=== PATIENT | female | born 1945 | race Caucasian/White ===

== ENCOUNTER 2016-10-12 16:01 | Inpatient (IN) | payer MEDICARE, MEDICAID ==
--- NOTE | 2016-10-12 16:14 | ED PDOC ---
Arrival/HPI - General Chief Complaint: Dizziness/Lightheaded Time Seen by Provider: 10/12/16 16:10 Historian: Family - History of Present Illness Narrative History of Present Illness (Text): 10/12/16 16:14 A 71 year old female, whose past medical history includes type 2 diabetes, hypertension, dyslipidemia, subaortic stenosis, pulmonary hypertension, and junctional bradycardia arrhythmias, was brought into the emergency department by family complaining of lethargy and generalized weakness today. History provided by family members who are present in the emergency room and through the phone. Family reports patient has been compliant with her medication and took it this morning. Family deny any fever, vomiting, diarrhea, chest pain, shortness of breath or any other complaints. HPI and ROS limited due to the acuity of patients condition. PMD: Dr. Almeida Time/Duration: Other (Today) Symptom Course: Unchanged Quality: Other Context: Home Past Medical History - Provider Review Nursing Documentation Reviewed: Yes - Infectious Disease Hx of Infectious Diseases: None - Tetanus Immunization Tetanus Immunization: Unknown - Cardiac Hx Cardiac Disorders: Yes Hx Hypertension: Yes - Pulmonary Hx Respiratory Disorders: Yes Hx Chronic Obstructive Pulmonary Disease (COPD): Yes - Neurological Hx Neurological Disorder: Yes (syncope) Hx Dizziness: Yes - HEENT Hx HEENT Disorder: Yes Hx Cataracts: (denies) Other/Comment: according to family pt had b/l eye sx but not for cataracts, unknown what the sx was for - Renal Hx Renal Disorder: Yes Hx Renal Failure: (renal insufficiency) - Endocrine/Metabolic Hx Endocrine Disorders: Yes Hx Diabetes Mellitus Type 2: Yes - Hematological/Oncological Hx Blood Disorders: Yes Hx Anemia: Yes - Integumentary Hx Dermatological Disorder: No - Musculoskeletal/Rheumatological Hx Musculoskeletal Disorders: Yes Hx Arthritis: Yes Hx Rheumatoid Arthritis: Yes - Gastrointestinal Hx Gastrointestinal Disorders: Yes Hx Gastroesophageal Reflux: Yes - Genitourinary/Gynecological Hx Genitourinary Disorders: No - Psychiatric Hx Psychophysiologic Disorder: No Hx Substance Use: No - Surgical History Hx Cardiac Catheterization: Yes Other/Comment: malignant neoplasm of 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 - Anesthesia Hx Anesthesia: Yes Hx Anesthesia Reactions: No Hx Malignant Hyperthermia: No - Suicidal Assessment Feels Threatened In Home Enviroment: No Family/Social History - Physician Review Nursing Documentation Reviewed: Yes Family/Social History: No Known Family HX Smoking Status: Never Smoked Hx Alcohol Use: No Hx Substance Use: No Hx Substance Use Treatment: No Allergies/Home Meds Allergies/Adverse Reactions: Allergies No Known Allergies Allergy (Verified 10/12/16 16:10) Home Medications: Home Meds Medication Instructions Recorded Confirmed Atorvastatin Calcium [Lipitor] 40 mg PO HS 05/19/14 10/12/16 Liraglutide [Victoza 2-Elvin] 1.8 mg SC DAILY 05/19/14 10/12/16 Sitagliptin Phos/Metformin HCl 1 each PO BID 05/29/16 10/12/16 [Janumet 50-1,000 mg Tablet] Furosemide [Lasix] 20 mg PO DAILY 06/02/16 10/12/16 amLODIPine [Norvasc] 10 mg PO DAILY 06/02/16 10/12/16 Acetaminophen/Butalbital/Caf 1 tab PO QID 10/12/16 10/12/16 [Fioricet] Cyanocobalamin [Vitamin B12 100 100 mcg PO DAILY 10/12/16 10/12/16 mcg Tab] FLUoxetine [Prozac] 10 mg PO DAILY 10/12/16 10/12/16 Famotidine [Pepcid] 20 mg PO BID 10/12/16 10/12/16 Furosemide [Lasix] 40 mg PO DAILY 10/12/16 10/12/16 Gabapentin [Neurontin] 300 mg PO DAILY 10/12/16 10/12/16 Lipase/Protease/Amylase [Creon Dr 1 each PO TID 10/12/16 10/12/16 24,000 Units Capsule] Losartan [Cozaar] 100 mg PO DAILY 10/12/16 10/12/16 Metoprolol Succinate [Toprol XL] 25 mg PO DAILY 10/12/16 10/12/16 Potassium Chloride [K-Dur 20] 20 meq PO DAILY 10/12/16 10/12/16 Solifenacin Succinate [Vesicare] 5 mg PO DAILY 10/12/16 10/12/16 Review of Systems - Review of Systems Systems not reviewed;Unavailable: Acuity of Condition Physical Exam - Physical Exam Narrative Physical Exam (Text): - Physical exam Patient appears age appropriate, breathing without difficulty and no airway comprise. - Systems Exam Head: Present: Atraumatic, Normocephalic Pupils: Present: PERRL Extraocular Muscles: Present: EOMI Conjunctiva: Present: Normal Mouth: Present: Moist Mucous Membranes Neck: Present: Normal Range of Motion. No: MIDLINE TENDERNESS, Paraspinal Tenderness Respiratory/Chest: Present: Clear to Auscultation, Good Air Exchange. No: Respiratory Distress, Accessory Muscle Use, Tachypneic Cardiovascular: Present: Regular Rate and Rhythm, Normal S1, S2, Peripheral Pulses Present. No: Murmurs Abdomen: Present: Normal Bowel Sounds, No: Tenderness, Peritoneal Signs, Rebound, Guarding, Distention Back: Present: Normal Inspection. No: Midline Tenderness, Paraspinal Tenderness Upper Extremity: Present: Normal Inspection. No: Cyanosis, Edema Lower Extremity: +1 pitting edema bilaterally, with no asymmetry or tenderness to palpation. Neurological: Present: GCS=15, cranial nerves II through XII fully intact with no cerebellar abnormality, neuro-sensory fully intact. No focal neurological deficits. Skin: Present: Warm, Dry, Normal Color. No: Rashes Lymphatic: Present: OX3, NI, NC Psychiatric: Present: Alert, Lethargic. No: Anxiety Vital Signs Reviewed: Yes Vital Signs Temp Pulse Resp BP Pulse Ox 10/12/16 18:58 46 L 16 79/36 L 98 10/12/16 18:36 75 16 96/46 L 99 10/12/16 18:25 55 L 20 107/43 L 100 10/12/16 18:00 46 L 114/80 99 10/12/16 17:30 42 L 18 100/42 L 98 10/12/16 17:15 42 L 18 80/43 L 98 10/12/16 17:00 44 L 18 73/45 L 99 10/12/16 16:45 44 L 18 96/44 L 98 10/12/16 16:30 44 L 16 93/44 L 99 10/12/16 16:14 97.5 F L 44 L 14 103/49 L 94 L Temperature: Afebrile Blood Pressure: Hypotensive Pulse: Bradycardic Respiratory Rate: Normal Appearance: Positive for: Well-Appearing, Non-Toxic, Comfortable Pain Distress: None Mental Status: Positive for: Lethargic, other (Alert) Medical Decision Making ED Course and Treatment: 10/12/16 16:14 Impression: A 71 year old female brought in by family for lethargy and generalized weakness. On evaluation, patient is alert and lethargic. No airway compromise or difficulty breathing. Differential Diagnosis included but are not limited to: Hyperkalemia vs. Electrolyte disturbance vs. Hypothyroidism Plan: -- Chest xray -- Labs -- Blood and Urine culture -- Urinalysis -- Atropine and IV fluids -- Reassess and disposition Prior Visits: Patient's previous records reviewed. Patient was discharged on 06/02/16 from the hospital after being admitted for weakness, dyspnea, and palpitations. Patient was found to be hyperkalemic at 5.7 and she also had acute kidney injury and was bradycardic. Patient was admitted into the intensive care unit. Patient had an echo performed which showed ejection fraction of 60-65% with dilated IVC which was consistent with her known history of pulmonary hypertension. Progress Notes: 10/12/16 17:00 Patient's chest x-ray shows cardiomegaly, no effusions, no pneumothorax. No changes versus 06/01/60. Interpreted by me. Patient's EKG shows junctional bradycardia, 43 bpm, no ST segment elevations. Interpreted by me. 10/12/16 17:[address] Harrington, from ICU, who states he will evaluate patient Case discussed in detail with Dr. Mar, kitman, who recommends to start patient on Dopamine at 2.5 10/12/16 17:25 pt's repeat BP in the 100's systolic repeat EKG still junctional 40's pt's family report no betal luis meds. calling pharmacy to confirm pt evaluated by Dr. Harrington, recommends intubation. pt's breathing worsened, needs intubation for airway protection PROCEDURE: INTUBATION Performed by the emergency provider Time: 18:00 Consent: Emergent Timeout: A timeout to verify the correct patient, procedure, and site was performed. Pre-oxygenation: [id number] and passive oxygenation ETT Size: 7 Confirmation: Cords directly visualized via glidascope. as tube passed, good bilateral breath sounds, positive CO2 detector color change, tube fogging, adequate chest rise, improving pulse oximetry reading, improved skin color, and absence of gastric sounds,. ETT Secured: The cuff was inflated and the tube was secured appropriately at a distance of 22 cm at the lip. Post-Procedure: There were no immediate complications. pt seen by Dr. Mar, placed orders 10/12/16 19:21 confirmed with pt's RN, states called pharmacy and pt is taking metoprolol. glucagon ordered - Critical Care Critical Care Minutes: 30 minutes - Lab Interpretations Lab Results: 10/12/16 16:16 10/12/16 16:16 Lab Results 10/12/16 16:16: TSH 3rd Generation 3.20 10/12/16 16:16: Sodium 134, Potassium 4.5, Chloride 100, Carbon Dioxide 23, Anion Gap 16, BUN 50 H, Creatinine 1.3, Est GFR ( Amer) 49, Est GFR (Non- Af Amer) 40, Random Glucose 255 H, Calcium 8.8, Phosphorus 4.7 H, Magnesium 2.0 , Total Bilirubin 0.4, AST 14 L, ALT 20, Alkaline Phosphatase 133, Lactate Dehydrogenase 511, Total Creatine Kinase 45, Troponin I < 0.01 D, NT-Pro-B Natriuret Pep 838 H, Total Protein 7.3, Albumin 3.7, Globulin 3.6, Albumin/ Globulin Ratio 1.0 L 10/12/16 16:16: PT 10.9, INR 1.01, APTT 30.5 10/12/16 16:16: WBC 5.7 D, RBC 3.44 L, Hgb 9.5 L, Hct 29.2 L, MCV 84.9, MCH 27.6, MCHC 32.5, RDW 14.7 H, Plt Count 276, MPV 10.8, Gran % 64.6, Lymph % (Auto ) 22.2, Sawyer % (Auto) 8.6 H, Eos % (Auto) 3.7, Baso % (Auto) 0.9, Gran # 3.67, Lymph # 1.3, Sawyer # 0.5, Eos # 0.2, Baso # 0.05 I have reviewed the lab results: Yes - RAD Interpretation Radiology Orders: 10/12/16 16:22 CHEST PORTABLE [RAD] Stat 10/12/16 18:29 CXR [CHEST PORTABLE] [RAD] Stat 10/12/16 19:02 CHEST,ABDOMEN, PELVIS W/O CONT [CT] Stat - Medication Orders Current Medication Orders: Dopamine HCl/Dextrose (Dopamine 400mg/250ml D5w) 400 mg in 250 mls @ 9.777 mls/ hr IV .Q24H PRN; Protocol; 2.5 MCG/KG/MIN PRN Reason: TITRATE PER MD ORDER Last Admin: 10/12/16 17:32 Dose: 9.777 mls/hr Ceftriaxone Sodium (Rocephin 1 Gram Ivpb) 1 gm in 100 mls @ 200 mls/hr IVPB STAT STA PRN Reason: Protocol Stop: 10/12/16 19:30 Last Admin: 10/12/16 19:16 Dose: 200 mls/hr Propofol (Diprivan) 1,000 mg in 100 mls @ 3.13 mls/hr IV .Q24H PRN; Protocol; 5 MCG/KG/MIN PRN Reason: TITRATE PER MD ORDER Discontinued Medications Atropine Sulfate (Atropine) Confirm Administered Dose 1 mg .ROUTE .STK-MED ONE Stop: 10/12/16 16:21 Last Admin: 10/12/16 16:22 Dose: 0.5 mg Atropine Sulfate (Atropine) 0.5 mg IVP STAT STA Stop: 10/12/16 16:24 Last Admin: 10/12/16 16:35 Dose: 0.5 mg Fentanyl (Fentanyl) Confirm Administered Dose 250 mcg IV .STK-MED ONE Stop: 10/12/16 17:53 Last Admin: 10/12/16 19:04 Dose: 250 mcg Sodium Chloride (Sodium Chloride 0.9%) 1,000 mls @ 1,000 mls/hr IV .Q1H STA Stop: 10/12/16 17:21 Last Admin: 10/12/16 16:35 Dose: 1,000 mls/hr Dopamine HCl/Dextrose (Dopamine 400mg/250ml D5w) Confirm Administered Dose 400 mg in 250 mls @ ud IV .STK-MED ONE Stop: 10/12/16 17:27 Last Admin: 10/12/16 19:07 Dose: Propofol (Diprivan) Confirm Administered Dose 1,000 mg in 100 mls @ ud .ROUTE .STK-MED ONE Stop: 10/12/16 18:26 Last Admin: 10/12/16 18:30 Dose: 5 mg Ketamine HCl (Ketalar) Confirm Administered Dose 200 mg .ROUTE .STK-MED ONE Stop: 10/12/16 17:48 Last Admin: 10/12/16 18:20 Dose: 140 mg - Scribe Statement The provider has reviewed the documentation as recorded by the Chikaibmary ann Ellington Provider Scribe Attestation: All medical record entries made by the Scribe were at my direction and personally dictated by me. I have reviewed the chart and agree that the record accurately reflects my personal performance of the history, physical exam, medical decision making, and the department course for this patient. I have also personally directed, reviewed, and agree with the discharge instructions and disposition. Disposition/Present on Arrival - Present on Arrival Any Indicators Present on Arrival: No History of DVT/PE: No History of Uncontrolled Diabetes: No Urinary Catheter: No History of Decub. Ulcer: No History Surgical Site Infection Following: None - Disposition Have Diagnosis and Disposition been Completed?: Yes Diagnosis: Bradycardia Disposition: HOSPITALIZED Disposition Time: 18:42 Patient Plan: Admission Condition: CRITICAL Referrals: David Almeida MD [Primary Care Provider] - Follow up with primary
[2016-10-12] MEDS ORDERED: Sodium Chloride 0.9% 1,000 ML IV STA (16:22)
[2016-10-12 16:41] LABS: ADD MANUAL DIFF? NO
[2016-10-12 16:44] LABS: BASO # 0.05 K/mm3 (0.0-2.0); BASO % 0.9 % (0.0-3.0); EOS # 0.2 (0.0-0.7); EOS % 3.7 % (1.5-5.0); GRAN # 3.67 (1.4-6.5); GRAN % 64.6 % (50.0-68.0); HEMATOCRIT 29.2 % (36.0-48.0); LYMPH # 1.3 (1.2-3.4); LYMPH % 22.2 % (22.0-35.0); MEAN CELL VOLUME 84.9 fL (80.0-105.0); MEAN CORPUSCULAR HEMOGLOBIN 27.6 pg (25.0-35.0); MEAN CORPUSCULAR HGB CONC 32.5 g/dl (31.0-37.0); MEAN PLATELET VOLUME 10.8 fl (7.0-11.0); MONO # 0.5 (0.1-0.6); MONO % 8.6 % (1.0-6.0); PLATELET COUNT 276 10^3/uL (120.0-450.0); RED CELL DISTRIBUTION WIDTH 14.7 % (11.5-14.5); WHITE BLOOD COUNT 5.7 10^3/ul (4.5-11.0)
[2016-10-12 16:55] LABS: INR 1.01 (0.93-1.08); PARTIAL THROMBOPLASTIN TIME 30.5 Seconds (23.7-30.8)
[2016-10-12 16:57] LABS: ALKALINE PHOSPHATASE 133 U/L (38-133); ALT/SGPT 20 U/L (7-56); AST/SGOT 14 U/L (15-39); BILIRUBIN,TOTAL 0.4 mg/dL (0.2-1.3); BLOOD UREA NITROGEN 50 mg/dL (7-21); CALCIUM 8.8 mg/dL (8.4-10.5); CARBON DIOXIDE 23 mmol/L (21-33); CHLORIDE 100 mmol/L (98-107); GFR AFRICAN-AMERICAN 49; GLUCOSE,RANDOM 255 mg/dL (70-110); PHOSPHOROUS 4.7 mg/dL (2.5-4.5); POTASSIUM 4.5 mmol/L (3.6-5.0); SODIUM 134 mmol/L (132-148); TOTAL PROTEIN 7.3 g/dL (5.8-8.3)
[2016-10-12 17:07] LABS: TROPONIN I < 0.01 ng/mL
[2016-10-12] MEDS ORDERED: DOPamine 400mg/250ml D5W 400 MG/250 ML BAG IV ONE (17:26)
[2016-10-12] MEDS: DOPamine 400mg/250ml D5W 400 MG/250 ML BAG IV PRN ×2 (17:32→20:15)
[2016-10-12] MEDS ORDERED: Ketamine 10 mg/ml Inj (20 ml) ONE (17:47)
[2016-10-12] MEDS ORDERED: Propofol 10 mg/ml 1,000 MG/100 ML VIAL ONE (18:25)
[2016-10-12] MEDS ORDERED: cefTRIAXone 1 gm 1 GM/100 ML BAG IVPB STA (19:01)
--- NOTE | 2016-10-12 19:15 | CP.PCM.CON ---
<Chavo Sandhu - Last Filed: 10/12/16 19:02> History of Present Illness - History of Present Illness History of Present Illness: ICU Consult Note for Dr. 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 HPI/ROS from patient limited due to AMS/minimal responsiveness; primarily obtained from at bedside and son on phone. Per Son, patient has been poorly compliant with her home medication regimen, as she bases what she takes on her AM heart rate and blood pressures. Son and report that her blood pressure is always elevated in the morning (up to SBP 160's), and is always low at night (down to SBP 80's); she takes her meds in the morning. Family also reports persistent abdominal pain and diarrhea x 1 week. She has previously been admitted to [facility] [place] for junctional bradycardia 2/2 medication overdose; the last episode resulted in a junctional milagro that persisted for 2 days before breaking. In the ED, patient was persistently somnolent, becoming less responsive to staff , verbal, and physical stimuli. Due to persistent bradycardia and hypoactive/ altered mental state, the decision was made to intubate the patient to protect the airway. Patient received several doses of ketamine and fentanyl to achieve sedation. She was also persistently bradycardic and borderline hypotensive despite being started on a 2.5mcg/kg/hr dopamine drip, which further persisted after drip increased to 5.0 mcg/kg/hr. After intubation, on increased dopamine drip for ~10 minutes, HR stabilized to 53-55. Patient vomitted during the intubation procedure 2 times, suctioned was performed and Rocephin was given to cover for possible aspiration pneumonia/pneumonitis. Review of Systems - Review of Systems Systems not reviewed;Unavailable: Altered Mental Status, Intubated - Constitutional Constitutional: Fatigue, Lethargy, Malaise - Cardiovascular Cardiovascular: Lightheadedness - Gastrointestinal Gastrointestinal: Abdominal Pain, Diarrhea Past Patient History - Infectious Disease Hx of Infectious Diseases: None - Tetanus Immunizations Tetanus Immunization: Unknown - Past Medical History & Family History Past Medical History?: Yes - Past Social History Smoking Status: Never Smoked - CARDIAC Hx Cardiac Disorders: Yes Hx Hypertension: Yes - PULMONARY Hx Respiratory Disorders: Yes Hx Chronic Obstructive Pulmonary Disease (COPD): Yes - NEUROLOGICAL Hx Neurological Disorder: Yes (syncope) Hx Dizziness: Yes - HEENT Hx HEENT Problems: Yes Hx Cataracts: (denies) Other/Comment: according to family pt had b/l eye sx but not for cataracts, unknown what the sx was for - RENAL Hx Chronic Kidney Disease: Yes Hx Renal Failure: (renal insufficiency) - ENDOCRINE/METABOLIC Hx Endocrine Disorders: Yes Hx Diabetes Mellitus Type 2: Yes - HEMATOLOGICAL/ONCOLOGICAL Hx Blood Disorders: Yes Hx Anemia: Yes - INTEGUMENTARY Hx Dermatological Problems: No - MUSCULOSKELETAL/RHEUMATOLOGICAL Hx Musculoskeletal Disorders: Yes Hx Arthritis: Yes Hx Rheumatoid Arthritis: Yes - GASTROINTESTINAL Hx Gastrointestinal Disorders: Yes Hx Gastroesophageal Reflux: Yes - GENITOURINARY/GYNECOLOGICAL Hx Genitourinary Disorders: No - PSYCHIATRIC Hx Psychophysiologic Disorder: No Hx Substance Use: No - SURGICAL HISTORY Hx Cardiac Catheterization: Yes Other/Comment: malignant neoplasm of 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 - ANESTHESIA Hx Anesthesia: Yes Hx Anesthesia Reactions: No Hx Malignant Hyperthermia: No Meds Allergies/Adverse Reactions: Allergies Allergy/AdvReac Type Severity Reaction Status Date / Time No Known Allergies Allergy Verified 10/12/16 16:10 - Medications Medications: Current Medications Dopamine HCl/Dextrose (Dopamine 400mg/250ml D5w) 400 mg in 250 mls @ 9.777 mls/ hr IV .Q24H PRN; Protocol; 2.5 MCG/KG/MIN PRN Reason: TITRATE PER MD ORDER Ceftriaxone Sodium (Rocephin 1 Gram Ivpb) 1 gm in 100 mls @ 200 mls/hr IVPB STAT STA PRN Reason: Protocol Stop: 10/12/16 19:30 Physical Exam - Constitutional Appears: In Acute Distress (lethargic, difficult to arouse, difficult to remain orriented), Other (Ill-appearing, obtunded) - Head Exam Head Exam: ATRAUMATIC, NORMOCEPHALIC - Eye Exam Eye Exam: absent: Conjunctival injection, Scleral icterus Pupil Exam: absent: Fixed, Irregular, Unequal Additional comments: intermittently opening eyes to track verbal and physical stimuli, able to track some staff and at bedside, not following commands sufficiently well to assess EOMI - ENT Exam ENT Exam: Mucous Membranes Moist. absent: Normal Oropharynx (small vocal cords , surrounding area significantly edematous, no exudate noted) - Neck Exam Neck exam: Negative for: Tenderness, Thyromegaly Additional comments: no JVD large, short neck - Respiratory Exam Respiratory Exam: Decreased Breath Sounds (initially decreased breath sounds pre -intubation 2/2 shallow respiratory ), Clear to Auscultation Bilateral (faint breath sounds prior to intubation due to shallow breathing, breath sounds heard in all quadrants after intubated and on ambu-bag), Respiratory Distress ( shallow and minimal breathing pre-intubation). absent: Prolonged Expiratory Phase, Rales, Rhonchi, Wheezes, Stridor, NORMAL BREATHING PATTERN - Cardiovascular Exam Cardiovascular Exam: Bradycardia (persisting bradycardia, 39-42 on bedside monitor, junctional rhythm on bedside monitor, no visible P-waves), REGULAR RHYTHM, +S1, +S2. absent: Tachycardia, Clicks, Diastolic murmur, JVD, RRR, +S4 , Systolic Murmur Additional comments: junctional rhythm persisting on dopamine drip, hypotensive to 90's systolic improved to 50's post-intubation and on increased dopamine drip - GI/Abdominal Exam GI & Abdominal Exam: Diminished Bowel Sounds, Firm (no discrete masses, but firm , possible palpable loops of bowel), Tenderness. absent: Hyperactive Bowel Sounds, Hypoactive Bowel Sounds, Mass, Normal Bowel Sounds, Pulsatile Mass, Rigid, Soft - Rectal Exam Rectal Exam: Deferred - Extremities Exam Additional comments: spontaneously moving upper and lower extremities +2 radial pulses bilaterally trace-+1 pitting edema bilateral lower extremities, no erythema, no gross asymmetry all extremities warm to palpation - Neurological Exam Additional comments: initially responsive to some questions and commands, became increasingly obtunded, oriented to self and location, but required repeated prompting for most questions some spontaneous movements of extremities pre-intubation/sedation - Psychiatric Exam Additional comments: lethargic, increasingly obtunded - Skin Skin Exam: Dry, Intact, Normal Color, Warm Results - Vital Signs Recent Vital Signs: Last Vital Signs Temp 97.5 F L 10/12/16 16:14 Pulse 46 L 10/12/16 18:00 Resp 18 10/12/16 17:30 BP 114/80 10/12/16 18:00 Pulse Ox 99 10/12/16 18:00 - Labs Result Diagrams: 10/12/16 16:16 10/12/16 16:16 Labs: Laboratory Results - last 24 hr 10/12/16 10/12/16 10/12/16 16:16 16:16 16:16 WBC 5.7 D RBC 3.44 L Hgb 9.5 L Hct 29.2 L MCV 84.9 MCH 27.6 MCHC 32.5 RDW 14.7 H Plt Count 276 MPV 10.8 Gran % 64.6 Lymph % (Auto) 22.2 Bro[place] % (Auto) 8.6 H Eos % (Auto) 3.7 Baso % (Auto) 0.9 Gran # 3.67 Lymph # 1.3 Broome # 0.5 Eos # 0.2 Baso # 0.05 PT 10.9 INR 1.01 APTT 30.5 Sodium 134 Potassium 4.5 Chloride 100 Carbon Dioxide 23 Anion Gap 16 BUN 50 H Creatinine 1.3 Est GFR ( Amer) 49 Est GFR (Non-Af Amer) 40 Random Glucose 255 H Calcium 8.8 Phosphorus 4.7 H Magnesium 2.0 Total Bilirubin 0.4 AST 14 L ALT 20 Alkaline Phosphatase 133 Lactate Dehydrogenase 511 Total Creatine Kinase 45 Troponin I < 0.01 D NT-Pro-B Natriuret Pep 838 H Total Protein 7.3 Albumin 3.7 Globulin 3.6 Albumin/Globulin Ratio 1.0 L TSH 3rd Generation 10/12/16 16:16 WBC RBC Hgb Hct MCV MCH MCHC RDW Plt Count MPV Gran % Lymph % (Auto) Broome % (Auto) Eos % (Auto) Baso % (Auto) Gran # Lymph # Broome # Eos # Baso # PT INR APTT Sodium Potassium Chloride Carbon Dioxide Anion Gap BUN Creatinine Est GFR ( Amer) Est GFR (Non-Af Amer) Random Glucose Calcium Phosphorus Magnesium Total Bilirubin AST ALT Alkaline Phosphatase Lactate Dehydrogenase Total Creatine Kinase Troponin I NT-Pro-B Natriuret Pep Total Protein Albumin Globulin Albumin/Globulin Ratio TSH 3rd Generation 3.20 Assessment & Plan - Assessment and Plan (Free Text) Assessment: his is a 71 yo F with PMH notable for DM-2, HTN, dyslipidemia, subaortic stenosis, Pulm HTN, and 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 She was intubated and sedated due to concern for inability to protect airway, and remains persistently bradycardic, with potential need for pacing. Plan: Neuro: -initially lethargic but arousable, increasingly obtunded, sedated and intubated to protect airway -initially spontaneously moving extremities, now restrained, sedated on propofol -maintain normothermia Pulm: -intubated and sedated -conservative O2 management, SaO2 > 90%, paO2 > 60 -Protective lung ventilation strategy, VAP bundle, head of bed to 30 degrees, aspiration precautions -ABG post-intubation, f/u and adjust settings based on results -Chest/Abd/Pelvis CT w/o contrast ordered, f/u -Difficult intubation, edematous area surrounding vocal cords, cause unclear, likely untreated/poorly managed ISABELLE -CXR confirms ETT placement; repeat CXR in AM -Rocephin x1 due to risk for aspiration pneumonia/pneumonitis (emesis x2 during intubation) Cardio -junctional bradycardia, 40's in ED, now up to 50-55 in ED after intubation and increased dopamine drip to 5mcg/kg/hr; SBP 90's-110's in ED, stabilized after intubation and dopamine drip -dopamine for pressor and HR support, continue to monitor; patient will need central line and central pressor support, will obtain consent from -Pacer pads placed, set to pace if HR drops below 40 -Cardio (Dr. Mar) on board, appreciate all recs; saw pt in ED, aware of situation, reports similar prior episodes due to likely overdose on home beta- blockers and possibly calcium channel blockers -Echo in 05/30/16 notable for LVEF 66%, asymmetrical LVH, proximal septal thickening with IHSS pathology, trace AR, mild , moderate MR, mild-mod TR, IVC dilation (please see full reports for further details) -repeat EKG in AM GI: -abd fullness, family reports 1 week of diarrhea, abd pain -CT chest/abd/pelvis, f/u -NPO -Protonix for GI ppx Renal: -de los santos -strict I's&O's, daily weights -monitor Cr -monitor and replete electrolytes; Mg/K/Ca wnl, elevated phos today, continue to monitor -avoid nephrotoxic drugs where feasible -maintain euvolemia and euglycemia Heme: -Hgb 9.5, per prior charting, at baseline -coags wnl -continue to monitor ID: -WBCs 5.7, afebrile -Rocephin x1 due to risk for aspiration pneumonia/pneumonitis (emesis x2 during intubation) -Continue to monitor Dispo: ICU, intubated and sedated, pending CT chest/abd/pelvis FEN: NPO Access: Peripheral IV, ETT Consults: Cardio Ppx: Protonix for GI, Heparin SC for DVT Patient seen, reviewed, and discussed with attending, Dr. Harrington. - Date & Time Date: 10/12/16 Time: 20:03 <Juany HU,Keyanna H - Last Filed: 10/13/16 13:51> Meds - Medications Medications: Current Medications Albuterol Sulfate (Albuterol 0.083% Inhal Radha (2.5 Mg/3 Ml) Ud) 1.25 mg IH [id number] [facility] Enoxaparin Sodium (Lovenox) 40 mg SC DAILY SONYA PRN Reason: Protocol Stop: 10/18/16 07:00 Last Admin: 10/13/16 10:15 Dose: 40 mg Dopamine HCl/Dextrose (Dopamine 400mg/250ml D5w) 400 mg in 250 mls @ 9.777 mls/ hr IV .Q24H PRN; Protocol; 2.5 MCG/KG/MIN PRN Reason: TITRATE PER MD ORDER Last Admin: 10/13/16 10:58 Dose: 12.78 mcg/kg/min, 49.995 mls/hr Propofol (Diprivan) 1,000 mg in 100 mls @ 3.13 mls/hr IV .Q24H PRN; Protocol; 5 MCG/KG/MIN PRN Reason: TITRATE PER MD ORDER Last Admin: 10/13/16 07:05 Dose: 19.17 mcg/kg/min, 12 mls/hr Doxycycline Hyclate 100 mg/ (Sodium Chloride) 100 mls @ 100 mls/hr IVPB Q12 SONYA PRN Reason: Protocol Last Admin: 10/13/16 10:28 Dose: 100 mls/hr Cefepime HCl (Maxipime 2gm) 2 gm in 100 mls @ 100 mls/hr IVPB Q12 [facility] PRN Reason: Protocol Stop: 10/18/16 10:16 Last Admin: 10/13/16 11:15 Dose: 100 mls/hr Insulin Detemir (Levemir) 10 unit SC BID [facility] Insulin Human Regular (Humulin R High) 0 units SC ACHS [facility] PRN Reason: Protocol Last Admin: 10/13/16 12:01 Dose: 12 units Methylprednisolone (Solu-Medrol) 40 mg IVP Q12 [facility] Last Admin: 10/13/16 10:15 Dose: 40 mg Pantoprazole Sodium (Protonix Inj) 40 mg IVP DAILY [facility] Last Admin: 10/13/16 10:16 Dose: 40 mg Results - Vital Signs Recent Vital Signs: Last Vital Signs Temp 97.8 F 10/13/16 04:00 Pulse 62 10/13/16 12:00 Resp 16 10/13/16 08:20 BP 142/45 L 10/13/16 12:00 Pulse Ox 97 10/13/16 12:00 - Labs Result Diagrams: 10/13/16 08:10 10/13/16 08:10 Labs: Laboratory Results - last 24 hr 10/13/16 10/13/16 10/13/16 06:00 06:15 08:10 WBC 9.7 D RBC 3.39 L Hgb 9.3 L Hct 28.8 L MCV 85.0 MCH 27.4 MCHC 32.3 RDW 14.2 Plt Count 273 MPV 10.7 Gran % 79.7 H Lymph % (Auto) 10.9 L [place] % (Auto) 8.9 H Eos % (Auto) 0.3 L Baso % (Auto) 0.2 Gran # 7.70 H Lymph # 1.1 L Bro[place] # 0.9 H Eos # 0.0 Baso # 0.02 pCO2 37 pO2 247.0 H HCO3 17.8 L ABG pH 7.29 L ABG Total CO2 18.9 L ABG O2 Saturation 98.5 H ABG Base Excess -8.1 L ABG Potassium 4.1 Sodium 132.0 Chloride 108.0 H Glucose 419 H* Lactate 1.1 FiO2 100.0 Potassium Carbon Dioxide Anion Gap BUN Creatinine Est GFR ( Amer) Est GFR (Non-Af Amer) Random Glucose Hemoglobin A1c 7.9 H Calcium Phosphorus Magnesium Total Bilirubin AST ALT Alkaline Phosphatase Lactate Dehydrogenase Total Creatine Kinase Troponin I Total Protein Albumin Globulin Albumin/Globulin Ratio Triglycerides Cholesterol LDL Cholesterol Direct HDL Cholesterol Arterial Blood Potassium 4.1 10/13/16 08:10 WBC RBC Hgb Hct MCV MCH MCHC RDW Plt Count MPV Gran % Lymph % (Auto) [place] % (Auto) Eos % (Auto) Baso % (Auto) Gran # Lymph # [place] # Eos # Baso # pCO2 pO2 HCO3 ABG pH ABG Total CO2 ABG O2 Saturation ABG Base Excess ABG Potassium Sodium 131 L Chloride 104 Glucose Lactate FiO2 Potassium 4.3 Carbon Dioxide 16 L Anion Gap 15 BUN 51 H Creatinine 1.6 H Est GFR ( Amer) 38 Est GFR (Non-Af Amer) 32 Random Glucose 373 H* D Hemoglobin A1c Calcium 7.7 L Phosphorus 4.6 H Magnesium 1.8 Total Bilirubin 0.5 AST 17 ALT 42 Alkaline Phosphatase 163 H Lactate Dehydrogenase 524 Total Creatine Kinase 31 L Troponin I 0.03 D Total Protein 6.4 Albumin 3.0 Globulin 3.4 Albumin/Globulin Ratio 0.9 L Triglycerides 109 Cholesterol 175 LDL Cholesterol Direct 95 HDL Cholesterol 51 Arterial Blood Potassium Attending/Attestation - Attestation I have personally seen and examined this patient.: Yes I have fully participated in the care of the patient.: Yes I have reviewed all pertinent clinical information: Yes Notes (Text): 10/13/16 13:51 Please see attending note
[2016-10-12] MEDS ORDERED: Glucagon Recombinant 1 mg Inj IV STA (19:20)
[2016-10-12 19:49] LABS: URINE BILIRUBIN NEGATIVE (NEGATIVE); URINE BLOOD NEGATIVE (NEGATIVE); URINE GLUCOSE (UA) NEGATIVE (NEGATIVE); URINE KETONE NEGATIVE (NEGATIVE); URINE LEUKOCYTE ESTERASE SMALL Leu/uL (NEGATIVE); URINE PROTEIN NEGATIVE mg/dL (<30 mg/dL); URINE UROBILINOGEN 0.2 E.U./dL (<1 E.U./dL)
[2016-10-12 19:50] LABS: URINE APPEARANCE CLEAR (CLEAR); URINE COLOR YELLOW (YELLOW)
[2016-10-12] MEDS: Propofol 10 mg/ml 1,000 MG/100 ML VIAL IV PRN (20:10)
[2016-10-12 20:19] LABS: URINE BACTERIA LARGE (NEG); URINE EPITHELIAL CELLS 0 - 2 /hpf (0-5); URINE RBC 0 - 2 /hpf (0-2)
[2016-10-12] MEDS ORDERED: PED IV STA (20:51)
[2016-10-12] MEDS ORDERED: ATROPINE IV STA (20:51)
--- NOTE | 2016-10-12 20:52 | CT ---
EXAM: CT Chest Without Intravenous Contrast CLINICAL HISTORY: 71 years old, female; Signs and symptoms; Fever; Shortness of breath; Additional info: SOB TECHNIQUE: Axial computed tomography images of the chest without intravenous contrast. This CT exam was performed using one or more of the following dose reduction techniques: automated exposure control, adjustment of the mA and/or kV according to patient size, and/or use of iterative reconstruction technique. Coronal and sagittal reformatted images were created and reviewed. COMPARISON: There are no prior studies for comparison. FINDINGS: Tubes, lines and devices: An endotracheal tube is in place. Tip of the tube is at the lyric. Lungs and pleural spaces: Major bronchi are patent. There is scarring at the lung apices. There is nodular pleural thickening at the right apex. There is asymmetric pleural thickening in the posterior hemithoraces bilaterally. There are asymmetric groundglass opacities right greater than left. There is atelectasis and scarring in the right middle lobe. There is minimal atelectasis and scarring in the lingula. There is airspace disease at both lung bases with partial opacification of both lower lobes. There are air bronchograms. There are no definite effusions. Heart and vasculature: The heart is enlarged. There are coronary calcifications. There is a small pericardial effusion.There is calcification of the mitral annulus. Aorta is normal in caliber.There are vascular calcifications. Main pulmonary artery is mildly dilated. There is iatrogenic venous air Mediastinum: Esophagus is not optimally demonstrated. There is shotty mediastinal adenopathy. Denise are not optimally evaluated without contrast material. Thyroid: Thyroid is enlarged and heterogeneous. Bones/joints: There are degenerative changes in the osseus structures. Soft tissues: unremarkable Upper abdomen: Referred to following report for abdominal findings IMPRESSION: Cardiomegaly and atherosclerotic disease; small pericardial effusion; slightly low position of endotracheal tube; bilateral airspace disease greatest at the lung bases with partial consolidation of both lower lobes suggesting pneumonia; iatrogenic venous air Additional findings as described above. EXAM: CT Abdomen and Pelvis Without Intravenous Contrast CLINICAL HISTORY: 71 years old, female; Signs and symptoms; Fever; Shortness of breath; Additional info: SOB TECHNIQUE: Axial computed tomography images of the abdomen and pelvis without intravenous contrast. This CT exam was performed using one or more of the following dose reduction techniques: automated exposure control, adjustment of the mA and/or kV according to patient size, and/or use of iterative reconstruction technique. Coronal and sagittal reformatted images were created and reviewed. EXAM DATE/TIME: 10/12/2016 7:02 PM COMPARISON: There are no prior studies for comparison. FINDINGS: Lower thorax: Refer to prior report for chest findings ABDOMEN: Liver: unremarkable Gallbladder and bile ducts: unremarkable Pancreas: Pancreas is atrophic and fatty replaced. Spleen: unremarkable Adrenals: There are bilateral adrenal nodules. Kidneys and ureters: Kidneys and ureters are unremarkable. Stomach and bowel: Stomach is partially aerated with an air-fluid level. Rotation is normal. Small bowel is mildly distended with air. There is no obstruction. Terminal ileum is unremarkable. Appendix is unremarkable.Colon is incompletely distended which limits evaluation.There is diverticulosis. Appendix: See stomach and bowel PELVIS: Bladder: Bladder is almost completely empty. There is a Munroe catheter. There is air in the bladder. Reproductive: Uterus is unremarkable. There is mild prominence of both adnexa. There are calcifications in both adnexa. ABDOMEN and PELVIS: Intraperitoneal space: There is no free air. There is no free fluid. Bones/joints: There are degenerative changes in the osseus structures. There is sclerosis at the sacroiliac joints Soft tissues: There is a fat-containing umbilical hernia. There is edema in the subcutaneous fat posterior to the sacrum. Vasculature: There are vascular calcifications. Lymph nodes: There is no pathologic adenopathy. IMPRESSION: No acute solid visceral or bowel abnormality; no CT findings of appendicitis or diverticulitis
--- NOTE | 2016-10-12 22:00 | CON ---
DATE: 10/12/2016 REASON FOR CONSULTATION: Bradycardia, hypotension, distention of abdomen, diarrhea, history of junct ional bradycardia in the past. BRIEF CLINICAL HISTORY: This is a 71-year-old female with past medical history of diabetes, hyperten marlys, hyperlipidemia, obesity, came in with complaint of diarrhea, got worse the patient's diarrhea, and very weak, lethargic. Blood pressure according to the son was going up and down, decided to come to the Emergency Room. In the Emergency Room, the patient was found to be in junctional milagro, hear t rate of 50, blood pressure 110. Soon patient requiring intubation. Currently, the patient is in t he process of being intubated, is at the bedside. I spoke to the family on the telephone, a male, the son. Son named Yeny. Denies any chest pain, shortness of breath, any palpitation. PAST MEDICAL HISTORY: Significant for ____, hyperlipidemia, SENSITIVE TO BETA LUIS, and history o f junctional bradycardia on previous. Last time the patient Cardizem and became very bradycardiac. This time talked to the son on the telephone, he took all the medications not sure which one she is s upposed to take and which ones she is not supposed to take. History of cardiac catheterization in past that revealed nonobstructive coronary artery disease. The patient is suspicious for IHSS with resting gradient 44 mmHg, diabetes, hypertension, hyperlipidemia. Previous cardiac workup as follows: The patient had a cardiac catheterization in 2013. At that time , the patient at one point, patient was on beta luis, digoxin and propranolol and went into a junc tional milagro requiring temporary venous pacemaker. Previous cardiac workup: As mentioned, patient h ad a cardiac catheterization and aortogram that revealed nonobstructive coronary artery disease only limited to OM 2 50% stenosis, otherwise no significant blockage. History of previous echo shows pres erved LV function. SOCIAL HISTORY: Denies any history of alcohol abuse. CURRENT MEDICATIONS: The patient at home was taking amlodipine, metformin, potassium, metoprolol 25 mg, losartan, Lasix, atorvastatin, acetaminophen. REVIEW OF SYSTEMS: As per HPI. PHYSICAL EXAMINATION: VITAL SIGNS: Temperature afebrile, heart rate 46, blood pressure 114/80. HEENT: PERRLA. Extraocular muscles intact. NECK: Supple. No carotid bruits. No thyromegaly. CHEST: Clear to auscultation. HEART: S1, S2 regular. ABDOMEN: Soft. EXTREMITIES: Clubbing and cyanosis negative. LABORATORY DATA: Blood workup as follows: WBC 5.____ , hemoglobin 9.5, hematocrit 29.2, platelet co unt 276. Chemistry shows sodium 134, potassium 4.5, chloride____, carbon dioxide 23, anion gap of 16 , BUN 50, creatinine 1.3. Troponin 0.01. EKG shows junctional milagro. IMPRESSION: Junctional milagro, hypotension and bradycardia. The patient is VERY SENSITIVE TO BETA BL OCKER in the past. The patient got bradycardiac in junctional milagro, history of digoxin, history of beta luis, history of Cardizem in the past that make the patient very sensitive; distention of abd omen, diarrhea. Diabetes, hypertension, hyperlipidemia, history of chronic diarrhea. RECOMMENDATION: If needed, we will intubate the patient. Start dopamine 10 mcg. Right now the maría ent is holding heart rate at 50. Discussed with motor coach chauffeur. Discussed with the ER physician. If n eeded, we will put external pacer. Also get a CAT scan to rule out any intraabdominal pathology as t he patient appears distended which further causes bradycardia because of vagal effect. We will follo w with you. Overall, the patient's condition is critical. Fdc prognosis is guarded. Emphasis made to the son that the PATIENT SHOULD NOT TAKE A BETA LUIS. We will follow with you. Overall, patient's condition is critical. Thank you, Dr. Ponce, for providing the opportunity in taking care of this patient. [place] MD cc: [id number] TT: 10/12/2016 21:59:06 Confirmation # [id number] Dictation # [id number] geovanny
--- NOTE | 2016-10-12 23:39 | CP.PCM.PN ---
Subjective - Date & Time of Evaluation Date of Evaluation: 10/12/16 Time of Evaluation: 23:35 - Subjective Subjective: It was requested to order RUBEN restraint/wrist restraint. Patient occasionally gets agitated. This 71 year old woman was admitted generalized weakness , lethargy. Has PMH of HTN,dyslipidemia,Type II DM, Pulmonary HTN, jucntional bradycardia, subaortic stenosis. Patient has been intubated. Objective - Vital Signs/Intake and Output Vital Signs (last 24 hours): Temp Pulse Resp BP Pulse Ox 97.5 F L 40 L 16 90/48 L 99 10/12/16 16:14 10/12/16 20:15 10/12/16 19:30 10/12/16 19:30 10/12/16 19:30 - Medications Medications: Current Medications Enoxaparin Sodium (Lovenox) 40 mg SC DAILY SONYA PRN Reason: Protocol Stop: 10/18/16 07:00 Dopamine HCl/Dextrose (Dopamine 400mg/250ml D5w) 400 mg in 250 mls @ 9.777 mls/ hr IV .Q24H PRN; Protocol; 2.5 MCG/KG/MIN PRN Reason: TITRATE PER MD ORDER Last Admin: 10/12/16 20:15 Dose: 23 mcg/kg/min, 90 mls/hr Propofol (Diprivan) 1,000 mg in 100 mls @ 3.13 mls/hr IV .Q24H PRN; Protocol; 5 MCG/KG/MIN PRN Reason: TITRATE PER MD ORDER Last Admin: 10/12/16 20:10 Dose: 25 mcg/kg/min, 15.649 mls/hr Doxycycline Hyclate 100 mg/ (Sodium Chloride) 100 mls @ 100 mls/hr IVPB Q12 SONYA PRN Reason: Protocol Ceftriaxone Sodium (Rocephin 1 Gram Ivpb) 1 gm in 100 mls @ 100 mls/hr IVPB DAILY SONYA PRN Reason: Protocol Insulin Human Regular (Humulin R Low) 0 units SC ACHS SONYA PRN Reason: Protocol Pantoprazole Sodium (Protonix Inj) 40 mg IVP DAILY SONYA - Labs Labs: PT 10.9 Seconds (9.9-11.8) 10/12/16 16:16 INR 1.01 (0.93-1.08) 10/12/16 16:16 APTT 30.5 Seconds (23.7-30.8) 10/12/16 16:16 - Constitutional Appears: Well, No Acute Distress - Head Exam Head Exam: ATRAUMATIC, NORMAL INSPECTION, NORMOCEPHALIC - Eye Exam Eye Exam: Normal appearance - ENT Exam Additional comments: Intubated. - Neck Exam Neck Exam: Normal Inspection - Respiratory Exam Respiratory Exam: Clear to Ausculation Bilateral, NORMAL BREATHING PATTERN. absent: Rales, Rhonchi, Wheezes, Respiratory Distress, Stridor - Cardiovascular Exam Cardiovascular Exam: Bradycardia. absent: JVD - GI/Abdominal Exam GI & Abdominal Exam: absent: Distended - Rectal Exam Rectal Exam: Deferred - Extremities Exam Extremities Exam: Normal Inspection - Back Exam Back Exam: NORMAL INSPECTION - Neurological Exam Neurological Exam: Altered Additional comments: Lethargic. - Psychiatric Exam Psychiatric exam: Agitated Additional comments: Intermittent. - Skin Skin Exam: Normal Color Assessment and Plan - Assessment and Plan (Free Text) Assessment: A/P:Intermittent agitation. Altered mental status. DM II. HTN. Dyslipidemia. Pulmonary HTN. Sinus milagro cardia-2* betablockers/cardizem. Continue present management. Wrist/RUBEN restraint.
[2016-10-13 00:31] VITALS: BMI 36.8
[2016-10-13 06:35] LABS: ARTERIAL BLOOD GAS HCO3 17.8 mmol/L (21-28); ARTERIAL BLOOD GAS PH 7.29 (7.35-7.45)
[2016-10-13] MEDS: Propofol 10 mg/ml 1,000 MG/100 ML VIAL IV PRN ×2 (07:05→17:05)
[2016-10-13] MEDS: DOPamine 400mg/250ml D5W 400 MG/250 ML BAG IV PRN ×3 (07:08→17:03)
[2016-10-13] MEDS ORDERED: Insulin Reg-LOW-Coverage SC SCH (07:30)
--- NOTE | 2016-10-13 08:06 | CON ---
DATE: 10/12/2016 HISTORY OF PRESENT ILLNESS: The patient is a 71-year-old female who has been to [facility] several times in the past who presented with junctional bradycardic rhythm in the past secondary to cardiac medications. The patient had been counseled in the past to avoid this in the future. Despite that, the patient presents to the Emergency Room with questionable nausea, vomiting, diarrhea and junctional bradycardic rhythm along with difficulty in arousing the patient . In the Emergency Room the patient at that time was seen, difficult to arouse and emergent intubation was planned. PAST MEDICAL HISTORY: Hypertension, CAD, questionable aortic stenosis. SOCIAL HISTORY: No smoking, no alcohol, no IV drug abuse. PAST SURGICAL HISTORY: None. ALLERGIES: None. REVIEW OF SYSTEMS: Unable to obtain as the patient is difficult to arouse . LABORATORY RESULTS: wbc 5.7, hemoglobin 9.5, platelet count 76. Sodium 134, potassium 4.5, chloride 100, bicarb 23, BUN 60, creatinine 1.3, glucose 255, AST 14, ALT 20. INR 1.01. PHYSICAL EXAMINATION: VITAL SIGNS: Temp 98.6, heart rate is 41, blood pressure 111/66, respiratory rate is 18. HEENT: Pupils equal, round, reactive to light. Extraocular eye movements are intact. Dry mucous membranes. Mallampati IV. NECK: No JVD neck. LUNGS: Difficult to auscultate. Decreased breath sounds bilaterally. CARDIOVASCULAR: S1, S2 is heard, bradycardic rhythm. ABDOMEN: Is tense with decreased bowel sounds. GENITOURINARY: [place]. EXTREMITIES: Show +1 pedal edema. SKIN: Excoriation noted. NEUROLOGIC: The patient is alert and oriented x 2. ASSESSMENT AND PLAN: The patient is a 71-year-old female with unclear etiology of junctional bradycardia presumed from possible incomplete medication such as beta blockers and calcium channel blockers. The patient, at this time, is placed on a dopamine drip as per cardiology's request with pacing pads that in place. The patient will be _placed on dopamine along with pacing pads in place. The patient also had a difficult intubation for which myself and the Emergency Room physician had to accomplish, very edematous boggy vocal cords Mallampati IV, difficulty in passing the ETT through the vocal cords . Likely the patient has severe ISABELLE and has EDAC. The patient was placed on a propofol drip at this time. The patient will also get a CT chest, abdomen and pelvis noncontrast to find other etiology of the patient's nausea, vomiting, diarrhea and difficulty in breathing presumed from untreated obstructive sleep apnea. The patient at this time also had some vomiting episodes during intubation and will be placed on Rocephin, the first gram right now. The patient also had labs, cultures, blood cultures, urine cultures sent. The patient will be seen by the cardiology team to determine if need ofr pacemaker or not after the initial 24 hrs of medication wear off TOTAL CRITICAL CARE TIME: 65 minutes. Keyanna Harrington M.D. cc: [id number] TT: 10/12/2016 21:50:32 Confirmation # [id number] Dictation # [id number] [place]
--- NOTE | 2016-10-13 08:27 | HP ---
The patient came in with respiratory failure and intubated in the ER. HISTORY OF PRESENT ILLNESS: According to the son, the patient was having a problem with her high blo od pressure. She was given her medicine over 3 hours and then she was found to have low blood pressu re. Son gives her energy drink to bring the blood pressure up. The patient could not breathe. She was short of breath. There was a questionable patient is noncompliant with Lasix. Because of freque nt urination, so she missed sometimes Lasix to slow down her going to the bathroom. Blood pressure m edicine sometimes may be not taken properly; however, the patient's son denied any fever, any chills or any history of being sick in the last couple of days. All this happened the same day she came in, came in, found to be bradycardic, hypotensive, was given fluid, intubated. The patient does have a history of bradycardia and hypertrophic subaortic stenosis. She is currently followed by outpatient, Dr. Saul De León, which she has been on this medication for the last 6 months with no problems. T he patient admitted to ICU. The patient has history of cardiac cath x 2 which was negative. She has no coronary artery disease. She also had in the past colonoscopy which was negative. PAST MEDICAL HISTORY: As I mentioned, hypertrophic subaortic stenosis, paroxysmal bradycardia, histo ry of supraventricular tachycardia being on beta luis for subaortic stenosis and prevention of tac hycardia. The patient is well known to Dr. Mar. The patient also had a history of hypertension, ob esity, chronic osteoarthritis, chronic back pain, possible obstructive sleep apnea. ALLERGIES: No known allergy. SOCIAL HISTORY: The patient never smoked. No drinking. She lives with her son who is assisting her with medications and according his son also, the patient's saturation go 85% while she is sitting wi th the pulse oximetry he has at home which raised the question etiology of this or possible fluid ove rload chronically. MEDICATIONS AT HOME: Amlodipine 10 mg p.o. daily, metoprolol 25 p.o. daily, Victoza, Lasix 20 p.o. d aily, Lipitor 40 mg p.o. at bedtime and she is getting Janumet one tablet b.i.d., VESIcare 5 mg p.o. daily, potassium 20 once a day, Cozaar 100 mg p.o. daily. Lipase, amylase, protease 1 tablet q.i.d. 24,000 units capsule. Neurontin 300 mg p.o. daily, then another dose of Lasix 40 mg p.o. rodrick ly, Pepcid 20 mg b.i.d., Prozac 10 mg p.o. daily, vitamin B12 once a day and Fioricet p.r.n. PHYSICAL EXAMINATION: GENERAL: The patient is intubated in ICU, heavily sedated, no response. VITAL SIGNS: Temperature is afebrile, her heart rate is in the 50s, 50-55 and goes up to the 60s, 65 , blood pressure 115/80, respirations 20, and saturation 100% on mechanical ventilation. The patient initially blood pressure was lower than that and she got fluid. HEAD AND NECK: No JVD. CHEST: Has very diminished breath sounds, but clear. CARDIAC: First sound, second sound normal. Systolic murmur, aortic area. ABDOMEN: Obese, nontender. EXTREMITIES: Mild edema both the ankles bilaterally. NEUROLOGIC: She is heavily sedated and does not move extremities. LABORATORY DATA: White count 5.7, hemoglobin is 9.5, hematocrit 29.2, platelets 276. Chemistry: So dium 134, potassium 4.5, chloride 100, bicarb 23, BUN 50, creatinine 1.3, blood sugar 255, calcium 8. 8, phosphorus 4.7. AST and ALT and roland phos are normal. Her ProBNP is elevated 838. Also, the pat ient has TSH 3.20 and potassium 4.1. The patient also had ABGs which shows pO2 247, ofdiyw08.8, pH i s 7.29. The patient also blood sugar was elevated. Her PT/INR is normal 10.9, PT/INR 1.01, PTT 30.5 . The patient also had a urinalysis which was normal. Small leukocyte esterase, otherwise white john ls 1-3, red cells 0-2 which is normal. Also, patient had some CAT scan and x-rays done and CT abdome n and chest and pelvis was done without intravenous contrast and shows lungs, there is scarring in th e lung apex. There is unilateral pleural thickening of the right apex. There is symmetrical pleural thickening in the posterior hemithoraces bilaterally with asymmetrical ground-glass opacity on the r ight greater than the left. There is atelectasis and scarring in the right middle lobe. There is mi nimal atelectasis and scarring in the lingula. There is airspace disease at both lung bases with par tial opacification of both lower lobes. These are air bronchograms which could be pneumonia related. Otherwise, no acute abdominal findings except for the lung findings, no free air in the abdomen. Chest x-ray was not read yet. IMPRESSION AND PLAN: Based on the information I have with the bradycardia, hypotension, bilateral pl eural air bronchograms in the lung bases, possibly pneumonia. 1. Acute respiratory failure, symptomatic bradycardia and hypotension. The patient intubated. We w ill keep the patient in ICU. We will cover her with IV antibiotic, Rocephin and doxycycline, for pos sible community-acquired pneumonia. We will get a pulmonary consult, Dr. Lopez, infectious disease consult, Dr. Leyva, industrial electrical technician to manage the patient in ICU and monitor her vitals and blood pr essure. Currently, patient getting dobutamine started in the Emergency Room. She got a shot of Roce phin initially. Culture has been obtained and Dr. Mar ordered some labs in the morning already. Th e patient seems stable on ventilator, heart rate in the 60s. We will monitor her conditions. 2. Acute congestive heart failure, high BNP, history of bradycardia and heart failure. Continue obs ervation for now. We are going to hold off on any Lasix because of low blood pressure and we will mo nitor the case with the merchandising specialist. 3. Diabetes type 2. Currently, we will put the patient only on insulin coverage. She is not eating . We hold off on any other medications. 3. Continue current medications. We will give gastrointestinal and deep venous thrombosis prophylax is. Follow up clinically. Case has been discussed with the 2 sons in detail and we will continue fo [id number]. Time spent almost 45 minutes to 1 hour in ICU. Osmar Ponce MD cc: [phone] TT: 10/13/2016 08:26:43 tn
--- NOTE | 2016-10-13 08:29 | RAD ---
HISTORY: post intubation COMPARISON: 10/12/2016 FINDINGS: LUNGS: No active pulmonary disease. PLEURA: No significant pleural effusion identified, no pneumothorax apparent. CARDIOVASCULAR: Mild cardiomegaly moderate vascular congestion. The endotracheal tube is in satisfactory position OSSEOUS STRUCTURES: No significant abnormalities. VISUALIZED UPPER ABDOMEN: Normal. OTHER FINDINGS: None. IMPRESSION: Endotracheal tube in satisfactory position
[2016-10-13 08:31] LABS: ADD MANUAL DIFF? NO
[2016-10-13 08:38] LABS: BASO # 0.02 K/mm3 (0.0-2.0); BASO % 0.2 % (0.0-3.0); EOS % 0.3 % (1.5-5.0); GRAN % 79.7 % (50.0-68.0); HEMATOCRIT 28.8 % (36.0-48.0); LYMPH # 1.1 (1.2-3.4); LYMPH % 10.9 % (22.0-35.0); MEAN CORPUSCULAR HEMOGLOBIN 27.4 pg (25.0-35.0); MEAN CORPUSCULAR HGB CONC 32.3 g/dl (31.0-37.0); MEAN PLATELET VOLUME 10.7 fl (7.0-11.0); MONO # 0.9 (0.1-0.6); MONO % 8.9 % (1.0-6.0); PLATELET COUNT 273 10^3/uL (120.0-450.0); RED CELL DISTRIBUTION WIDTH 14.2 % (11.5-14.5); WHITE BLOOD COUNT 9.7 10^3/ul (4.5-11.0)
--- NOTE | 2016-10-13 08:44 | RAD ---
HISTORY: cough COMPARISON: 06/01/2016 FINDINGS: LUNGS: Mild congestive changes are seen especially in the right hilar region. PLEURA: No significant pleural effusion identified, no pneumothorax apparent. CARDIOVASCULAR: Mild to moderate cardiomegaly. OSSEOUS STRUCTURES: No significant abnormalities. VISUALIZED UPPER ABDOMEN: Normal. OTHER FINDINGS: None. IMPRESSION: Mild congestive changes in the right hilum. CHF versus bronchitis
[2016-10-13 08:47] LABS: ALB/GLOB RATIO 0.9 (1.1-1.8); BILIRUBIN,TOTAL 0.5 mg/dL (0.2-1.3); CALCIUM 7.7 mg/dL (8.4-10.5); MAGNESIUM 1.8 mg/dL (1.7-2.2); PHOSPHOROUS 4.6 mg/dL (2.5-4.5); POTASSIUM 4.3 mmol/L (3.6-5.0); TOTAL PROTEIN 6.4 g/dL (5.8-8.3)
--- NOTE | 2016-10-13 08:50 | RAD ---
HISTORY: intubated, f/u COMPARISON: 10/12/2016 FINDINGS: LUNGS: Endotracheal tube in satisfactory position. Vascular congestion and bilateral perihilar infiltrates PLEURA: No significant pleural effusion identified, no pneumothorax apparent. CARDIOVASCULAR: Mild cardiomegaly OSSEOUS STRUCTURES: No significant abnormalities. VISUALIZED UPPER ABDOMEN: Normal. OTHER FINDINGS: None. IMPRESSION: Vascular congestion and bilateral perihilar infiltrates. Endotracheal tube in satisfactory position
[2016-10-13 08:57] LABS: TROPONIN I 0.03 ng/mL
[2016-10-13] MEDS ORDERED: Sodium Chloride 0.9% 2,000 ML IV STA (09:59)
[2016-10-13] MEDS ORDERED: cefTRIAXone 1 gm 1 GM/100 ML BAG IVPB SCH (10:00)
--- NOTE | 2016-10-13 10:10 | CP.PCM.CON ---
History of Present Illness - History of Present Illness History of Present Illness: 71 year old female with PMH of DM, HTN, obesity with BMI 37, dyslipidemia, pulmonary HTN, history of junctional bradycardic arrhythmia (previously medication-induced), vulvar cancer was brought in by family because of lethargy , and low heart rate, associated with abdominal discomfort. There was also noted of loose bowel movement for about a week. There was no note of vomiting, no loss of consciousness, no convulsions, no falls. As per family, she has not been on antibiotics in the past 3 months and her last hospitalization was in May 2016. In the ED, she was noted to be lethargic and decision was made to intubate her to protect her airway. CT scan was also done which showed bilateral lower lobe pneumonia. Infectious diseases consult is requested to further evaluate and manage. Review of Systems - Review of Systems Systems not reviewed;Unavailable: Intubated Past Patient History - Infectious Disease Hx of Infectious Diseases: None - Tetanus Immunizations Tetanus Immunization: Unknown - Past Medical History & Family History Past Medical History?: Yes - Past Social History Smoking Status: Never Smoked - CARDIAC Hx Cardiac Disorders: Yes Hx Hypercholesterolemia: Yes Hx Hypertension: Yes - PULMONARY Hx Respiratory Disorders: Yes Hx Chronic Obstructive Pulmonary Disease (COPD): Yes Other/Comment: pulmonary hypertension - NEUROLOGICAL Hx Neurological Disorder: Yes (syncope) Hx Dizziness: Yes - HEENT Hx HEENT Problems: Yes Hx Cataracts: (denies) Other/Comment: according to family pt had b/l eye sx but not for cataracts, unknown what the sx was for - RENAL Hx Chronic Kidney Disease: Yes Hx Renal Failure: (renal insufficiency) - ENDOCRINE/METABOLIC Hx Endocrine Disorders: Yes Hx Diabetes Mellitus Type 2: Yes - HEMATOLOGICAL/ONCOLOGICAL Hx Blood Disorders: Yes Hx Anemia: Yes - INTEGUMENTARY Hx Dermatological Problems: No - MUSCULOSKELETAL/RHEUMATOLOGICAL Hx Musculoskeletal Disorders: Yes Hx Arthritis: Yes Hx Falls: No - GASTROINTESTINAL Hx Gastrointestinal Disorders: Yes Hx Gastroesophageal Reflux: Yes - GENITOURINARY/GYNECOLOGICAL Hx Genitourinary Disorders: No - PSYCHIATRIC Hx Psychophysiologic Disorder: No Hx Substance Use: No - SURGICAL HISTORY Hx Cardiac Catheterization: Yes Other/Comment: malignant neoplasm of 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 - ANESTHESIA Hx Anesthesia: Yes Hx Anesthesia Reactions: No Hx Malignant Hyperthermia: No Meds Allergies/Adverse Reactions: Allergies Allergy/AdvReac Type Severity Reaction Status Date / Time No Known Allergies Allergy Verified 10/12/16 16:10 - Medications Medications: Current Medications Enoxaparin Sodium (Lovenox) 40 mg SC DAILY SONYA PRN Reason: Protocol Stop: 10/18/16 07:00 Dopamine HCl/Dextrose (Dopamine 400mg/250ml D5w) 400 mg in 250 mls @ 9.777 mls/ hr IV .Q24H PRN; Protocol; 2.5 MCG/KG/MIN PRN Reason: TITRATE PER MD ORDER Last Admin: 10/13/16 07:08 Dose: 12.78 mcg/kg/min, 50 mls/hr Propofol (Diprivan) 1,000 mg in 100 mls @ 3.13 mls/hr IV .Q24H PRN; Protocol; 5 MCG/KG/MIN PRN Reason: TITRATE PER MD ORDER Last Admin: 10/13/16 07:05 Dose: 19.17 mcg/kg/min, 12 mls/hr Doxycycline Hyclate 100 mg/ (Sodium Chloride) 100 mls @ 100 mls/hr IVPB Q12 SONYA PRN Reason: Protocol Last Admin: 10/12/16 23:30 Dose: 100 mls/hr Ceftriaxone Sodium (Rocephin 1 Gram Ivpb) 1 gm in 100 mls @ 100 mls/hr IVPB DAILY SONYA PRN Reason: Protocol Insulin Human Regular (Humulin R Low) 0 units SC ACHS SONYA PRN Reason: Protocol Pantoprazole Sodium (Protonix Inj) 40 mg IVP DAILY [facility] Physical Exam - Constitutional Appears: Other (Intubated and sedated) - Head Exam Head Exam: NORMAL INSPECTION - ENT Exam Additional comments: ET tube in place - Neck Exam Neck exam: Negative for: Lymphadenopathy, Meningismus - Respiratory Exam Respiratory Exam: Decreased Breath Sounds, Rales (at the bases bilaterally) - Cardiovascular Exam Cardiovascular Exam: +S1, +S2 - GI/Abdominal Exam GI & Abdominal Exam: Soft. absent: Tenderness Results - Vital Signs Recent Vital Signs: Last Vital Signs Temp 97.8 F 10/13/16 04:00 Pulse 54 L 10/13/16 06:00 Resp 16 10/13/16 06:00 BP 118/50 L 10/13/16 06:00 Pulse Ox 100 10/13/16 06:00 - Labs Result Diagrams: 10/13/16 08:10 10/13/16 08:10 Labs: Laboratory Results - last 24 hr 10/13/16 06:15 pCO2 37 pO2 247.0 H HCO3 17.8 L ABG pH 7.29 L ABG Total CO2 18.9 L ABG O2 Saturation 98.5 H ABG Base Excess -8.1 L ABG Potassium 4.1 Sodium 132.0 Chloride 108.0 H Glucose 419 H* Lactate 1.1 FiO2 100.0 Arterial Blood Potassium 4.1 Assessment & Plan - Assessment and Plan (Free Text) Plan: Assessment Consider severe sepsis with ventilator-dependent respiratory failure and acute renal failure probably secondary to bilateral lower lobe community-acquired pneumonia in a patient presenting with bradycardia DM HTN obesity with BMI 37 dyslipidemia pulmonary HTN history of junctional bradycardic arrhythmia (previously medication-induced) vulvar cancer Plan Patient has been started on Rocephin and Doxycycline - will change Rocephin to Cefepime since she has severe illness warranting closer ICU observation and will follow up sputum cx, blood cx Follow up plan of Cardiology for the bradycardia; follow up Lyme tests will follow clinically
[2016-10-13] MEDS: Enoxaparin 40 mg Syringe SC SCH (10:15)
[2016-10-13] MEDS: MethylPREDNISolone 40 mg Vial IVP SCH ×2 (10:15→22:10)
[2016-10-13] MEDS: Cefepime IV 2 gm in NS 2 GM/100 ML BAG IVPB SCH ×2 (11:15→21:30)
--- NOTE | 2016-10-13 11:21 | CP.CCUPN ---
<Chavo Sandhu - Last Filed: 10/13/16 13:05> CCU Subjective - Physician Review Subjective (Free Text): 10/13/16 11:17 Patient seen and examined at bedside in the ICU. Today is hospital day 2. Overnight, while in transit to ICU, patient's dopamine was briefly discontinued , and the HR decreased to 37, then to 33. It was improved with a dose of Atropine and resumption of the dopamine, was was increased overnight to 15mcg/kg /min. She was also found to have increased blood sugars, > 350 on AM labs and blood gas, and worsened metabolic acidosis, concerning for possible DKA. She became agitated overnight, requiring increasing the propofol drip to maintain sedation and protect against accidental self-extubation. Today, patient is minimally responsive to pain, but otherwise remains sedated and intubated, so ROS/PE limited. Patient has poor venous access, and has lost one of her two IVs (infiltrated), so she will likely need a central line or a PICC line for reliable access. CCU Objective - Vital Signs / Intake & Output Intake and Output (Last 8hrs): Intake & Output 10/12/16 10/13/16 10/13/16 22:59 06:59 14:59 Intake Total 1550 250 Output Total 200 Balance 1350 250 Weight 94.347 kg Intake: IV 1550 250 Left Antecubital 200 Right Hand 1000 Output: Urine 200 Urethral ([place]) 200 Other: Voiding Method Indwelling Catheter Indwelling Catheter - Physical Exam Head: Positive for: Atraumatic, Normocephalic. Negative for: Abrasion, Laceration Pupils: Positive for: PERRL. Negative for: Non-Reactive, Pinpoint Extroacular Muscles: Positive for: Other (not following commands to assess EOMI , some movement away from direct light challenge for PERRL assessment, some random eye movements when aroused by physical/painful stimuli (i.e. ABG draw)). Negative for: EOMI Conjunctiva: Positive for: Normal. Negative for: Injected, Icteric Mouth: Positive for: Moist Mucous Membranes, Other (ETT in place) Nose (External): Positive for: Atraumatic, Other (NGT in place). Negative for: Abrasion, Contusion, Laceration Neck: Positive for: Trachea Midline. Negative for: JVD Respiratory/Chest: Positive for: Good Air Exchange, Rhonchi (most prominent at bases, R>L, mild). Negative for: Clear to Auscultation, Respiratory Distress, Accessory Muscle Use Cardiovascular: Positive for: Normal S1, S2, Bradycardic (bradycardic on exam, 50-55 on bedside monitor throughout exam). Negative for: Regular Rate and Rhythm Abdomen: Negative for: Distention (firm, but not distended), Normal Bowel Sounds (reduced bowel sounds), Ostomy Tubes, Mass/Organomegaly Upper Extremity: Positive for: Swelling (swollen, but non-pitting edema in bilateral UE), Other (intermittent movement to painful stimuli (i.e. ABG draw), otherwise holding extremities flaccidly). Negative for: Normal Inspection, Cyanosis, Edema, NORMAL PULSES (difficult to palpate through swelling, +1 radials bilaterally), Deformity Lower Extremity: Positive for: Edema (+1-2 pitting edema B/L). Negative for: Normal Inspection, Cyanosis, Erythema, Deformity Neurological: Negative for: GCS=15 (E2V(T)M4), Speech Normal (intubated and sedated), Motor Func Grossly Intact Skin: Positive for: Warm, Dry, Normal Color. Negative for: Rashes Psychiatric: Negative for: Alert, Oriented x 3, Normal Insight, Normal Concentration Other physical findings (Free Text): intubated and sedation, intermittently responsive to noxious pain stimuli, otherwise unresponsive - Medications Active Medications: Active Medications Generic Name Dose Route Start Last Admin Trade Name Freq PRN Reason Stop Dose Admin Albuterol Sulfate 1.25 mg 10/13/16 11:30 Albuterol 0.042% Inhal Radha (1.25mg/3ml) Ud IH [id number] SONYA Enoxaparin Sodium 40 mg 10/13/16 10:00 10/13/16 10:15 Lovenox SC 10/18/16 07:00 40 mg DAILY SONYA Administration Protocol Dopamine HCl/Dextrose 400 mg in 250 mls @ 9.777 mls/hr 10/12/16 17:20 10:58 Dopamine 400mg/250ml D5w IV 12.78 mcg/kg/min .Q24H PRN 49.995 mls/hr TITRATE PER MD ORDER Administration Protocol 2.5 MCG/KG/MIN Propofol 1,000 mg in 100 mls @ 3.13 mls/hr 10/12/16 19:08 10/13/16 07:05 Diprivan IV 19.17 mcg/kg/min .Q24H PRN 12 mls/hr TITRATE PER MD ORDER Administration Protocol 5 MCG/KG/MIN Doxycycline Hyclate 100 mg/ 100 mls @ 100 mls/hr 10/12/16 23:00 10/13/16 10: 28 Sodium Chloride IVPB 100 mls/hr Q12 SONYA Administration Protocol Sodium Chloride 2,000 mls @ 999 mls/hr 10/13/16 09:59 10/13/16 10:17 Sodium Chloride 0.9% IV 10/13/16 11:59 999 mls/hr .Q2H1M STA Administration Cefepime HCl 2 gm in 100 mls @ 100 mls/hr 10/13/16 10:15 Maxipime 2gm IVPB 10/18/16 10:16 Q12 SONYA Protocol Insulin Human Regular 0 units 10/13/16 11:30 Humulin R High SC ACHS SONYA Protocol Methylprednisolone 40 mg 10/13/16 10:00 10/13/16 10:15 Solu-Medrol IVP 40 mg Q12 SONYA Administration Pantoprazole Sodium 40 mg 10/13/16 10:00 10/13/16 10:16 Protonix Inj IVP 40 mg DAILY SONYA Administration - Patient Studies Lab Studies: Lab Studies 10/13/16 10/13/16 10/13/16 Range/Units 08:10 08:10 06:15 WBC 9.7 D (4.5-11.0) 10^3/ul RBC 3.39 L (3.5-6.1) 10^6/uL Hgb 9.3 L (12.0-16.0) gm/dL Hct 28.8 L (36.0-48.0) % MCV 85.0 (80.0-105.0) fL MCH 27.4 (25.0-35.0) pg MCHC 32.3 (31.0-37.0) g/dl RDW 14.2 (11.5-14.5) % Plt Count 273 (120.0-450.0) 10^3/uL MPV 10.7 (7.0-11.0) fl Gran % 79.7 H (50.0-68.0) % Lymph % (Auto) 10.9 L (22.0-35.0) % [place] % (Auto) 8.9 H (1.0-6.0) % Eos % (Auto) 0.3 L (1.5-5.0) % Baso % (Auto) 0.2 (0.0-3.0) % Gran # 7.70 H (1.4-6.5) Lymph # 1.1 L (1.2-3.4) [place] # 0.9 H (0.1-0.6) Eos # 0.0 (0.0-0.7) Baso # 0.02 (0.0-2.0) K/mm3 pCO2 37 (35-45) mm/Hg pO2 247.0 H (80-100) mm/Hg HCO3 17.8 L (21-28) mmol/L ABG pH 7.29 L (7.35-7.45) ABG Total CO2 18.9 L (22-28) mmol.L ABG O2 Saturation 98.5 H (95-98) % ABG Base Excess -8.1 L (-2.0-3.0) mmol/L ABG Potassium 4.1 (3.6-5.2) mmol/L Sodium 131 L 132.0 (132-148) mmol/L Chloride 104 108.0 H (98-107) mmol/L Glucose 419 H* (65-105) mg/dl Lactate 1.1 (0.7-2.1) mmol/L FiO2 100.0 % Potassium 4.3 (3.6-5.0) mmol/L Carbon Dioxide 16 L (21-33) mmol/L Anion Gap 15 (10-20) BUN 51 H (7-21) mg/dL Creatinine 1.6 H (0.5-1.4) mg/dL Est GFR ( Amer) 38 Est GFR (Non-Af Amer) 32 Random Glucose 373 H* D (70-110) mg/dL Calcium 7.7 L (8.4-10.5) mg/dL Phosphorus 4.6 H (2.5-4.5) mg/dL Magnesium 1.8 (1.7-2.2) mg/dL Total Bilirubin 0.5 (0.2-1.3) mg/dL AST 17 (15-39) U/L ALT 42 (7-56) U/L Alkaline Phosphatase 163 H (38-133) U/L Lactate Dehydrogenase 524 (333-699) U/L Total Creatine Kinase 31 L (35-230) U/L Troponin I 0.03 D ng/mL Total Protein 6.4 (5.8-8.3) g/dL Albumin 3.0 (3.0-4.8) g/dL Globulin 3.4 gm/dL Albumin/Globulin Ratio 0.9 L (1.1-1.8) Triglycerides 109 (35-160) mg/dL Cholesterol 175 (130-200) mg/dL LDL Cholesterol Direct 95 (0-129) mg/dL HDL Cholesterol 51 (29-60) mg/dL Arterial Blood Potassium 4.1 (3.6-5.2) mmol/L Laboratory Results - last 24 hr 10/13/16 10/13/16 10/13/16 06:15 08:10 08:10 WBC 9.7 D RBC 3.39 L Hgb 9.3 L Hct 28.8 L MCV 85.0 MCH 27.4 MCHC 32.3 RDW 14.2 Plt Count 273 MPV 10.7 Gran % 79.7 H Lymph % (Auto) 10.9 L [place] % (Auto) 8.9 H Eos % (Auto) 0.3 L Baso % (Auto) 0.2 Gran # 7.70 H Lymph # 1.1 L [place] # 0.9 H Eos # 0.0 Baso # 0.02 pCO2 37 pO2 247.0 H HCO3 17.8 L ABG pH 7.29 L ABG Total CO2 18.9 L ABG O2 Saturation 98.5 H ABG Base Excess -8.1 L ABG Potassium 4.1 Sodium 132.0 131 L Chloride 108.0 H 104 Glucose 419 H* Lactate 1.1 FiO2 100.0 Potassium 4.3 Carbon Dioxide 16 L Anion Gap 15 BUN 51 H Creatinine 1.6 H Est GFR ( Amer) 38 Est GFR (Non-Af Amer) 32 Random Glucose 373 H* D Calcium 7.7 L Phosphorus 4.6 H Magnesium 1.8 Total Bilirubin 0.5 AST 17 ALT 42 Alkaline Phosphatase 163 H Lactate Dehydrogenase 524 Total Creatine Kinase 31 L Troponin I 0.03 D Total Protein 6.4 Albumin 3.0 Globulin 3.4 Albumin/Globulin Ratio 0.9 L Triglycerides 109 Cholesterol 175 LDL Cholesterol Direct 95 HDL Cholesterol 51 Arterial Blood Potassium 4.1 EKG/Cardiology Studies: Cardiology / EKG Studies 10/12/16 16:09 EKG [ELECTROCARDIOGRAM] Stat Comment: Reason For Exam: HYPOTENSION 10/13/16 07:00 ELECTROCARDIOGRAM Routine Comment: Reason For Exam: CAD PRE OP:: N Does Patient Have a Pacemaker?: No Fingerstick Blood Sugar Results: 496 Review of Systems - Review of Systems Systems not reviewed;Unavailable: Intubated Assessment/Plan - Assessment and Plan (Free Text) Assessment: This is a 71 yo F with PMH notable for DM-2, HTN, dyslipidemia, subaortic stenosis, Pulm HTN, and 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 This AM, she was found to have new metabolic acidosis and elevate blood sugars concerning for possible DKA. Plan: Neuro: -intubated and sedated on propofol; attempting to wean down propofol -withdraws from pain, otherwise minimal spontaneous movement -maintain normothermia Pulm: -intubated and sedated -conservative O2 management, SaO2 > 90%, paO2 > 60 -Protective lung ventilation strategy, VAP bundle, head of bed to 30 degrees, aspiration precautions -ABG post-intubation, f/u and adjust settings based on results -Chest/Abd/Pelvis CT w/o contrast ordered, notable for bilateral airspace disease greatest at bases, lower lobe consolidation suggestive of pneumonia -Covering with Doxy and Rocephin as per ID -Difficult intubation, edematous area surrounding vocal cords, cause unclear, likely untreated/poorly managed ISABELLE; strict sedation and restraint usage as high risk of being unable to re-intubate should patient self-extubate -Solumedrol 40mg q12 for airway edema/inflammation -AM CXR notable for ETT and NGT in appropriate positions -will perform pressure support trial for exercise of lung when weaning off some sedation, no extubation today given concern for narrow/edematous airway and expected high difficulty of re-intubating Cardio -junctional bradycardia, remains 50's on 15mcg/kg/min of dopamine; HR down to 33 off of dopamine for brief interval requiring 1x Atropine -dopamine for pressor and HR support, continue to monitor; patient may need central line and central pressor support, pending consent from family -poor venous access, IR consulted for PICC placement -Pacer pads placed, set to pace if HR drops below 40 -Cardio (Dr. Mar) on board, appreciate all recs; continue to monitor HR, continue dopamine, hold all beta-blockers -Echo in 05/30/16 notable for LVEF 66%, asymmetrical LVH, proximal septal thickening with IHSS pathology, trace AR, mild , moderate MR, mild-mod TR, IVC dilation (please see full reports for further details); repeat Echo ordered -AM EKG notable for junction bradycardia to 42 GI: -abd fullness, family reports 1 week of diarrhea, abd pain -CT chest/abd/pelvis, negative for acute abdominal or pelvic process, no diverticulitis or appendicitis -NPO -Protonix for GI ppx Renal: -de [place]ant[place] -strict I's&O's, daily weights -monitor Cr -monitor and replete electrolytes; Mg/K/Ca wnl, elevated phos today, continue to monitor -avoid nephrotoxic drugs where feasible -maintain euglycemia -poor urine output overnight, ~200 cc, ordering 2L NS bolus and continue to monitor Heme: -Hgb 9.3, per prior charting, at baseline -coags wnl on admission -continue to monitor -Lovenox for DVT ppx ID: -WBCs 9.7 (was 5.7), afebrile -Rocephin and Doxy for empiric coverage as per ID -Blood cultures negative at 24 hours, continue to monitor -Urine culture positive for G(-) rods, covered on currently abx regime -Continue to monitor Dispo: ICU, intubated and sedated, attempting to wean sedation FEN: NPO Access: Peripheral IV, ETT Consults: Cardio Ppx: Protonix for GI, Lovenox for DVT Patient seen, reviewed, and discussed with attending, Dr. Harrington. - Date & Time Date: 10/13/16 Time: 13:40 <Juany HU,Inamul H - Last Filed: 10/13/16 14:06> CCU Objective - Vital Signs / Intake & Output Vital Signs (Last 4 hours): Vital Signs Pulse BP Pulse Ox 10/13/16 12:00 62 142/45 L 97 10/13/16 11:50 57 L 97 10/13/16 11:40 57 L 97 10/13/16 11:30 57 L 96 10/13/16 11:20 57 L 97 10/13/16 11:10 59 L 99 10/13/16 11:00 55 L 119/44 L 98 10/13/16 10:50 47 L 99 10/13/16 10:40 56 L 99 10/13/16 10:30 55 L 98 10/13/16 10:20 55 L 98 10/13/16 10:10 67 98 Intake and Output (Last 8hrs): Intake & Output 10/12/16 10/13/16 10/13/16 22:59 06:59 14:59 Intake Total 1550 250 Output Total 200 Balance 1350 250 Weight 208 lb Intake: IV 1550 250 Left Antecubital 200 Right Hand 1000 Output: Urine 200 Urethral ([place]) 200 Other: Voiding Method Indwelling Catheter Indwelling Catheter - Medications Active Medications: Active Medications Generic Name Dose Route Start Last Admin Trade Name Freq PRN Reason Stop Dose Admin Albuterol Sulfate 1.25 mg 10/13/16 11:36 Albuterol 0.083% Inhal Radha (2.5 Mg/3 Ml) Ud IH [id number] SONYA Enoxaparin Sodium 40 mg 10/13/16 10:00 10/13/16 10:15 Lovenox SC 10/18/16 07:00 40 mg DAILY SONYA Administration Protocol Dopamine HCl/Dextrose 400 mg in 250 mls @ 9.777 mls/hr 10/12/16 17:20 10:58 Dopamine 400mg/250ml D5w IV 12.78 mcg/kg/min .Q24H PRN 49.995 mls/hr TITRATE PER MD ORDER Administration Protocol 2.5 MCG/KG/MIN Propofol 1,000 mg in 100 mls @ 3.13 mls/hr 10/12/16 19:08 10/13/16 07:05 Diprivan IV 19.17 mcg/kg/min .Q24H PRN 12 mls/hr TITRATE PER MD ORDER Administration Protocol 5 MCG/KG/MIN Doxycycline Hyclate 100 mg/ 100 mls @ 100 mls/hr 10/12/16 23:00 10/13/16 10: 28 Sodium Chloride IVPB 100 mls/hr Q12 SONYA Administration Protocol Cefepime HCl 2 gm in 100 mls @ 100 mls/hr 10/13/16 10:15 10/13/16 11:15 Maxipime 2gm IVPB 10/18/16 10:16 100 mls/hr Q12 SONYA Administration Protocol Insulin Detemir 10 unit 10/13/16 18:00 Levemir SC BID SONYA Insulin Human Regular 0 units 10/13/16 11:30 10/13/16 12:01 Humulin R High SC 12 units ACHS SONYA Administration Protocol Methylprednisolone 40 mg 10/13/16 10:00 10/13/16 10:15 Solu-Medrol IVP 40 mg Q12 SONYA Administration Pantoprazole Sodium 40 mg 10/13/16 10:00 10/13/16 10:16 Protonix Inj IVP 40 mg DAILY SONYA Administration - Patient Studies Lab Studies: Lab Studies 10/13/16 10/13/16 10/13/16 Range/Units 08:10 08:10 06:15 WBC 9.7 D (4.5-11.0) 10^3/ul RBC 3.39 L (3.5-6.1) 10^6/uL Hgb 9.3 L (12.0-16.0) gm/dL Hct 28.8 L (36.0-48.0) % MCV 85.0 (80.0-105.0) fL MCH 27.4 (25.0-35.0) pg MCHC 32.3 (31.0-37.0) g/dl RDW 14.2 (11.5-14.5) % Plt Count 273 (120.0-450.0) 10^3/uL MPV 10.7 (7.0-11.0) fl Gran % 79.7 H (50.0-68.0) % Lymph % (Auto) 10.9 L (22.0-35.0) % [place] % (Auto) 8.9 H (1.0-6.0) % Eos % (Auto) 0.3 L (1.5-5.0) % Baso % (Auto) 0.2 (0.0-3.0) % Gran # 7.70 H (1.4-6.5) Lymph # 1.1 L (1.2-3.4) [place] # 0.9 H (0.1-0.6) Eos # 0.0 (0.0-0.7) Baso # 0.02 (0.0-2.0) K/mm3 pCO2 37 (35-45) mm/Hg pO2 247.0 H (80-100) mm/Hg HCO3 17.8 L (21-28) mmol/L ABG pH 7.29 L (7.35-7.45) ABG Total CO2 18.9 L (22-28) mmol.L ABG O2 Saturation 98.5 H (95-98) % ABG Base Excess -8.1 L (-2.0-3.0) mmol/L ABG Potassium 4.1 (3.6-5.2) mmol/L Sodium 131 L 132.0 (132-148) mmol/L Chloride 104 108.0 H (98-107) mmol/L Glucose 419 H* (65-105) mg/dl Lactate 1.1 (0.7-2.1) mmol/L FiO2 100.0 % Potassium 4.3 (3.6-5.0) mmol/L Carbon Dioxide 16 L (21-33) mmol/L Anion Gap 15 (10-20) BUN 51 H (7-21) mg/dL Creatinine 1.6 H (0.5-1.4) mg/dL Est GFR ( Amer) 38 Est GFR (Non-Af Amer) 32 Random Glucose 373 H* D (70-110) mg/dL Hemoglobin A1c (4.2-6.5) % Calcium 7.7 L (8.4-10.5) mg/dL Phosphorus 4.6 H (2.5-4.5) mg/dL Magnesium 1.8 (1.7-2.2) mg/dL Total Bilirubin 0.5 (0.2-1.3) mg/dL AST 17 (15-39) U/L ALT 42 (7-56) U/L Alkaline Phosphatase 163 H (38-133) U/L Lactate Dehydrogenase 524 (333-699) U/L Total Creatine Kinase 31 L (35-230) U/L Troponin I 0.03 D ng/mL Total Protein 6.4 (5.8-8.3) g/dL Albumin 3.0 (3.0-4.8) g/dL Globulin 3.4 gm/dL Albumin/Globulin Ratio 0.9 L (1.1-1.8) Triglycerides 109 (35-160) mg/dL Cholesterol 175 (130-200) mg/dL LDL Cholesterol Direct 95 (0-129) mg/dL HDL Cholesterol 51 (29-60) mg/dL Arterial Blood Potassium 4.1 (3.6-5.2) mmol/L 10/13/16 Range/Units 06:00 WBC (4.5-11.0) 10^3/ul RBC (3.5-6.1) 10^6/uL Hgb (12.0-16.0) gm/dL Hct (36.0-48.0) % MCV (80.0-105.0) fL MCH (25.0-35.0) pg MCHC (31.0-37.0) g/dl RDW (11.5-14.5) % Plt Count (120.0-450.0) 10^3/uL MPV (7.0-11.0) fl Gran % (50.0-68.0) % Lymph % (Auto) (22.0-35.0) % [place] % (Auto) (1.0-6.0) % Eos % (Auto) (1.5-5.0) % Baso % (Auto) (0.0-3.0) % Gran # (1.4-6.5) Lymph # (1.2-3.4) [place] # (0.1-0.6) Eos # (0.0-0.7) Baso # (0.0-2.0) K/mm3 pCO2 (35-45) mm/Hg pO2 (80-100) mm/Hg HCO3 (21-28) mmol/L ABG pH (7.35-7.45) ABG Total CO2 (22-28) mmol.L ABG O2 Saturation (95-98) % ABG Base Excess (-2.0-3.0) mmol/L ABG Potassium (3.6-5.2) mmol/L Sodium (132-148) mmol/L Chloride (98-107) mmol/L Glucose (65-105) mg/dl Lactate (0.7-2.1) mmol/L FiO2 % Potassium (3.6-5.0) mmol/L Carbon Dioxide (21-33) mmol/L Anion Gap (10-20) BUN (7-21) mg/dL Creatinine (0.5-1.4) mg/dL Est GFR ( Amer) Est GFR (Non-Af Amer) Random Glucose (70-110) mg/dL Hemoglobin A1c 7.9 H (4.2-6.5) % Calcium (8.4-10.5) mg/dL Phosphorus (2.5-4.5) mg/dL Magnesium (1.7-2.2) mg/dL Total Bilirubin (0.2-1.3) mg/dL AST (15-39) U/L ALT (7-56) U/L Alkaline Phosphatase (38-133) U/L Lactate Dehydrogenase (333-699) U/L Total Creatine Kinase (35-230) U/L Troponin I ng/mL Total Protein (5.8-8.3) g/dL Albumin (3.0-4.8) g/dL Globulin gm/dL Albumin/Globulin Ratio (1.1-1.8) Triglycerides (35-160) mg/dL Cholesterol (130-200) mg/dL LDL Cholesterol Direct (0-129) mg/dL HDL Cholesterol (29-60) mg/dL Arterial Blood Potassium (3.6-5.2) mmol/L Laboratory Results - last 24 hr 10/13/16 10/13/16 10/13/16 06:00 06:15 08:10 WBC 9.7 D RBC 3.39 L Hgb 9.3 L Hct 28.8 L MCV 85.0 MCH 27.4 MCHC 32.3 RDW 14.2 Plt Count 273 MPV 10.7 Gran % 79.7 H Lymph % (Auto) 10.9 L [place] % (Auto) 8.9 H Eos % (Auto) 0.3 L Baso % (Auto) 0.2 Gran # 7.70 H Lymph # 1.1 L [place] # 0.9 H Eos # 0.0 Baso # 0.02 pCO2 37 pO2 247.0 H HCO3 17.8 L ABG pH 7.29 L ABG Total CO2 18.9 L ABG O2 Saturation 98.5 H ABG Base Excess -8.1 L ABG Potassium 4.1 Sodium 132.0 Chloride 108.0 H Glucose 419 H* Lactate 1.1 FiO2 100.0 Potassium Carbon Dioxide Anion Gap BUN Creatinine Est GFR ( Amer) Est GFR (Non-Af Amer) Random Glucose Hemoglobin A1c 7.9 H Calcium Phosphorus Magnesium Total Bilirubin AST ALT Alkaline Phosphatase Lactate Dehydrogenase Total Creatine Kinase Troponin I Total Protein Albumin Globulin Albumin/Globulin Ratio Triglycerides Cholesterol LDL Cholesterol Direct HDL Cholesterol Arterial Blood Potassium 4.1 10/13/16 08:10 WBC RBC Hgb Hct MCV MCH MCHC RDW Plt Count MPV Gran % Lymph % (Auto) [place] % (Auto) Eos % (Auto) Baso % (Auto) Gran # Lymph # [place] # Eos # Baso # pCO2 pO2 HCO3 ABG pH ABG Total CO2 ABG O2 Saturation ABG Base Excess ABG Potassium Sodium 131 L Chloride 104 Glucose Lactate FiO2 Potassium 4.3 Carbon Dioxide 16 L Anion Gap 15 BUN 51 H Creatinine 1.6 H Est GFR ( Amer) 38 Est GFR (Non-Af Amer) 32 Random Glucose 373 H* D Hemoglobin A1c Calcium 7.7 L Phosphorus 4.6 H Magnesium 1.8 Total Bilirubin 0.5 AST 17 ALT 42 Alkaline Phosphatase 163 H Lactate Dehydrogenase 524 Total Creatine Kinase 31 L Troponin I 0.03 D Total Protein 6.4 Albumin 3.0 Globulin 3.4 Albumin/Globulin Ratio 0.9 L Triglycerides 109 Cholesterol 175 LDL Cholesterol Direct 95 HDL Cholesterol 51 Arterial Blood Potassium EKG/Cardiology Studies: Cardiology / EKG Studies 10/12/16 16:09 EKG [ELECTROCARDIOGRAM] Stat Comment: Reason For Exam: HYPOTENSION 10/13/16 07:00 ELECTROCARDIOGRAM Routine Comment: Reason For Exam: CAD PRE OP:: N Does Patient Have a Pacemaker?: No Attending/Attestation - Attestation I have personally seen and examined this patient.: Yes I have fully participated in the care of the patient.: Yes I have reviewed all pertinent clinical information: Yes Notes (Text): 10/13/16 14:03 71 y/o F w/ Junctional Bradycardia w/ AMS requiring Intubation Bradycardia On DOPAMINE per Cardiology Awaiting metabolism of cardiac meds taken at home by the patient Plans to evaluate for PM after 24 hrs. Currernt HR 55 Resp failure Seen on Gross view and per CT chest to have aspiration Pneumonitis , on Rocephin Shallow lung volumes Mediastinal lymph nodes and Hilar fullness. Large P.A( Pulm HTN) On 50% fio2 keep pao2> 60. P.S daily VERY difficult airway . Precautions to self extubate should be taken . ECHo pending. heparin sq tid. ppi cc time 65 min
[2016-10-13] MEDS ORDERED: Albuterol 0.042% Inhal Sol (1.25 mg/3 mL) UD IH SCH (11:30)
[2016-10-13] MEDS: Insulin Reg-HIGH-Coverage SC SCH ×3 (12:01→22:09)
--- NOTE | 2016-10-13 12:19 | PN ---
DATE: 10/13/2016 REASON FOR CONSULTATION AND FOLLOWUP: Bradycardia, hypotension, respiratory failure. BRIEF CLINICAL HISTORY: This is a 71-year-old female with a past medical history significant for sam betes, hypertension, hyperlipidemia, very sensitive to beta luis and goes into junctional milagro pr evious to admission. Apparently, it looks like patient was having diarrhea for the chronic and also is taking beta luis. Came in here with, according to the son and , with up and down the bl ood pressure. Found to be junctional milagro 50, distention of abdomen, requiring intubation. The pat ient started dopamine. Heart rate is 50. At this point, does not look like hemodynamic compromise s o external pacer was placed, but did not require the external pacer. The patient has a last cardiac catheterization, revealed nonobstructive coronary artery disease, only limited to obtuse marginal 1. The previous medical record showed the patient had a cardiac catheterization in 2013 when the patien t presented with the same symptoms, heart block after the beta-luis and it was mentioned so may ti mes that patient is very sensitive to beta luis and goes into junctional milagro, but apparently the patient was taking again beta luis. Discussed with son. PHYSICAL EXAMINATION: As follows: VITAL SIGNS: Temperature afebrile, heart rate 54, blood pressure 118/50. HEENT: PERRLA, intact. NECK: Supple. No carotid bruits. No thyromegaly. CHEST: Clear to auscultation. HEART: S1, S2 regular. ABDOMEN: Soft. EXTREMITIES: Clubbing and cyanosis negative. BLOOD WORKUP: As follows: WBC ____, hemoglobin 9.3, hematocrit 28.8, platelet count 273. Chemistry shows sodium 131, potassium ____, chloride 104, carbon dioxide 16, anion gap of 15, BUN 15, creatini ne 1.6, blood sugar 373. Troponin 0.0. IMPRESSION: No evidence of acute coronary syndrome. No evidence of acute myocardial infarction. Re spiratory failure, intubated; uncontrolled diabetes, chronic diarrhea, bradycardia, very sensitive to beta luis. Multiple admissions with bradycardia after having the beta luis, requiring tempora ry venous pacemaker at one point as well as transcutaneous. This time, patient is on dopamine and st ill maintaining. RECOMMENDATION: We will continue dopamine, wait for the effect of watching the beta luis for 24-4 8 hours and then we will try to wean off the dopamine. If the patient still remains bradycardic, we will consider pacemaker. We will discuss with the family. Thank you, Dr. Ponce for providing us the opportunity in taking care of the patient. [place] MD cc:Osmar Ponce MD [id number] TT: 10/13/2016 12:18:20 Confirmation # [id number] Dictation # [id number]
--- NOTE | 2016-10-13 12:38 | RAD ---
HISTORY: assess NGT placement COMPARISON: Earlier study same day FINDINGS: LUNGS: Slight decrease in vascular congestion PLEURA: No significant pleural effusion identified, no pneumothorax apparent. CARDIOVASCULAR: Mild cardiomegaly OSSEOUS STRUCTURES: No significant abnormalities. VISUALIZED UPPER ABDOMEN: Normal. OTHER FINDINGS: None. IMPRESSION: The nasogastric tube and endotracheal tube are in satisfactory position
[2016-10-13] MEDS: Albuterol 0.083% Inhal Sol (2.5 mg/3 mL) UD IH SCH ×3 (15:50→23:08)
[2016-10-13] MEDS: Insulin Detemir 100 units/ml Vial (Levemir) SC SCH (17:11)
--- NOTE | 2016-10-13 19:31 | CARD ---
APPROVED REPORT EXAM: Two-dimensional and M-mode echocardiogram with Doppler and color Doppler. INDICATION Pulmonary Hypertention 2D DIMENSIONS Left Atrium (2D)5.2 (1.6-4.0cm)IVSd1.4 (0.7-1.1cm) LVDd3.9 (3.9-5.9cm)PWd1.5 (0.7-1.1cm) LVDs2.3 (2.5-4.0cm)FS (%) 42.2 % LVEF (%)73.9 (>50%) M-Mode DIMENSIONS Aortic Root2.80 (2.2-3.7cm)Aortic Cusp Exc.1.60 (1.5-2.0cm) Aortic Valve AoV Peak Xnpviyev274.0cm/sAoV VTI51.8cmAO Peak GR.35mmHg LVOT Peak Mfoynhhq867.0cm/sLVOT VTI47.90cmAO Mean GR.17mmHg Mitral Valve MV E Zhnufyfs552.0cm/sMV A Zsigfewz03.6cm/sMV SGR39am E/A ratio4.3MVA (PHT)3.01cm2 TDI Lateral E' Peak V6.63cm/sE/Lateral E'20.5E/Medial E'0.0 Pulmonary Valve PV Peak Gyfgcbzy71.8cm/sPV Peak Grad.4mmHg Tricuspid Valve TR Peak Cpeoldhe363nl/sRAP [id number] Peak Gr.49mmHg [id number] LEFT VENTRICLE The left ventricle cavity is small. The echo findings are not consistent with hypertrophic cardiomyopathy. The left ventricular function is normal. The left ventricular ejection fraction is within the normal range. There is normal LV segmental wall motion. Tissue Doppler imaging reveals mild left ventricular diastolic dysfunction. RIGHT VENTRICLE The right ventricle is normal size. There is normal right ventricular wall thickness. The right ventricular systolic function is normal. ATRIA The left atrium is moderately dilated. The right atrium is moderately dilated. AORTIC VALVE The aortic valve is mildly sclerotic. There is mild subvalvular aortic stenosis. MITRAL VALVE Mitral regurgitation is mild to moderate. TRICUSPID VALVE There is moderate tricuspid regurgitation. There is moderate pulmonary hypertension. GREAT VESSELS The aortic root is normal in size. The IVC is normal in size and collapses >50% with inspiration. PERICARDIAL EFFUSION There is a trace loculated anterior pericardial effusion. <Conclusion> The left ventricle cavity is small. The echo findings are not consistent with hypertrophic cardiomyopathy. The left ventricular function is normal. The left ventricular ejection fraction is within the normal range. There is normal LV segmental wall motion. There is mild subvalvular aortic stenosis. Mitral regurgitation is mild to moderate. There is moderate tricuspid regurgitation. There is moderate pulmonary hypertension.
--- NOTE | 2016-10-13 19:48 | CON ---
DATE: 10/13/2016 REFERRING PHYSICIAN: Dr. Ponce. REASON FOR CONSULT: Respiratory failure, on ventilator, history of sleep apnea syndrome, cardiomyopa thy, coronary artery disease. HISTORY OF PRESENT ILLNESS: This is a 71-year-old female with multiple medical issues including hype rtrophic cardiomyopathy, subaortic stenosis, hypertension, obstructive sleep apnea syndrome, obesity, chronic back pain, noncompliant with the medication and followup. She is supposed to be on BiPAP, a pparently been not using at home. Brought into Emergency Room, ended up on ventilator. Presently on Diprivan . No hemoptysis, no hematemesis, no hematuria, no diarrhea reported. PAST MEDICAL HISTORY: Obstructive sleep apnea syndrome, chronic lung disease, cardiomyopathy with gr baortic stenosis, obesity, hypertension. ALLERGIES: None known. SOCIAL HISTORY: She does not smoke and there is no history of alcohol abuse. Lives with family. FAMILY HISTORY: No significant cardiopulmonary disease reported. MEDICATIONS: She is on albuterol-Atrovent nebulizer q. 4 hours, Diprivan IV, also getting dopamine, doxycycline 100 mg twice a day, Levemir 10 units subQ twice a day, Lovenox 40 mg daily, cefepime 2 gr ams IV q. 12 hours, Protonix 40 mg daily, Solu-Medrol 40 mg q. 12 hours. REVIEW OF SYSTEMS: Apparently has been coughing and short of breath, presently intubated and E T tube secretion. No fever, no hemoptysis, no hematemesis, no hematuria, no diarrhea. Does have tra ce leg swelling. PHYSICAL EXAMINATION: GENERAL: Sleepy and sedated, arousable. VITAL SIGNS: Afebrile. Heart rate is 60, respiratory rate is 20, blood pressure 94/34, pulse ox 96% on ventilator. HEENT: Moist mucous membranes. ET tube secretion. NECK: Short, thick neck. LUNGS: Has a few crackles at the bases, scattered rhonchi. HEART: S1, S2. ABDOMEN: Soft, nontender. No organomegaly. EXTREMITIES: Has trace edema. NEUROLOGIC: Sleepy, arousable. LABORATORY DATA: Shows hemoglobin 9.3, hematocrit 28.8, WBC 9.7, platelet is 273. INR 1.01, PTT 31. Blood gases show pH 7.29, pCO2 of 37, O2 47, that is 100% oxygen on ventilator. Sodium 131, potass ium 4.3, chloride 104, bicarbonate is 16, BUN 51, creatinine 1.6, glucose 373, calcium 7.7, phosphoru s 4.6, magnesium 1.8, AST 17, ALT 12, alk phos is 163. LDH is 524, total protein 6.4, albumin 3.0, g lobulin is 3.4. Cholesterol is 175. Procalcitonin is 5.52. MICROBIOLOGY: Urine culture: Gram-negative. Blood culture: There is no growth. Chest x-ray shows nasogastric tube in satisfactory position. There is a pulmonary infiltrate. IMPRESSION AND PLAN: Cardiomyopathy, mostly diastolic dysfunction, severe pulmonary hypertension, di abetes, hypertension, morbid obesity, sleep apnea syndrome, lumbar radiculopathy, noncompliant with C PAP and also noncompliant with the medication. I agree with Dr. Ponce with the present management. Keep on ventilator for now. Wean off dopamine, bronchodilators and diuretics. High procalcitonin. I agree with antibiotics. Gastric and DVT prophylaxis. Follow up ABG, chest x-ray, CBC, CMP in the morning. Thank you and will follow with you. Belle Lopez MD cc: [id number] TT: 10/13/2016 19:48:18 Confirmation # [id number] Dictation # [id number]
--- NOTE | 2016-10-13 21:19 | CARD ---
APPROVED REPORT EKG Measurement Heart [id number] <Conclusion> Junctional rhythm Low voltage QRS Abnormal ECG
--- NOTE | 2016-10-13 22:56 | CARD ---
APPROVED REPORT EKG Measurement Heart [id number] <Conclusion> Junctional bradycardia Abnormal ECG
[2016-10-14] MEDS: Albuterol 0.083% Inhal Sol (2.5 mg/3 mL) UD IH SCH ×6 (03:46→23:18)
[2016-10-14 05:47] LABS: ARTERIAL BLOOD GAS HCO3 30.3 mmol/L (21-28); ARTERIAL BLOOD GAS O2 CAPACITY 19.2 mL/dl (16-24); ARTERIAL BLOOD GAS O2 CONTENT 18.9 ML/dl (15-23); ARTERIAL BLOOD GAS PH 7.29 (7.35-7.45); ARTERIAL BLOOD HGB O2 SAT 94.1 % (95.0-98.0); CARBOXYHEMOGLOBIN 3.1 % (0.5-1.5); HHB 1.5 % (0-5); METHEMOGLOBIN 1.2 % (0.0-3.0)
[2016-10-14 06:08] LABS: ALB/GLOB RATIO 0.9 (1.1-1.8); BILIRUBIN,TOTAL 0.5 mg/dL (0.2-1.3); CALCIUM 8.6 mg/dL (8.4-10.5); MAGNESIUM 1.9 mg/dL (1.7-2.2); PHOSPHOROUS 4.9 mg/dL (2.5-4.5); POTASSIUM 4.7 mmol/L (3.6-5.0)
[2016-10-14] MEDS: Insulin Reg-HIGH-Coverage SC SCH ×4 (07:59→23:00)
[2016-10-14] MEDS: Sodium Chloride 0.9% 1,000 ML IV SCH ×2 (08:06→16:30)
[2016-10-14] MEDS: Propofol 10 mg/ml 1,000 MG/100 ML VIAL IV PRN (08:07)
[2016-10-14 08:29] LABS: LYME DISEASE SCREEN <0.90 index
[2016-10-14 08:46] LABS: ADD MANUAL DIFF? NO
[2016-10-14 08:47] LABS: GRAN # 8.62 (1.4-6.5); GRAN % 93.4 % (50.0-68.0); HEMATOCRIT 25.2 % (36.0-48.0); LYMPH # 0.3 (1.2-3.4); LYMPH % 3.5 % (22.0-35.0); MEAN CELL VOLUME 83.2 fL (80.0-105.0); MEAN CORPUSCULAR HEMOGLOBIN 27.1 pg (25.0-35.0); MEAN CORPUSCULAR HGB CONC 32.5 g/dl (31.0-37.0); MEAN PLATELET VOLUME 10.6 fl (7.0-11.0); MONO # 0.3 (0.1-0.6); MONO % 3.1 % (1.0-6.0); PLATELET COUNT 201 10^3/uL (120.0-450.0); RED CELL DISTRIBUTION WIDTH 14.6 % (11.5-14.5); WHITE BLOOD COUNT 9.2 10^3/ul (4.5-11.0)
[2016-10-14] MEDS: MethylPREDNISolone 40 mg Vial IVP SCH ×2 (09:38→22:48)
[2016-10-14] MEDS: Insulin Detemir 100 units/ml Vial (Levemir) SC SCH ×2 (09:38→18:26)
[2016-10-14] MEDS: Enoxaparin 40 mg Syringe SC SCH (09:39)
[2016-10-14] MEDS: Cefepime IV 2 gm in NS 2 GM/100 ML BAG IVPB SCH (09:39)
--- NOTE | 2016-10-14 10:28 | PN ---
DATE: 10/14/2016 REASON FOR CONSULTATION: Bradycardia, hypotension, respiratory failure. BRIEF CLINICAL HISTORY: A 71-year-old female with past medical history significant for brittle diabe jackie, hypertension, hyperlipidemia, very sensitive to beta luis, goes severe hypotension and juncti onal milagro, this is third episode, who was having according to patient's son and up and down the blood pressure. The patient took extra pills and came in here, very weak, lethargic, junctional milagro, requiring intubation. External pacing was placed, but never used; started on dopamine. After 24 hours, the patient recovered. Now, the patient is in normal sinus off dopamine, awake and alert. Yesterday discussed again with the son, Yeny, and the that beta luis should not be used in the future. PHYSICAL EXAMINATION: VITAL SIGNS: Temperature afebrile, heart rate 94, blood pressure 137/56. HEENT: PERRLA. Extraocular muscles intact. NECK: Supple. No carotid bruits. No thyromegaly. CHEST: Clear to auscultation. HEART: S1, S2 regular. ABDOMEN: Soft. EXTREMITIES: Clubbing and cyanosis negative. BLOOD WORKUP: As follows: WBC 9.8, hemoglobin 8.8, hematocrit 25.2, platelet count 201. Chemistry shows sodium 130, potassium 4.0, chloride 109, carbon dioxide 18, anion gap of 14, BUN 48, creatinine 1.4. IMPRESSION: Chronic obstructive pulmonary disease exacerbation, diabetes, hypertension, hyperlipidem ia, obesity, nonobstructive coronary artery disease, status post cardiac catheterization in 2013. Hi story of junctional bradycardia secondary to possible beta luis. The patient at home was taking a gain beta luis, though in spite of multiple times mentioned the patient should not take a beta blo cker. This is the third episode the patient admitted with junctional bradycardia and bradycardia aft er having a beta luis prior to that. The patient was on digoxin, Cardizem as well as beta luis . This is the third episode. Discussed in length yesterday with the son named Yeny on the phone and the that should not be used. Also discussed with primary care doctor, Dr. Ponce, who takes care here while the patient is in the hospital and the patient is followed outside by Dr. De León. We will also communicate with Dr. De León as well. History of chronic diarrhea, history of brittle d iabetes with no evidence of acute coronary syndrome nor evidence of acute myocardial infarction, hist ory of laryngeal edema and difficult intubation. The patient is off dopamine, in normal sinus, does not need pacemaker, but patient should not be given beta luis in the future. RECOMMENDATIONS: Continue vent management. Continue aggressive treatment for COPD. Try to wean off the vent as tolerated. Again, the patient should not be given beta luis, should not be given dig oxin, should not be given Cardizem. Off dopamine. We will follow with you. Thank you, Dr. Ponce, for providing us the opportunity in taking care of the patient. Belle Mar MD cc: [id number] TT: 10/14/2016 10:27:55 Confirmation # [id number] Dictation # [id number]
--- NOTE | 2016-10-14 10:37 | RAD ---
HISTORY: intubated, f/u COMPARISON: 10/13/2016 FINDINGS: LUNGS: Severe vascular congestion and left lower lobe infiltrate PLEURA: No significant pleural effusion identified, no pneumothorax apparent. CARDIOVASCULAR: Normal. OSSEOUS STRUCTURES: No significant abnormalities. VISUALIZED UPPER ABDOMEN: Normal. OTHER FINDINGS: Endotracheal and nasogastric tube in satisfactory position IMPRESSION: Severe vascular congestion and left lower lobe infiltrate
--- NOTE | 2016-10-14 11:58 | CP.CCUPN ---
<Chavo Sandhu - Last Filed: 10/14/16 12:03> CCU Subjective - Physician Review Subjective (Free Text): 10/13/16 11:17 Patient seen and examined at bedside in the ICU. Today is hospital day 3. Overnight, patient regained sinus rhythm with HR 90's-100's, and Dopamine drip was discontinued. Propafol was increased due to agitation and patients attempts to self-extubate. Today, remains in sinus rhythm and with appropriate blood pressure off of Dopamine. Patient was awake and tracking staff in room despite an increased amount of propofol, and the IV site was concerning for infiltration, so it was switched to her remaining IV access and titrated down. CCU Objective - Vital Signs / Intake & Output Vital Signs (Last 4 hours): Vital Signs Temp Pulse 10/14/16 08:20 100.1 F H 10/14/16 08:00 94 H Intake and Output (Last 8hrs): Intake & Output 10/13/16 10/14/16 10/14/16 22:59 06:59 14:59 Intake Total 400 950 130 Output Total 1750 Balance 400 -800 130 Intake: IV 400 950 130 Left Antecubital 400 Right Hand 450 Output: Gastric Amount 50 Nares 50 Urine 1700 Urethral ([place]) 1700 Other: Voiding Method Indwelling Catheter Indwelling Catheter Indwelling Catheter - Physical Exam Physical Exam Limitations: Positive for: Other (Not following commands) Head: Positive for: Atraumatic, Normocephalic. Negative for: Abrasion, Laceration Pupils: Negative for: Pinpoint Extroacular Muscles: Positive for: EOMI (not following commands for EOMI testing but tracking staff and family throughout room) Conjunctiva: Positive for: Normal. Negative for: Injected, Icteric Mouth: Positive for: Moist Mucous Membranes, Other (ETT in place) Nose (External): Positive for: Atraumatic, Other (NGT in place). Negative for: Abrasion, Contusion, Laceration Neck: Positive for: Trachea Midline. Negative for: JVD Respiratory/Chest: Positive for: Good Air Exchange, Rhonchi (mild ronchi all liu, improved compared to yesterday). Negative for: Clear to Auscultation, Respiratory Distress, Accessory Muscle Use, Decreased Breath Sounds Cardiovascular: Positive for: Regular Rate and Rhythm, Normal S1, S2. Negative for: Murmurs, Irregular Rhythm, Tachycardic, Bradycardic Abdomen: Positive for: Normal Bowel Sounds. Negative for: Distention (firm, but not distended), Peritoneal Signs, Ostomy Tubes, Mass/Organomegaly Upper Extremity: Positive for: Swelling (swollen, but non-pitting edema in bilateral UE), Other (intermittent movement to painful stimuli (i.e. ABG draw), otherwise holding extremities flaccidly). Negative for: Normal Inspection, Cyanosis, Edema, NORMAL PULSES (difficult to palpate through swelling, +1 radials bilaterally), Deformity Lower Extremity: Positive for: Edema (+1-2 pitting edema B/L). Negative for: Normal Inspection, Cyanosis, Erythema, Deformity Neurological: Negative for: GCS=15 (E2V(T)M4), Speech Normal (intubated and sedated), Motor Func Grossly Intact Skin: Positive for: Warm, Dry, Normal Color. Negative for: Rashes Psychiatric: Negative for: Alert, Oriented x 3, Normal Insight, Normal Concentration - Medications Active Medications: Active Medications Generic Name Dose Route Start Last Admin Trade Name Freq PRN Reason Stop Dose Admin Albuterol Sulfate 1.25 mg 10/13/16 11:36 10/14/16 11:32 Albuterol 0.083% Inhal Radha (2.5 Mg/3 Ml) Ud IH 1.25 mg [id number] SONYA Administration Enoxaparin Sodium 40 mg 10/13/16 10:00 10/14/16 09:39 Lovenox SC 10/18/16 07:00 40 mg DAILY SONYA Administration Protocol Propofol 1,000 mg in 100 mls @ 3.13 mls/hr 10/12/16 19:08 10/14/16 10:40 Diprivan IV 0 mcg/kg/min .Q24H PRN 0 mls/hr TITRATE PER MD ORDER Titration Protocol 5 MCG/KG/MIN Doxycycline Hyclate 100 mg/ 100 mls @ 100 mls/hr 10/12/16 23:00 10/14/16 09: 39 Sodium Chloride IVPB 100 mls/hr Q12 SONYA Administration Protocol Cefepime HCl 2 gm in 100 mls @ 100 mls/hr 10/13/16 10:15 10/14/16 09:39 Maxipime 2gm IVPB 10/18/16 10:16 100 mls/hr Q12 SONYA Administration Protocol Sodium Chloride 1,000 mls @ 150 mls/hr 10/14/16 07:45 10/14/16 08:06 Sodium Chloride 0.9% IV 150 mls/hr .Q6H40M SONYA Administration Insulin Detemir 10 unit 10/13/16 18:00 10/14/16 09:38 Levemir SC 10 unit BID SONYA Administration Insulin Human Regular 0 units 10/13/16 11:30 10/14/16 07:59 Humulin R High SC 2 units ACHS SONYA Administration Protocol Methylprednisolone 40 mg 10/13/16 10:00 10/14/16 09:38 Solu-Medrol IVP 40 mg Q12 SONYA Administration Pantoprazole Sodium 40 mg 10/13/16 10:00 10/14/16 09:38 Protonix Inj IVP 40 mg DAILY SONYA Administration - Patient Studies Lab Studies: Microbiology Studies 10/12/16 19:10 Blood Culture - Preliminary Blood-Venous NO GROWTH AFTER 24 HOURS Lab Studies 10/14/16 10/14/16 10/14/16 Range/Units 08:40 05:30 05:15 WBC 9.2 (4.5-11.0) 10^3/ul RBC 3.03 L (3.5-6.1) 10^6/uL Hgb 8.2 L (12.0-16.0) gm/dL Hct 25.2 L (36.0-48.0) % MCV 83.2 (80.0-105.0) fL MCH 27.1 (25.0-35.0) pg MCHC 32.5 (31.0-37.0) g/dl RDW 14.6 H (11.5-14.5) % Plt Count 201 (120.0-450.0) 10^3/uL MPV 10.6 (7.0-11.0) fl Gran % 93.4 H (50.0-68.0) % Lymph % (Auto) 3.5 L (22.0-35.0) % [place] % (Auto) 3.1 (1.0-6.0) % Eos % (Auto) 0.0 L (1.5-5.0) % Baso % (Auto) 0.0 (0.0-3.0) % Gran # 8.62 H (1.4-6.5) Lymph # 0.3 L (1.2-3.4) [place] # 0.3 (0.1-0.6) Eos # 0.0 (0.0-0.7) Baso # 0.00 (0.0-2.0) K/mm3 pCO2 63 H (35-45) mm/Hg pO2 104.0 H (80-100) mm/Hg HCO3 30.3 H (21-28) mmol/L ABG pH 7.29 L (7.35-7.45) ABG Total CO2 32.2 H (22-28) mmol.L ABG O2 Saturation 98.4 H (95-98) % ABG O2 Content 18.9 (15-23) ML/dl ABG Base Excess 1.9 (-2.0-3.0) mmol/L ABG Hemoglobin 14.2 (11.7-17.4) g/dL ABG Carboxyhemoglobin 3.1 H (0.5-1.5) % POC ABG HHb (Measured) 1.5 (0-5) % ABG Methemoglobin 1.2 (0.0-3.0) % ABG O2 Capacity 19.2 (16-24) mL/dl Hgb O2 Saturation 94.1 L (95.0-98.0) % FiO2 40.0 % Sodium 136 (132-148) mmol/L Potassium 4.7 (3.6-5.0) mmol/L Chloride 109 H (98-107) mmol/L Carbon Dioxide 18 L (21-33) mmol/L Anion Gap 14 (10-20) BUN 48 H (7-21) mg/dL Creatinine 1.4 (0.5-1.4) mg/dL Est GFR ( Amer) 45 Est GFR (Non-Af Amer) 37 POC Glucose (mg/dL) (65-110) mg/dL Random Glucose 164 H (70-110) mg/dL Calcium 8.6 (8.4-10.5) mg/dL Phosphorus 4.9 H (2.5-4.5) mg/dL Magnesium 1.9 (1.7-2.2) mg/dL Total Bilirubin 0.5 (0.2-1.3) mg/dL AST 11 L (15-39) U/L ALT 34 (7-56) U/L Alkaline Phosphatase 135 H (38-133) U/L Total Protein 6.0 (5.8-8.3) g/dL Albumin 2.8 L (3.0-4.8) g/dL Globulin 3.2 gm/dL Albumin/Globulin Ratio 0.9 L (1.1-1.8) Procalcitonin (0.19-0.49) NG/ML 10/13/16 10/13/16 10/13/16 Range/Units 21:41 16:57 11:04 WBC (4.5-11.0) 10^3/ul RBC (3.5-6.1) 10^6/uL Hgb (12.0-16.0) gm/dL Hct (36.0-48.0) % MCV (80.0-105.0) fL MCH (25.0-35.0) pg MCHC (31.0-37.0) g/dl RDW (11.5-14.5) % Plt Count (120.0-450.0) 10^3/uL MPV (7.0-11.0) fl Gran % (50.0-68.0) % Lymph % (Auto) (22.0-35.0) % [place] % (Auto) (1.0-6.0) % Eos % (Auto) (1.5-5.0) % Baso % (Auto) (0.0-3.0) % Gran # (1.4-6.5) Lymph # (1.2-3.4) [place] # (0.1-0.6) Eos # (0.0-0.7) Baso # (0.0-2.0) K/mm3 pCO2 (35-45) mm/Hg pO2 (80-100) mm/Hg HCO3 (21-28) mmol/L ABG pH (7.35-7.45) ABG Total CO2 (22-28) mmol.L ABG O2 Saturation (95-98) % ABG O2 Content (15-23) ML/dl ABG Base Excess (-2.0-3.0) mmol/L ABG Hemoglobin (11.7-17.4) g/dL ABG Carboxyhemoglobin (0.5-1.5) % POC ABG HHb (Measured) (0-5) % ABG Methemoglobin (0.0-3.0) % ABG O2 Capacity (16-24) mL/dl Hgb O2 Saturation (95.0-98.0) % FiO2 % Sodium (132-148) mmol/L Potassium (3.6-5.0) mmol/L Chloride (98-107) mmol/L Carbon Dioxide (21-33) mmol/L Anion Gap (10-20) BUN (7-21) mg/dL Creatinine (0.5-1.4) mg/dL Est GFR ( Amer) Est GFR (Non-Af Amer) POC Glucose (mg/dL) 274 H 357 H 388 H (65-110) mg/dL Random Glucose (70-110) mg/dL Calcium (8.4-10.5) mg/dL Phosphorus (2.5-4.5) mg/dL Magnesium (1.7-2.2) mg/dL Total Bilirubin (0.2-1.3) mg/dL AST (15-39) U/L ALT (7-56) U/L Alkaline Phosphatase (38-133) U/L Total Protein (5.8-8.3) g/dL Albumin (3.0-4.8) g/dL Globulin gm/dL Albumin/Globulin Ratio (1.1-1.8) Procalcitonin (0.19-0.49) NG/ML 10/13/16 10/13/16 Range/Units 08:48 08:30 WBC (4.5-11.0) 10^3/ul RBC (3.5-6.1) 10^6/uL Hgb (12.0-16.0) gm/dL Hct (36.0-48.0) % MCV (80.0-105.0) fL MCH (25.0-35.0) pg MCHC (31.0-37.0) g/dl RDW (11.5-14.5) % Plt Count (120.0-450.0) 10^3/uL MPV (7.0-11.0) fl Gran % (50.0-68.0) % Lymph % (Auto) (22.0-35.0) % [place] % (Auto) (1.0-6.0) % Eos % (Auto) (1.5-5.0) % Baso % (Auto) (0.0-3.0) % Gran # (1.4-6.5) Lymph # (1.2-3.4) [place] # (0.1-0.6) Eos # (0.0-0.7) Baso # (0.0-2.0) K/mm3 pCO2 (35-45) mm/Hg pO2 (80-100) mm/Hg HCO3 (21-28) mmol/L ABG pH (7.35-7.45) ABG Total CO2 (22-28) mmol.L ABG O2 Saturation (95-98) % ABG O2 Content (15-23) ML/dl ABG Base Excess (-2.0-3.0) mmol/L ABG Hemoglobin (11.7-17.4) g/dL ABG Carboxyhemoglobin (0.5-1.5) % POC ABG HHb (Measured) (0-5) % ABG Methemoglobin (0.0-3.0) % ABG O2 Capacity (16-24) mL/dl Hgb O2 Saturation (95.0-98.0) % FiO2 % Sodium (132-148) mmol/L Potassium (3.6-5.0) mmol/L Chloride (98-107) mmol/L Carbon Dioxide (21-33) mmol/L Anion Gap (10-20) BUN (7-21) mg/dL Creatinine (0.5-1.4) mg/dL Est GFR ( Amer) Est GFR (Non-Af Amer) POC Glucose (mg/dL) 496 H* (65-110) mg/dL Random Glucose (70-110) mg/dL Calcium (8.4-10.5) mg/dL Phosphorus (2.5-4.5) mg/dL Magnesium (1.7-2.2) mg/dL Total Bilirubin (0.2-1.3) mg/dL AST (15-39) U/L ALT (7-56) U/L Alkaline Phosphatase (38-133) U/L Total Protein (5.8-8.3) g/dL Albumin (3.0-4.8) g/dL Globulin gm/dL Albumin/Globulin Ratio (1.1-1.8) Procalcitonin 5.52 H (0.19-0.49) NG/ML Laboratory Results - last 24 hr 10/13/16 10/13/16 10/13/16 08:30 08:48 11:04 WBC RBC Hgb Hct MCV MCH MCHC RDW Plt Count MPV Gran % Lymph % (Auto) [place] % (Auto) Eos % (Auto) Baso % (Auto) Gran # Lymph # [place] # Eos # Baso # pCO2 pO2 HCO3 ABG pH ABG Total CO2 ABG O2 Saturation ABG O2 Content ABG Base Excess ABG Hemoglobin ABG Carboxyhemoglobin POC ABG HHb (Measured) ABG Methemoglobin ABG O2 Capacity Hgb O2 Saturation FiO2 Sodium Potassium Chloride Carbon Dioxide Anion Gap BUN Creatinine Est GFR ( Amer) Est GFR (Non-Af Amer) POC Glucose (mg/dL) 496 H* 388 H Random Glucose Calcium Phosphorus Magnesium Total Bilirubin AST ALT Alkaline Phosphatase Total Protein Albumin Globulin Albumin/Globulin Ratio Procalcitonin 5.52 H 10/13/16 10/13/16 10/14/16 16:57 21:41 05:15 WBC RBC Hgb Hct MCV MCH MCHC RDW Plt Count MPV Gran % Lymph % (Auto) [place] % (Auto) Eos % (Auto) Baso % (Auto) Gran # Lymph # [place] # Eos # Baso # pCO2 pO2 HCO3 ABG pH ABG Total CO2 ABG O2 Saturation ABG O2 Content ABG Base Excess ABG Hemoglobin ABG Carboxyhemoglobin POC ABG HHb (Measured) ABG Methemoglobin ABG O2 Capacity Hgb O2 Saturation FiO2 Sodium 136 Potassium 4.7 Chloride 109 H Carbon Dioxide 18 L Anion Gap 14 BUN 48 H Creatinine 1.4 Est GFR ( Amer) 45 Est GFR (Non-Af Amer) 37 POC Glucose (mg/dL) 357 H 274 H Random Glucose 164 H Calcium 8.6 Phosphorus 4.9 H Magnesium 1.9 Total Bilirubin 0.5 AST 11 L ALT 34 Alkaline Phosphatase 135 H Total Protein 6.0 Albumin 2.8 L Globulin 3.2 Albumin/Globulin Ratio 0.9 L Procalcitonin 10/14/16 10/14/16 05:30 08:40 WBC 9.2 RBC 3.03 L Hgb 8.2 L Hct 25.2 L MCV 83.2 MCH 27.1 MCHC 32.5 RDW 14.6 H Plt Count 201 MPV 10.6 Gran % 93.4 H Lymph % (Auto) 3.5 L [place] % (Auto) 3.1 Eos % (Auto) 0.0 L Baso % (Auto) 0.0 Gran # 8.62 H Lymph # 0.3 L [place] # 0.3 Eos # 0.0 Baso # 0.00 pCO2 63 H pO2 104.0 H HCO3 30.3 H ABG pH 7.29 L ABG Total CO2 32.2 H ABG O2 Saturation 98.4 H ABG O2 Content 18.9 ABG Base Excess 1.9 ABG Hemoglobin 14.2 ABG Carboxyhemoglobin 3.1 H POC ABG HHb (Measured) 1.5 ABG Methemoglobin 1.2 ABG O2 Capacity 19.2 Hgb O2 Saturation 94.1 L FiO2 40.0 Sodium Potassium Chloride Carbon Dioxide Anion Gap BUN Creatinine Est GFR ( Amer) Est GFR (Non-Af Amer) POC Glucose (mg/dL) Random Glucose Calcium Phosphorus Magnesium Total Bilirubin AST ALT Alkaline Phosphatase Total Protein Albumin Globulin Albumin/Globulin Ratio Procalcitonin EKG/Cardiology Studies: Cardiology / EKG Studies 10/14/16 07:15 EKG [ELECTROCARDIOGRAM] DAILY Comment: Reason For Exam: junctional bradycardia, f/u Fingerstick Blood Sugar Results: 167 Review of Systems - Review of Systems Systems not reviewed;Unavailable: Intubated Assessment/Plan - Assessment and Plan (Free Text) Assessment: This is a 71 yo F with PMH notable for DM-2, HTN, dyslipidemia, subaortic stenosis, Pulm HTN, and 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 She has regained sinus rhythm and normotension off of dopamine drip, and is pending possible extubation. Plan: Neuro: -intubated, awake and alert while weaning sedation, pending extubation after propofol weaned and pressure support trial passed -withdraws from pain, tracking staff and family in room, still not following most commands -maintain normothermia Pulm: -intubated, weaning propofol sedation, tolerating Pressure support trial well, pending Balloon leak test; if passing air past deflated balloon, will extubate -conservative O2 management, SaO2 > 90%, paO2 > 60 -Protective lung ventilation strategy, VAP bundle, head of bed to 30 degrees, aspiration precautions -AM ABG reviewed -Chest/Abd/Pelvis CT notable for bilateral airspace disease greatest at bases, lower lobe consolidation suggestive of pneumonia -Covering with Doxy and Rocephin as per ID -Difficult intubation, edematous area surrounding vocal cords, possible EDAC; giving steroids for airway inflammation/edema, will perform balloon-leak test prior to any extubation -Pulm (Dr. Lopez) consulted, appreciate any recs Cardio -junctional bradycardia resolved, regained NSR (90's-100) overnight -HR and BP wnl off of Dopamine drip, continue to monitor -poor venous access, IR consulted for PICC placement -Cardio (Dr. Mar) on board, appreciate all recs; beta-blockers contraindicated for this patient moving forward -Echo in 05/30/16 notable for LVEF 66%, asymmetrical LVH, proximal septal thickening with IHSS pathology, trace AR, mild , moderate MR, mild-mod TR, IVC dilation (please see full reports for further details); repeat Echo ordered -AM EKG NSR at 95, IA/QRS/QTc intervals wnl GI: -CT chest/abd/pelvis, negative for acute abdominal or pelvic process, no diverticulitis or appendicitis -NPO -Protonix for GI ppx -NGT placed to drain stomach after repeat episode of emesis yesterday, ~300cc light green drainage obtained Renal: -strict I's&O's, daily weights -monitor and replete electrolytes; Mg/K/Ca wnl, elevated phos today, continue to monitor -avoid nephrotoxic drugs where feasible -maintain euglycemia Heme: -Hgb 8.2 (was 9.3), per prior charting, at baseline, continue to monitor -coags wnl on admission -Lovenox for DVT ppx ID: -WBCs 9.2 (was 9.7), afebrile -Rocephin and Doxycycline for coverage -ID (Dr. Leyva) consulted, appreciate all recs -Blood cultures negative at 24 hours, continue to monitor -Urine culture positive for ESBL Klebsiella, ID made aware -Continue to monitor Endo: -Blood glucose on fingersticks and AM labs downtrending from yesterday, AM BG on CMP was 164, no anion gap -continue fingersticks ACHS, levemir 15 units BID per Primary (Dr. Ponce), High -dose sliding scale for additional coverage Dispo: ICU, pending extubation if passes balloon-leak trial, now in NSR FEN: NPO Access: Peripheral IV, ETT, NGT Consults: Cardio, Pulm, ID, IR Ppx: Protonix for GI, Lovenox for DVT Patient seen, reviewed, and discussed with attending, Dr. Harrington. - Date & Time Date: 10/14/16 Time: 12:30 <Juany HU,[facility] - Last Filed: 10/14/16 12:50> CCU Objective - Vital Signs / Intake & Output Vital Signs (Last 4 hours): Vital Signs Pulse Resp BP Pulse Ox 10/14/16 11:40 97 H 21 99 10/14/16 11:30 93 H 24 99 10/14/16 11:20 98 H 91 L 10/14/16 11:10 90 98 10/14/16 11:00 87 133/57 L 97 10/14/16 10:50 88 97 10/14/16 10:40 86 97 10/14/16 10:30 88 97 10/14/16 10:20 89 97 10/14/16 10:10 91 H 97 10/14/16 10:00 89 132/64 97 10/14/16 09:50 89 97 10/14/16 09:40 90 97 10/14/16 09:30 89 97 10/14/16 09:20 90 97 10/14/16 09:10 92 H 96 10/14/16 09:00 92 H 129/49 L 96 10/14/16 08:50 94 H 97 Intake and Output (Last 8hrs): Intake & Output 10/13/16 10/14/16 10/14/16 22:59 06:59 14:59 Intake Total 400 950 130 Output Total 1750 Balance 400 -800 130 Intake: IV 400 950 130 Left Antecubital 400 Right Hand 450 Output: Gastric Amount 50 Nares 50 Urine 1700 Urethral ([place]) 1700 Other: Voiding Method Indwelling Catheter Indwelling Catheter Indwelling Catheter - Medications Active Medications: Active Medications Generic Name Dose Route Start Last Admin Trade Name Freq PRN Reason Stop Dose Admin Albuterol Sulfate 1.25 mg 10/13/16 11:36 10/14/16 11:32 Albuterol 0.083% Inhal Radha (2.5 Mg/3 Ml) Ud IH 1.25 mg [id number] SONYA Administration Enoxaparin Sodium 40 mg 10/13/16 10:00 10/14/16 09:39 Lovenox SC 10/18/16 07:00 40 mg DAILY SONYA Administration Protocol Propofol 1,000 mg in 100 mls @ 3.13 mls/hr 10/12/16 19:08 10/14/16 10:40 Diprivan IV 0 mcg/kg/min .Q24H PRN 0 mls/hr TITRATE PER MD ORDER Titration Protocol 5 MCG/KG/MIN Doxycycline Hyclate 100 mg/ 100 mls @ 100 mls/hr 10/12/16 23:00 10/14/16 09: 39 Sodium Chloride IVPB 100 mls/hr Q12 SONYA Administration Protocol Cefepime HCl 2 gm in 100 mls @ 100 mls/hr 10/13/16 10:15 10/14/16 09:39 Maxipime 2gm IVPB 10/18/16 10:16 100 mls/hr Q12 SONYA Administration Protocol Sodium Chloride 1,000 mls @ 150 mls/hr 10/14/16 07:45 10/14/16 08:06 Sodium Chloride 0.9% IV 150 mls/hr .Q6H40M SONYA Administration Insulin Detemir 10 unit 10/13/16 18:00 10/14/16 09:38 Levemir SC 10 unit BID SONYA Administration Insulin Detemir 15 unit 10/14/16 18:00 Levemir SC BID SONYA Insulin Human Regular 0 units 10/13/16 11:30 10/14/16 12:03 Humulin R High SC 4 units ACHS SONYA Administration Protocol Methylprednisolone 40 mg 10/13/16 10:00 10/14/16 09:38 Solu-Medrol IVP 40 mg Q12 SONYA Administration Pantoprazole Sodium 40 mg 10/13/16 10:00 10/14/16 09:38 Protonix Inj IVP 40 mg DAILY SONYA Administration - Patient Studies Lab Studies: Microbiology Studies 10/12/16 19:10 Blood Culture - Preliminary Blood-Venous NO GROWTH AFTER 24 HOURS Lab Studies 10/14/16 10/14/16 10/14/16 Range/Units 08:40 05:30 05:15 WBC 9.2 (4.5-11.0) 10^3/ul RBC 3.03 L (3.5-6.1) 10^6/uL Hgb 8.2 L (12.0-16.0) gm/dL Hct 25.2 L (36.0-48.0) % MCV 83.2 (80.0-105.0) fL MCH 27.1 (25.0-35.0) pg MCHC 32.5 (31.0-37.0) g/dl RDW 14.6 H (11.5-14.5) % Plt Count 201 (120.0-450.0) 10^3/uL MPV 10.6 (7.0-11.0) fl Gran % 93.4 H (50.0-68.0) % Lymph % (Auto) 3.5 L (22.0-35.0) % [place] % (Auto) 3.1 (1.0-6.0) % Eos % (Auto) 0.0 L (1.5-5.0) % Baso % (Auto) 0.0 (0.0-3.0) % Gran # 8.62 H (1.4-6.5) Lymph # 0.3 L (1.2-3.4) [place] # 0.3 (0.1-0.6) Eos # 0.0 (0.0-0.7) Baso # 0.00 (0.0-2.0) K/mm3 pCO2 63 H (35-45) mm/Hg pO2 104.0 H (80-100) mm/Hg HCO3 30.3 H (21-28) mmol/L ABG pH 7.29 L (7.35-7.45) ABG Total CO2 32.2 H (22-28) mmol.L ABG O2 Saturation 98.4 H (95-98) % ABG O2 Content 18.9 (15-23) ML/dl ABG Base Excess 1.9 (-2.0-3.0) mmol/L ABG Hemoglobin 14.2 (11.7-17.4) g/dL ABG Carboxyhemoglobin 3.1 H (0.5-1.5) % POC ABG HHb (Measured) 1.5 (0-5) % ABG Methemoglobin 1.2 (0.0-3.0) % ABG O2 Capacity 19.2 (16-24) mL/dl Hgb O2 Saturation 94.1 L (95.0-98.0) % FiO2 40.0 % Sodium 136 (132-148) mmol/L Potassium 4.7 (3.6-5.0) mmol/L Chloride 109 H (98-107) mmol/L Carbon Dioxide 18 L (21-33) mmol/L Anion Gap 14 (10-20) BUN 48 H (7-21) mg/dL Creatinine 1.4 (0.5-1.4) mg/dL Est GFR ( Amer) 45 Est GFR (Non-Af Amer) 37 POC Glucose (mg/dL) (65-110) mg/dL Random Glucose 164 H (70-110) mg/dL Calcium 8.6 (8.4-10.5) mg/dL Phosphorus 4.9 H (2.5-4.5) mg/dL Magnesium 1.9 (1.7-2.2) mg/dL Total Bilirubin 0.5 (0.2-1.3) mg/dL AST 11 L (15-39) U/L ALT 34 (7-56) U/L Alkaline Phosphatase 135 H (38-133) U/L Total Protein 6.0 (5.8-8.3) g/dL Albumin 2.8 L (3.0-4.8) g/dL Globulin 3.2 gm/dL Albumin/Globulin Ratio 0.9 L (1.1-1.8) Procalcitonin (0.19-0.49) NG/ML 10/13/16 10/13/16 10/13/16 Range/Units 21:41 16:57 11:04 WBC (4.5-11.0) 10^3/ul RBC (3.5-6.1) 10^6/uL Hgb (12.0-16.0) gm/dL Hct (36.0-48.0) % MCV (80.0-105.0) fL MCH (25.0-35.0) pg MCHC (31.0-37.0) g/dl RDW (11.5-14.5) % Plt Count (120.0-450.0) 10^3/uL MPV (7.0-11.0) fl Gran % (50.0-68.0) % Lymph % (Auto) (22.0-35.0) % [place] % (Auto) (1.0-6.0) % Eos % (Auto) (1.5-5.0) % Baso % (Auto) (0.0-3.0) % Gran # (1.4-6.5) Lymph # (1.2-3.4) [place] # (0.1-0.6) Eos # (0.0-0.7) Baso # (0.0-2.0) K/mm3 pCO2 (35-45) mm/Hg pO2 (80-100) mm/Hg HCO3 (21-28) mmol/L ABG pH (7.35-7.45) ABG Total CO2 (22-28) mmol.L ABG O2 Saturation (95-98) % ABG O2 Content (15-23) ML/dl ABG Base Excess (-2.0-3.0) mmol/L ABG Hemoglobin (11.7-17.4) g/dL ABG Carboxyhemoglobin (0.5-1.5) % POC ABG HHb (Measured) (0-5) % ABG Methemoglobin (0.0-3.0) % ABG O2 Capacity (16-24) mL/dl Hgb O2 Saturation (95.0-98.0) % FiO2 % Sodium (132-148) mmol/L Potassium (3.6-5.0) mmol/L Chloride (98-107) mmol/L Carbon Dioxide (21-33) mmol/L Anion Gap (10-20) BUN (7-21) mg/dL Creatinine (0.5-1.4) mg/dL Est GFR ( Amer) Est GFR (Non-Af Amer) POC Glucose (mg/dL) 274 H 357 H 388 H (65-110) mg/dL Random Glucose (70-110) mg/dL Calcium (8.4-10.5) mg/dL Phosphorus (2.5-4.5) mg/dL Magnesium (1.7-2.2) mg/dL Total Bilirubin (0.2-1.3) mg/dL AST (15-39) U/L ALT (7-56) U/L Alkaline Phosphatase (38-133) U/L Total Protein (5.8-8.3) g/dL Albumin (3.0-4.8) g/dL Globulin gm/dL Albumin/Globulin Ratio (1.1-1.8) Procalcitonin (0.19-0.49) NG/ML 10/13/16 10/13/16 Range/Units 08:48 08:30 WBC (4.5-11.0) 10^3/ul RBC (3.5-6.1) 10^6/uL Hgb (12.0-16.0) gm/dL Hct (36.0-48.0) % MCV (80.0-105.0) fL MCH (25.0-35.0) pg MCHC (31.0-37.0) g/dl RDW (11.5-14.5) % Plt Count (120.0-450.0) 10^3/uL MPV (7.0-11.0) fl Gran % (50.0-68.0) % Lymph % (Auto) (22.0-35.0) % [place] % (Auto) (1.0-6.0) % Eos % (Auto) (1.5-5.0) % Baso % (Auto) (0.0-3.0) % Gran # (1.4-6.5) Lymph # (1.2-3.4) [place] # (0.1-0.6) Eos # (0.0-0.7) Baso # (0.0-2.0) K/mm3 pCO2 (35-45) mm/Hg pO2 (80-100) mm/Hg HCO3 (21-28) mmol/L ABG pH (7.35-7.45) ABG Total CO2 (22-28) mmol.L ABG O2 Saturation (95-98) % ABG O2 Content (15-23) ML/dl ABG Base Excess (-2.0-3.0) mmol/L ABG Hemoglobin (11.7-17.4) g/dL ABG Carboxyhemoglobin (0.5-1.5) % POC ABG HHb (Measured) (0-5) % ABG Methemoglobin (0.0-3.0) % ABG O2 Capacity (16-24) mL/dl Hgb O2 Saturation (95.0-98.0) % FiO2 % Sodium (132-148) mmol/L Potassium (3.6-5.0) mmol/L Chloride (98-107) mmol/L Carbon Dioxide (21-33) mmol/L Anion Gap (10-20) BUN (7-21) mg/dL Creatinine (0.5-1.4) mg/dL Est GFR ( Amer) Est GFR (Non-Af Amer) POC Glucose (mg/dL) 496 H* (65-110) mg/dL Random Glucose (70-110) mg/dL Calcium (8.4-10.5) mg/dL Phosphorus (2.5-4.5) mg/dL Magnesium (1.7-2.2) mg/dL Total Bilirubin (0.2-1.3) mg/dL AST (15-39) U/L ALT (7-56) U/L Alkaline Phosphatase (38-133) U/L Total Protein (5.8-8.3) g/dL Albumin (3.0-4.8) g/dL Globulin gm/dL Albumin/Globulin Ratio (1.1-1.8) Procalcitonin 5.52 H (0.19-0.49) NG/ML Laboratory Results - last 24 hr 10/13/16 10/13/16 10/13/16 08:30 08:48 11:04 WBC RBC Hgb Hct MCV MCH MCHC RDW Plt Count MPV Gran % Lymph % (Auto) [place] % (Auto) Eos % (Auto) Baso % (Auto) Gran # Lymph # [place] # Eos # Baso # pCO2 pO2 HCO3 ABG pH ABG Total CO2 ABG O2 Saturation ABG O2 Content ABG Base Excess ABG Hemoglobin ABG Carboxyhemoglobin POC ABG HHb (Measured) ABG Methemoglobin ABG O2 Capacity Hgb O2 Saturation FiO2 Sodium Potassium Chloride Carbon Dioxide Anion Gap BUN Creatinine Est GFR ( Amer) Est GFR (Non-Af Amer) POC Glucose (mg/dL) 496 H* 388 H Random Glucose Calcium Phosphorus Magnesium Total Bilirubin AST ALT Alkaline Phosphatase Total Protein Albumin Globulin Albumin/Globulin Ratio Procalcitonin 5.52 H 10/13/16 10/13/16 10/14/16 16:57 21:41 05:15 WBC RBC Hgb Hct MCV MCH MCHC RDW Plt Count MPV Gran % Lymph % (Auto) [place] % (Auto) Eos % (Auto) Baso % (Auto) Gran # Lymph # [place] # Eos # Baso # pCO2 pO2 HCO3 ABG pH ABG Total CO2 ABG O2 Saturation ABG O2 Content ABG Base Excess ABG Hemoglobin ABG Carboxyhemoglobin POC ABG HHb (Measured) ABG Methemoglobin ABG O2 Capacity Hgb O2 Saturation FiO2 Sodium 136 Potassium 4.7 Chloride 109 H Carbon Dioxide 18 L Anion Gap 14 BUN 48 H Creatinine 1.4 Est GFR ( Amer) 45 Est GFR (Non-Af Amer) 37 POC Glucose (mg/dL) 357 H 274 H Random Glucose 164 H Calcium 8.6 Phosphorus 4.9 H Magnesium 1.9 Total Bilirubin 0.5 AST 11 L ALT 34 Alkaline Phosphatase 135 H Total Protein 6.0 Albumin 2.8 L Globulin 3.2 Albumin/Globulin Ratio 0.9 L Procalcitonin 10/14/16 10/14/16 05:30 08:40 WBC 9.2 RBC 3.03 L Hgb 8.2 L Hct 25.2 L MCV 83.2 MCH 27.1 MCHC 32.5 RDW 14.6 H Plt Count 201 MPV 10.6 Gran % 93.4 H Lymph % (Auto) 3.5 L [place] % (Auto) 3.1 Eos % (Auto) 0.0 L Baso % (Auto) 0.0 Gran # 8.62 H Lymph # 0.3 L [place] # 0.3 Eos # 0.0 Baso # 0.00 pCO2 63 H pO2 104.0 H HCO3 30.3 H ABG pH 7.29 L ABG Total CO2 32.2 H ABG O2 Saturation 98.4 H ABG O2 Content 18.9 ABG Base Excess 1.9 ABG Hemoglobin 14.2 ABG Carboxyhemoglobin 3.1 H POC ABG HHb (Measured) 1.5 ABG Methemoglobin 1.2 ABG O2 Capacity 19.2 Hgb O2 Saturation 94.1 L FiO2 40.0 Sodium Potassium Chloride Carbon Dioxide Anion Gap BUN Creatinine Est GFR ( Amer) Est GFR (Non-Af Amer) POC Glucose (mg/dL) Random Glucose Calcium Phosphorus Magnesium Total Bilirubin AST ALT Alkaline Phosphatase Total Protein Albumin Globulin Albumin/Globulin Ratio Procalcitonin EKG/Cardiology Studies: Cardiology / EKG Studies 10/14/16 07:15 EKG [ELECTROCARDIOGRAM] DAILY Comment: Reason For Exam: junctional bradycardia, f/u Critical Care Progress Note - Nutrition Nutrition: Nutrition Category Date Time Status NPO Diet [DIET] Diets 10/14/16 Dinner Ordered Attending/Attestation - Attestation I have personally seen and examined this patient.: Yes I have fully participated in the care of the patient.: Yes I have reviewed all pertinent clinical information: Yes Notes (Text): 10/14/16 12:47 71 y/o F w/ Junctional bradycardia and Change in mental status requiring Intubation S/P SBT, P.S trial- Extubated after checking Cuff leak. mental status intact. Solumedrol given x 3 prior due to airway swelling. bradycardia resolved, off Dopamine. HR 80-95 bpm. Likely from medication induced causes. cardiology to determine home medications and dosing. Needs social media marketing specialist to help with medication management Severe ISABELLE, needs formal Sleep study and titration study. heparin sq tid cc time 65 min
--- NOTE | 2016-10-14 13:47 | CP.PCM.PN ---
Subjective - Date & Time of Evaluation Date of Evaluation: 10/14/16 Time of Evaluation: 09:40 - Subjective Subjective: Patient continues to be on the ventilator, afebrile overnight, not in distress but is sedated. Objective - Vital Signs/Intake and Output Vital Signs (last 24 hours): Temp Pulse Resp BP Pulse Ox 100.1 F H 97 H 21 133/57 L 99 10/14/16 08:20 10/14/16 11:40 10/14/16 11:40 10/14/16 11:00 10/14/16 11:40 Intake and Output: 10/14/16 10/14/16 06:59 18:59 Intake Total 1100 130 Output Total 1750 Balance -650 130 - Medications Medications: Current Medications Albuterol Sulfate (Albuterol 0.083% Inhal Radha (2.5 Mg/3 Ml) Ud) 1.25 mg IH [id number] [facility] Last Admin: 10/14/16 11:32 Dose: 1.25 mg Enoxaparin Sodium (Lovenox) 40 mg SC DAILY [facility] PRN Reason: Protocol Stop: 10/18/16 07:00 Last Admin: 10/14/16 09:39 Dose: 40 mg Propofol (Diprivan) 1,000 mg in 100 mls @ 3.13 mls/hr IV .Q24H PRN; Protocol; 5 MCG/KG/MIN PRN Reason: TITRATE PER MD ORDER Last Titration: 10/14/16 10:40 Dose: 0 mcg/kg/min, 0 mls/hr Doxycycline Hyclate 100 mg/ (Sodium Chloride) 100 mls @ 100 mls/hr IVPB Q12 [facility] PRN Reason: Protocol Last Admin: 10/14/16 09:39 Dose: 100 mls/hr Cefepime HCl (Maxipime 2gm) 2 gm in 100 mls @ 100 mls/hr IVPB Q12 [facility] PRN Reason: Protocol Stop: 10/18/16 10:16 Last Admin: 10/14/16 09:39 Dose: 100 mls/hr Sodium Chloride (Sodium Chloride 0.9%) 1,000 mls @ 150 mls/hr IV .Q6H40M [facility] Last Admin: 10/14/16 08:06 Dose: 150 mls/hr Insulin Detemir (Levemir) 10 unit SC BID [facility] Last Admin: 10/14/16 09:38 Dose: 10 unit Insulin Detemir (Levemir) 15 unit SC BID [facility] Insulin Human Regular (Humulin R High) 0 units SC ACHS [facility] PRN Reason: Protocol Last Admin: 10/14/16 12:03 Dose: 4 units Methylprednisolone (Solu-Medrol) 40 mg IVP Q12 [facility] Last Admin: 10/14/16 09:38 Dose: 40 mg Pantoprazole Sodium (Protonix Inj) 40 mg IVP DAILY [facility] Last Admin: 10/14/16 09:38 Dose: 40 mg - Labs Labs: 10/14/16 08:40 10/14/16 05:15 PT 10.9 Seconds (9.9-11.8) 10/12/16 16:16 INR 1.01 (0.93-1.08) 10/12/16 16:16 APTT 30.5 Seconds (23.7-30.8) 10/12/16 16:16 - Constitutional Appears: Other (Intubated and sedated) - ENT Exam Additional comments: ET tube in place - Neck Exam Neck Exam: absent: Lymphadenopathy, Meningismus - Respiratory Exam Respiratory Exam: Decreased Breath Sounds - Cardiovascular Exam Cardiovascular Exam: +S1, +S2 - GI/Abdominal Exam GI & Abdominal Exam: Soft. 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
[2016-10-14] MEDS: Meropenem 1g/NS 100mL IVPB 1 GM/100 ML PIGGYBACK IVPB SCH (14:10)
[2016-10-14] MEDS ORDERED: Benzocaine/Menthol (Cepacol) Lozenge MT PRN (14:29)
--- NOTE | 2016-10-14 14:57 | PN ---
DATE: 10/14/2016 REFERRING PHYSICIAN: Dr. Ponce. SUBJECTIVE: She is lying in the bed. Extubated. Still has some cough and shortness of breath. No nausea, no vomiting, no diarrhea. Has leg swelling. OBJECTIVE: GENERAL: In mild to moderate distress. VITAL SIGNS: Temp is 98, heart rate is 96, respiratory rate is 22, blood pressure 145/63, pulse ox 9 4% on nasal cannula. HEENT: Moist mucous membrane. Crowded airway. Mallampati score is 4. NECK: Supple. No JVD. LUNGS: Have a prolonged expiratory phase with some rhonchi and basilar crackles. HEART: S1, S2. ABDOMEN: Soft, nontender. No organomegaly. EXTREMITIES: Do have edema. NEUROLOGIC: Awake, alert, follows simple commands. MEDICATIONS: She is on DuoNeb q. 4 hours. Diprivan has been discontinued. Doxycycline 100 mg twice a day, insulin coverage, Levemir 10 units subQ twice a day, Lovenox 40 mg subQ daily, meropenem 1 g q. 12 hours, Protonix 40 mg IV daily, IV fluid normal saline 150 mL per hour, Solu-Medrol 40 mg q. 12 hours. LABORATORY DATA: Shows hemoglobin 8.2, hematocrit 25.2, WBC 9.2, platelet is 201. Blood gases this morning show pH 7.29, pC02 63, O2 was 104; that is at 40% supplemental oxygen. Sodium 136, potassium 4.7, chloride 109, bicarbonate 18, BUN 48, creatinine 1.4, glucose 164, calcium is 8.6, phosphorus 4 .9, magnesium is 1.9. AST 11, ALT 34, alkaline phosphatase is 135. Albumin is 2.8. MICROBIOLOGY: Blood culture has been negative. Urine culture has Klebsiella pneumoniae. Chest x-ray done today shows bilateral congestion and left lower lobe infiltrate. IMPRESSION AND PLAN: Cardiomyopathy, mostly diastolic dysfunction with severe pulmonary hypertension , diabetes, also has hypertension, morbid obesity, sleep apnea syndrome, lumbar radiculopathy, may grant ve pneumonia. Not very compliant with the medication, followup and CPAP/BiPAP. Spoke to nursing sta ff. Will place her on BiPAP 10/6 with 35% oxygen while sleeping and/or respiratory distress. Keep h ead elevated at 45 degrees. Diuretics, afterload reducers, antibiotics. I spoke to patient's son at bedside. All the questions answered. Also has a urinary tract infection. Follow up ABG, chest x-r ay, CBC, CMP in the morning. CRITICAL CARE TIME: More than 35 minutes. Thank you, and will follow with you. Belle Lopez MD cc: [phone] TT: 10/14/2016 14:56:20 Confirmation # [id number] Dictation # [id number] mn
--- NOTE | 2016-10-14 15:54 | PN ---
DATE: 10/13/2016 The patient is a 71-year-old female, intubated. She is on the vent. Comfortable. She does awake so metimes. She is still sedated but no distress. She is on 40% FIO2 and CPAP with pressure support of 7. Seems doing okay. Does not seem to be in any distress. PHYSICAL EXAMINATION: VITAL SIGNS: Temperature 97.8, heart rate in the 60s, blood pressure 129/51, respiration 18, saturat ion 98%. HEAD AND NECK: Normal. No JVD. CHEST: A few rhonchi. CARDIAC: First and second sounds are normal. ABDOMEN: Obese, soft, nontender. EXTREMITIES: Mild edema. NEUROLOGIC: She is sedated, poorly responsive. LABORATORY DATA: White count 9.7, hemoglobin 9.3, hematocrit 28.8, platelets are 273. Chemistry rm ws sodium 131, potassium 4.3, chloride 104, bicarbonate 16, BUN 51, creatinine 1.6, blood sugar is 37 3 and hemoglobin A1c is 7.9. Calcium 7.7, phosphorus 4.6. Her liver enzymes otherwise is normal exc ept alkaline phosphatase 163. LDL is 95, triglycerides are 109. IMPRESSION AND PLAN: 1. Acute respiratory failure associated with bradycardia, congestive heart failure as per x-ray and CT scan, bilateral infiltrates. The patient currently on ventilator. Seems doing better. She is ge tting IV fluid and seems stable on that. Saturation seems good on 40%. I will continue follow up wi th the patient navigator and monitor her condition. 2. Diabetes. Continue insulin coverage. 3. Chronic obstructive pulmonary disease. Continue bronchodilators. She is getting Solu-Medrol as per patient navigator. Continue current medications. ____ Continue Levemir, insulin coverage regular insulin. We will increase her insulin coverage to hi gher level. Will continue Levemir; we may increase it also to a higher level. Will make it 15 twice a day for now. ____ 4. Symptomatic bradycardia. According to the last note, patient was advised not to take any Cardize m or any beta blockers like metoprolol; however, blood pressure medication was including metoprolol. I will explained that to the son and both of them not to give any beta blockers because of the sympt omatic bradycardia. Whether this is the etiology of her respiratory failure or not is unclear, or as sociated congestive heart failure caused the whole scenario is still unclear. 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 Continue current treatment. Will follow up with the counter dish carrier, patient navigator, ID consult (Dr. Leyva). Continue gastroint estinal and deep venous thrombosis prophylaxis. Osmar Ponce MD cc: [phone] TT: 10/14/2016 12:44:51 Confirmation # [id number] Dictation # [id number] nh 10/14/2016 14:54:17
[2016-10-14] MEDS ORDERED: Insulin Detemir 100 units/ml Vial (Levemir) SC SCH (18:00)
--- NOTE | 2016-10-14 18:49 | CARD ---
APPROVED REPORT EKG Measurement Heart [id number] <Conclusion> Normal sinus rhythm Low voltage QRS Borderline ECG
--- NOTE | 2016-10-14 21:53 | CARD ---
APPROVED REPORT EKG Measurement Heart [id number] <Conclusion> Junctional bradycardia Cannot rule out Anterior infarct, age undetermined Abnormal ECG
[2016-10-15] MEDS: Albuterol 0.083% Inhal Sol (2.5 mg/3 mL) UD IH SCH ×4 (03:54→20:26)
[2016-10-15 05:50] LABS: ARTERIAL BLOOD GAS HCO3 18.9 mmol/L (21-28); ARTERIAL BLOOD GAS O2 CAPACITY 12.2 mL/dl (16-24); ARTERIAL BLOOD GAS O2 CONTENT 11.9 ML/dl (15-23); ARTERIAL BLOOD GAS PH 7.34 (7.35-7.45); ARTERIAL BLOOD HGB O2 SAT 95.1 % (95.0-98.0); CARBOXYHEMOGLOBIN 1.5 % (0.5-1.5); HHB 2.6 % (0-5); METHEMOGLOBIN 0.8 % (0.0-3.0)
[2016-10-15 06:40] LABS: BASO # 0.01 K/mm3 (0.0-2.0); BASO % 0.1 % (0.0-3.0); GRAN # 8.61 (1.4-6.5); GRAN % 94.6 % (50.0-68.0); HEMATOCRIT 27.6 % (36.0-48.0); LYMPH # 0.2 (1.2-3.4); LYMPH % 2.3 % (22.0-35.0); MEAN CELL VOLUME 84.9 fL (80.0-105.0); MEAN CORPUSCULAR HEMOGLOBIN 26.8 pg (25.0-35.0); MEAN CORPUSCULAR HGB CONC 31.5 g/dl (31.0-37.0); MEAN PLATELET VOLUME 10.9 fl (7.0-11.0); MONO # 0.3 (0.1-0.6); PLATELET COUNT 218 10^3/uL (120.0-450.0); RED CELL DISTRIBUTION WIDTH 15.2 % (11.5-14.5); WHITE BLOOD COUNT 9.1 10^3/ul (4.5-11.0)
[2016-10-15 07:01] LABS: BILIRUBIN,TOTAL 0.5 mg/dL (0.2-1.3); CALCIUM 9.3 mg/dL (8.4-10.5); MAGNESIUM 2.1 mg/dL (1.7-2.2); PHOSPHOROUS 4.1 mg/dL (2.5-4.5); POTASSIUM 4.6 mmol/L (3.6-5.0); TOTAL PROTEIN 6.9 g/dL (5.8-8.3)
[2016-10-15 07:49] LABS: ADD MANUAL DIFF? NO
[2016-10-15] MEDS: Insulin Reg-HIGH-Coverage SC SCH ×4 (07:56→22:34)
--- NOTE | 2016-10-15 08:38 | RAD ---
HISTORY: intubated, f/u COMPARISON: 10/14/2016 FINDINGS: LUNGS: There is worsening multifocal airspace disease in the right lung and patchy airspace disease in the left lung. There is diffuse haziness in the right lung. Stop PLEURA: No significant pleural effusion identified, no pneumothorax apparent. CARDIOVASCULAR: There is mild cardiomegaly. OSSEOUS STRUCTURES: No significant abnormalities. VISUALIZED UPPER ABDOMEN: Normal. OTHER FINDINGS: None. IMPRESSION: Findings may represent congestive heart failure with layering pleural effusions, worse on the right. Superimposed right lower lobe atelectasis/ pneumonia. Follow-up is advised.
--- NOTE | 2016-10-15 09:11 | PN ---
DATE: 10/14/2016 A 71-year-old female came in with respiratory failure. Today, she is off the vent. She still has so me distress. Her CPAP pressure seems to make her uncomfortable; however, after talking to her, she k ept it. She does not have any pain. She is awake and alert. PHYSICAL EXAMINATION: VITAL SIGNS: Temperature 98, heart rate 82, blood pressure 151/58, respiration 19, saturation 95%. HEAD AND NECK: Normal. No JVD, no thyromegaly. CHEST: Clear, good air entry. CARDIAC: First and second sounds are normal. ABDOMEN: Soft, obese, nontender. EXTREMITIES: Mild edema. NEUROLOGIC: She moves all extremities. LABORATORY DATA: On 10/14/2016: Her white 9.2, hemoglobin 8.2, hematocrit 25.2, platelets 201. Run harry high blood sugar in the ____. Her chemistry shows sodium 136, potassium 4.7, chloride 109, bica rbonate 18, BUN 48, creatinine 1.4, blood sugar 164, calcium 8.6, phosphorus 4.9. ____ is 139, album in 2.8 which is low. Laboratory study including also a chest x-ray which shows severe vascular congestion and left lower l obe infiltrates. IMPRESSION AND PLAN: 1. Status post respiratory failure, extubation. Will hold off on IV fluid because the patient's blo od pressure is stable. She does complain of some mild dyspnea. Congestive heart failure on chest x- ray plus and filtrates, possible pneumonia, bronchitis or aspiration pneumonia. Will continue curren t treatment. Continue BiPAP. Will hold off on IV fluid for now. Will discuss further with the card iologist. Maybe will consider Lasix. Will discuss that with employee welfare manager. Echocardiography with in ferior vena cava evaluation may help ____ the status of the patient, plus repeat BMP tomorrow, and co ntinue current treatment. 2. Cardiac arrhythmia, history of sinus bradycardia. Right now she is stable. No cardiac arrhythmi a. Will continue to follow. The patient's family - sons and the patient himself - before and now, a dvised not to use any beta blockers except if cardiology changed. I spoke with the employee welfare manager. No beta luis, no Cardizem to be used for her cardiac conditions because of her high sensitivity. Co ntinue monitoring. 3. Aspiration pneumonia. Continue IV antibiotic. 4. Diabetes. Resume insulin. Increase the Levemir. She is getting 10 units b.i.d. plus insulin co verage high. Will follow up on daily basis. The patient currently stable. Continue nebulizer treatment, gastrointestinal and deep venous thrombo sis prophylaxis, and Solu-Medrol - will go down on Solu-Medrol. Osmar Ponce MD cc: [phone] TT: 10/15/2016 09:07:25 Confirmation # [id number] Dictation # [id number] mn
[2016-10-15] MEDS: MethylPREDNISolone 40 mg Vial IVP SCH ×2 (09:41→22:37)
[2016-10-15] MEDS: Meropenem 1g/NS 100mL IVPB 1 GM/100 ML PIGGYBACK IVPB SCH ×2 (09:42→22:35)
[2016-10-15] MEDS: Insulin Detemir 100 units/ml Vial (Levemir) SC SCH ×2 (09:43→18:10)
[2016-10-15] MEDS: Enoxaparin 40 mg Syringe SC SCH (09:43)
[2016-10-15] MEDS ORDERED: Albuterol 0.083% Inhal Sol (2.5 mg/3 mL) UD IH PRN (10:10)
--- NOTE | 2016-10-15 11:59 | PN ---
DATE: 10/15/2016 REFERRING PHYSICIAN: Dr. Ponce. SUBJECTIVE: She is on the BiPAP. Night was unremarkable. Fully awake and alert. Son is at bedside . Tried to take off BiPAP this morning, she desaturated to 92. Has some cough and sputum production . No nausea, no vomiting, no diarrhea. Does have leg swelling. OBJECTIVE: GENERAL: On BiPAP. VITAL SIGNS: Temp is 98, heart is 106, respiratory rate is 29, blood pressure 176/65, pulse ox 94% o n BiPAP with 35% oxygen. HEENT: Moist mucous membranes. Crowded airway. Mallampati score is 4. NECK: Supple. No JVD. LUNGS: Have a few crackles and scattered rhonchi. HEART: S1 and S2. ABDOMEN: Soft, nontender. No organomegaly. EXTREMITIES: There is trace edema. NEUROLOGIC: Awake, alert, follows simple commands. MEDICATIONS: She is on albuterol-Atrovent nebulizer q. 6 hours, Ativan 0.5 mg q. 6 hours p.r.n., Cep acol lozenges q. 2 hours p.r.n., doxycycline 100 mg twice a day, insulin coverage, Levemir 10 units s ubQ twice a day, Lovenox 40 mg daily, meropenem 1 g q. 12 hours, Protonix 40 mg daily, Solu-Medrol 40 mg q. 12 hours, Tessalon Perles 100 mg 3 times a day. LABORATORY DATA: Shows hemoglobin 8.7, hematocrit 27.6, WBC 9.1, platelet count is 218. Blood gases show pH 7.34, pCO2 35, pO2 75. Sodium 143, potassium 4.6, chloride 114, bicarbonate 18, BUN 37, cre atinine 1.1, glucose is 155, calcium 9.3, phosphorus 4.1, magnesium 2.1, AST 18, ALT 32, alk phos s 1 39, albumin is 3.4. TSH is 0.57. Urine culture had Klebsiella pneumoniae. Chest x-ray done this mo rning shows congestive heart failure, pleural effusion, also has right lower lobe probably pneumonia. IMPRESSION AND PLAN: Cardiomyopathy with diastolic dysfunction and severe pulmonary hypertension, di abetes, hypertension, morbid obesity, sleep apnea syndrome, lumbar radiculopathy, may have pneumonia. I spoke to patient's son at bedside. All the questions answered. The patient is noncompliant with the CPAP/BiPAP as an outpatient, apparently does not have the device ____. Once discharged, ____ ou tpatient attended half apnea, half CPAP study to qualify for the CPAP/BiPAP. The patient and family agree with the plan. For now, spoke to wool shearer, Dr. Last. Also, spoke to the nursing staff to take off the BiPAP, place her on nasal cannula, get her out of bed to chair. Continue diuretics, afterload senior telecommunications specialist. Continue antibiotics for pneumonia and urinary tract infection. Gastric prophyla xis. Deep vein thrombosis prophylaxis. Follow up ABG, chest x-ray, CBC, CMP in the morning. Critical care time spent more than 35 minutes. We will follow with you. Belle Lopez MD cc: [phone] TT: 10/15/2016 11:58:15 Confirmation # [id number] Dictation # [id number] tn
--- NOTE | 2016-10-15 12:38 | PN ---
DATE: 10/15/2016 The patient seen and examined at bedside. She is comfortable. She spent most of the time today on BiPAP. However, is able to take a break from BiPAP and tolerate oral nutrition. She reports that her breathing is substantially better. PHYSICAL EXAMINATION: VITAL SIGNS: Heart rate 92, oxygen saturation 95% on nasal cannula (5 liters per minute), blood pressure 167/68, respiratory rate 19-22. HEAD AND NECK: Atraumatic. LUNGS: Few crackles bilaterally. HEART: Regular rate and rhythm. S1, S2 distant. ABDOMEN: Soft, nontender, nondistended. MUSCULOSKELETAL: Trace bilateral pedal and ankle edema. NEUROLOGIC: The patient moves all extremities spontaneously. SKIN: Moist. PSYCHIATRIC: The patient is alert and oriented x 3. LABORATORIES: Sodium 143, potassium 4.6, chloride 114, carbon dioxide 18, BUN 37, creatinine 1.1 down from 1.4, glucose 155. TSH 0.57. WBC 9.1, hemoglobin 8.7, platelet count 218. Blood gas today 7.34/35/75 on 35% FiO2. Lactate as of 3 days ago 1.1. MEDICATIONS: Albuterol every 6 hours, doxycycline, Tessalon Perles, Lovenox 40 mg subQ daily, Lasix 60 mg IV once, Levemir 10 units subQ b.i.d., regular insulin sliding scale high protocol, Ativan p.r.n., meropenem, Solu-Medrol 20 mg IV q. 12. ASSESSMENT AND PLAN: This is a 71-year-old lady who presented with hypoxemic respiratory failure secondary to congestive heart failure. Today's echocardiogram official report is pending. However, preliminarily, overall ejection fraction decreased. Bedside echocardiogram performed by fluid dynamicist revealed inferior vena cava more than 2 cm and not collapsible. Thoracal ultrasound also revealed multiple B lines and chest x-ray showed substantial vascular congestion. Procalcitonin is pending. The patient does not have leukocytosis and afebrile. However, possibility of infectious etiology cannot be ruled out with certainty and patient continued on antibiotics. Meanwhile, we will continue with aggressive diuresis and we will aim at fluid balance of - 1 liter today. Of note, patient's troponin x 2 negative. The patient initially was admitted for symptomatic bradycardia, which resolved. We will continue to target euvolemia, euglycemia, normothermia and oxygen saturation more than 90%. We will continue with deep venous thrombosis and gastrointestinal prophylaxis. I will touch base with cardiology service about the echo findings to see if this is new finding or not. If it is new finding, consideration might be given to cardiac catheterization and optimization of cardiac regimen. Meanwhile, patient was successfully extubated yesterday and doing pretty well. She tolerates oral nutrition. Her renal function substantially improved and she is making good urine. In fact, she was negative more than 400 mL over the last 12 hours. We will continue with aspiration precaution. ccm time 40 min Raleigh Last MD cc: [id number] TT: 10/15/2016 12:37:31 Confirmation # [id number] Dictation # [id number] MTDD
--- NOTE | 2016-10-15 13:49 | PN ---
DATE: 10/15/2016 The patient is in bed, seen in 129, bed 5. PHYSICAL EXAMINATION: VITAL SIGNS: The patient's temperature is 98, blood pressure is 160/60, respiratory rate of 23, a he art rate of 107. HEENT: Unremarkable. NECK: Supple. LUNGS: Have decreased breath sounds. HEART: Normal S1, S2. ABDOMEN: Soft, nontender. LABORATORY EXAMINATION: Reveals a white count of 9.1, hemoglobin of 8, platelets of 218. Chemistrie s reveals the BUN of 37, creatinine of 1.1. Procalcitonin is 5.52. Urinalysis is noted. Serology i s noted. Urine culture is Klebsiella pneumoniae and it is ESBL. Review of orders reveals the patient to be on doxycycline and meropenem and Solu-Medrol. Chest x-ray : Worsening multifocal airspace disease is noted. Dr. Raleigh Last's note is reviewed. Dr. Micheal lopez's note is reviewed. ASSESSMENT AND PLAN: A 71-year-old female with severe sepsis, ventilator dependent respiratory failu re, acute renal failure, bilateral lower lobe community-acquired pneumonia. Presenting with an exten ded-spectrum beta-lactamase Klebsiella in the urine. Currently on doxycycline and meropenem, day #2. Would complete 4-7 days. The patient was switched over to BiPAP. Will follow closely with you. L yme disease serology was negative. White count is normal. The patient has been afebrile. Cultures thus far, except for the Klebsiella in the urine, the blood cultures are no growth, sputum cultures a re pending. The patient with a procalcitonin that is 5.52. We will repeat the procalcitonin and fol low with you. Saturnino Leyva MD cc: [phone] TT: 10/15/2016 13:48:32 Confirmation # [id number] Dictation # [id number]
[2016-10-15] MEDS ORDERED: Albuterol 0.083% Inhal Sol (2.5 mg/3 mL) UD IH SCH (14:00)
--- NOTE | 2016-10-15 15:23 | PN ---
DATE: 10/15/2016 REASON FOR CONSULTATION AND FOLLOWUP: Bradycardia, hypotension, respiratory failure, status post ext ubated. BRIEF CLINICAL HISTORY: This is a 71-year-old female with a past medical history significant for britton ttle diabetes, hypertension, hyperlipidemia; very sensitive to beta luis and Cardizem and digoxin - gets junctional bradycardia and severe hypotension and bradycardia. This is the third admission wi th the patient admitted with bradycardia. Last 2 times, patient was on digoxin as well as Cardizem. Requiring temporary pacemaker. This time, patient came in. The and the son say that the pa monse is having up and down blood pressures so took extra pills. Brought here with junctional milagro requiring 24 hours of dopamine. Since then, the patient is off dopamine. Heart is well controlled. Status post intubated, now successfully extubated. Complained of hard of breathing but denies any c hest pain. PHYSICAL EXAMINATION: VITAL SIGNS: Temperature afebrile, heart rate 92, blood pressure 167/68. HEENT: PERRLA. Extraocular muscles intact. NECK: Supple. No carotid bruits. No thyromegaly. CHEST: Clear to auscultation. HEART: S1, S2 regular. ABDOMEN: Soft. EXTREMITIES: Clubbing and cyanosis negative. BLOOD WORKUP: WBC 9.1, hemoglobin 8.7, hematocrit 27.6, platelet count 218. Sodium 140, potassium 4 .____, chloride 114, carbon dioxide 18, anion gap of ____, BUN 37, creatinine 1.1. IMPRESSION: Diabetes, hypertension, hyperlipidemia, brittle diabetes, very sensitive to beta luis and Cardizem and digoxin. THE PATIENT SHOULD NOT BE PLACED AGAIN ON BETA LUIS, CARDIZEM OR DIGOX IN. Status post respiratory failure, diabetes, obesity, status post cardiac catheterization that rev ealed nonobstructive coronary artery disease limited to obtuse marginal 2. RECOMMENDATION. Follow up echo to assess LV function. Off dopamine. Heart rate is well controlled, normal sinus to sinus tachycardia. Avoid large dose of beta luis, avoid Cardizem, avoid digoxin. If the patient becomes tachycardic, will continue very low dose as possible beta luis can be con sidered, but avoid large doses. Also consideration, will discuss if patient is difficult to manage, heart rate faster, then consider implantation of permanent pacemaker and beta luis. Echocardiogra phy done yesterday that shows consistent with IHSS. EF is within the normal limit. Mild subaortic v alvular aortic stenosis, mild to moderate mitral regurgitation, mild tricuspid regurgitation, moderat e pulmonary hypertension, RV systolic pressure 59. Continue antibiotic, continue treatment. Continu e DVT prophylaxis. Will follow with you. Thank you, Dr. Ponce, for providing the opportunity in taking care of this patient. Belle Mar MD cc: [id number] TT: 10/15/2016 15:22:29 Confirmation # [id number] Dictation # [id number] mn
[2016-10-16] MEDS: Albuterol 0.083% Inhal Sol (2.5 mg/3 mL) UD IH SCH ×4 (02:51→19:34)
[2016-10-16 05:57] LABS: ADD MANUAL DIFF? NO
[2016-10-16 06:04] LABS: GRAN % 93.3 % (50.0-68.0); HEMATOCRIT 27.3 % (36.0-48.0); LYMPH # 0.2 (1.2-3.4); LYMPH % 2.4 % (22.0-35.0); MEAN CELL VOLUME 85.3 fL (80.0-105.0); MEAN CORPUSCULAR HEMOGLOBIN 27.5 pg (25.0-35.0); MEAN CORPUSCULAR HGB CONC 32.2 g/dl (31.0-37.0); MEAN PLATELET VOLUME 11.1 fl (7.0-11.0); MONO # 0.4 (0.1-0.6); MONO % 4.3 % (1.0-6.0); PLATELET COUNT 215 10^3/uL (120.0-450.0); RED CELL DISTRIBUTION WIDTH 15.3 % (11.5-14.5); WHITE BLOOD COUNT 8.4 10^3/ul (4.5-11.0)
[2016-10-16 06:30] LABS: ALB/GLOB RATIO 0.9 (1.1-1.8); BILIRUBIN,TOTAL 0.5 mg/dL (0.2-1.3); CALCIUM 9.3 mg/dL (8.4-10.5); MAGNESIUM 1.9 mg/dL (1.7-2.2); PHOSPHOROUS 3.3 mg/dL (2.5-4.5); POTASSIUM 4.1 mmol/L (3.6-5.0); TOTAL PROTEIN 6.8 g/dL (5.8-8.3)
[2016-10-16] MEDS: Pantoprazole 40 mg EC Tab PO SCH (08:17)
[2016-10-16] MEDS: Insulin Reg-HIGH-Coverage SC SCH ×4 (08:18→22:47)
--- NOTE | 2016-10-16 08:52 | PN ---
DATE: 10/16/2016 The patient is in bed, in no acute distress, nontoxic. PHYSICAL EXAMINATION: VITAL SIGNS: Temperature is 99, blood pressure is 150/60, respiratory rate of 21. The patient is on BiPAP. HEENT: Unremarkable. NECK: Supple. LUNGS: Have decreased breath sounds. HEART: Normal S1, S2. ABDOMEN: Soft, nontender. LABORATORY DATA: White count of 8.4, hemoglobin of 8, platelets of 215. BUN of 40, creatinine of 1. 1. The procalcitonin is 3.49; from yesterday, it was 5.52. Microbiology reveals Klebsiella in the ur ine, which is ESBL. ASSESSMENT AND PLAN: A 71-year-old female with severe sepsis. The patient was intubated, now on BiP AP, and with severe sepsis with bilateral lower lobe bacterial, probably mild gram-positive cocci yesenia sunni gram-negative farooq pneumonia with an elevated procalcitonin and also with an extended-spectrum bet a-lactamase klebsiella in the urine. Currently day #3 of doxycycline and meropenem. I would complet e 4-7 days of antibiotics. Will repeat the procalcitonin and follow that. Review of the orders conf irms the patient to be on doxycycline and meropenem. Maybe will be able to change the doxycycline to p.o. Saturnino Leyva MD cc: [id number] TT: 10/16/2016 08:51:44 Confirmation # [id number] Dictation # [id number] mn
--- NOTE | 2016-10-16 09:24 | RAD ---
HISTORY: intubated, f/u COMPARISON: 10/15/2016 FINDINGS: LUNGS: Vascular congestion and perihilar infiltrates unchanged PLEURA: No significant pleural effusion identified, no pneumothorax apparent. CARDIOVASCULAR: Mild cardiomegaly OSSEOUS STRUCTURES: No significant abnormalities. VISUALIZED UPPER ABDOMEN: Normal. OTHER FINDINGS: None. IMPRESSION: Vascular congestion and perihilar infiltrates unchanged
--- NOTE | 2016-10-16 09:34 | PN ---
DATE: 10/16/2016 REASON FOR CONSULTATION AND FOLLOWUP: Bradycardia, hypotension, respiratory failure, intubated, now successfully extubated. BRIEF CLINICAL HISTORY: A 71-year-old obese female with past medical history significant for brittle diabetes, nonobstructive coronary artery disease, hyperlipidemia, hypertension, very sensitive to be ta luis, Cardizem and digoxin, gets junctional bradycardia. This is the third episode. The patie nt admitted here with significant bradycardia, junctional bradycardia, hypotension, requiring dopamin e. Previous 2 times, the patient needed external pacer as well after beta luis. Now, the patient successfully extubated. Denies any chest pain, shortness of breath, any palpitation. is at the bedside. PHYSICAL EXAMINATION: VITAL SIGNS: Temperature afebrile, heart rate 93, blood pressure 156/62. HEENT: PERRLA. Extraocular muscles intact. NECK: Supple. No carotid bruits. No thyromegaly. CHEST: Clear to auscultation. HEART: S1, S2 regular. ABDOMEN: Soft. EXTREMITIES: Clubbing and cyanosis negative. LABORATORY DATA: Blood workup as follows: WBC 8.4, hemoglobin 8.8, hematocrit 27.3, platelet count 215. Chemistry shows sodium 143, potassium 4.0, chloride 109, carbon dioxide 22, anion gap of 15, BU N 40, creatinine 1.1. IMPRESSION: Status post intubated, status post successfully extubated, obesity, chronic obstructive pulmonary disease, decompensated congestive heart failure secondary to diastolic dysfunction, status post cardiac catheterization, nonobstructive coronary artery disease, diabetes, hypertension, hyperli pidemia. Last catheterization revealed mild coronary artery disease, limited to obtuse marginal 1, v chicho sensitive to beta luis, Cardizem and digoxin. The patient goes into junctional bradycardia. This is the third admission with the same episode which completely resolved after holding the beta bl ocker. Last echo day before yesterday shows ejection fraction 73%. History of idiopathic hypertroph ic subaortic stenosis, moderate tricuspid regurgitation, moderate pulmonary hypertension, chronic obs tructive pulmonary disease, brittle diabetes. RECOMMENDATION: Continue treatment of COPD. Continue diuretics, continue DVT prophylaxis. Out of b ed to chair. Explained to the son, patient and that avoid beta luis. In the future if th e patient needs beta luis for medical reasons, consider pacemaker placement or if the patient deve lops tachycardia and difficult to control the heart rate. In this scenario, pacemaker can be conside red and then add on the beta luis. Without pacemaker, high dose of beta luis will be detriment al. Belle Mar MD cc: [id number] TT: 10/16/2016 09:34:30 Confirmation # [id number] Dictation # [id number] tn
[2016-10-16] MEDS: MethylPREDNISolone 40 mg Vial IVP SCH ×2 (09:41→22:16)
[2016-10-16] MEDS: Enoxaparin 40 mg Syringe SC SCH (09:41)
[2016-10-16] MEDS: Meropenem 1g/NS 100mL IVPB 1 GM/100 ML PIGGYBACK IVPB SCH ×2 (09:42→22:14)
[2016-10-16] MEDS: Insulin Detemir 100 units/ml Vial (Levemir) SC SCH ×2 (09:42→18:20)
--- NOTE | 2016-10-16 10:03 | PN ---
DATE: 10/16/2016 REFERRING PHYSICIAN: Dr. Ponce. SUBJECTIVE: She is lying in the bed, head at 45 degrees. Son is at bedside. Tolerated BiPAP well. Much more awake and alert. Still has a cough and sputum production. No nausea, no vomiting, no sam rrhea. No leg pain. Does have leg swelling. OBJECTIVE: GENERAL: No acute distress. VITAL SIGNS: Temperature is 99, heart rate is 93, respiratory rate is 20, blood pressure 156/62, pul se ox 94% on BiPAP with supplemental oxygen. HEENT: Moist mucous membranes. Crowded airway. NECK: Supple. No JVD. LUNGS: Have crackles at the bases with scattered rhonchi. HEART: S1, S2. ABDOMEN: Soft, nontender. No organomegaly. EXTREMITIES: Does have edema. NEUROLOGIC: Awake, alert, follows simple command. MEDICATIONS: She is on albuterol-Atrovent nebulizer q. 6 hours, Ativan 0.5 mg q. 6 hours p.r.n., Cep acol lozenges q. 12 hours p.r.n., doxycycline 100 mg twice a day, insulin coverage, Levemir 10 units subQ twice a day, Lovenox 40 mg daily, meropenem 1 g q. 12 hours, Protonix 40 mg daily, Solu-Medrol 2 0 mg q. 12 hours, Tessalon Perles 100 mg 3 times a day. LABORATORY DATA: Shows hemoglobin 8.3, hematocrit 27.3, WBC 8.4, platelet is 215. Sodium 143, potas sium 4.1, chloride 109, bicarbonate 22, BUN 40, creatinine 1.1, glucose 192, calcium 9.3, phosphorus 3.3, magnesium 1.9. AST 22, ALT 25, alkaline phosphatase is 137. ProBNP is ____. Albumin 3.3. IMPRESSION AND PLAN: Cardiomyopathy with diastolic dysfunction, severe pulmonary hypertension, diabe jackie, hypertension, morbid obesity, sleep apnea syndrome, lumbar radiculopathy, resolving pneumonia. From pulmonary point of view, doing okay. Encourage BiPAP use. Keep head at 45 degrees. Antibiotic s as per infectious diseases. Gastric prophylaxis. Deep venous thrombosis prophylaxis. I spoke to patient's son at bedside. All the questions answered. Follow up labs in the morning. Thank you, and will follow with you. Belle Lopez MD cc: [phone] TT: 10/16/2016 09:29:30 Confirmation # [id number] Dictation # [id number] mn
--- NOTE | 2016-10-16 10:48 | PN ---
DATE: 10/15/2016 The patient is on BiPAP machine. She seems a little bit desaturating when they take the mask off. T he patient has no chest pain. No other new complaints. She is awake, alert. PHYSICAL EXAMINATION: VITAL SIGNS: Temperature is 98, heart rate , respiratory rate 20, saturation 96%, her blood pre ssure stable at 169/70. HEAD AND NECK: Normal. No JVD, no thyromegaly. CHEST: Clear, but diminished breath sounds. CARDIAC: First sound, second sound normal. ABDOMEN: Soft, obese, nontender. EXTREMITIES: Mild edema. NEUROLOGIC: She moves all extremities. She is alert, awake. Difficulty to talk because of the mask . LABORATORY DATA: 10/15, white count 9.1, hemoglobin 8.7, hematocrit 27.6, platelets 218. Chemistry: Sodium 143, potassium 4.6, chloride 114, carbon dioxide 18, BUN 37, creatinine 1.1, blood sugar is 1 55. Liver functions test is noted normal except alkaline phosphatase 139. Blood sugar runs 170s. IMPRESSION AND PLAN: 1. Respiratory failure, probably secondary to congestive heart failure. Chest x-ray shows congestiv e heart failure. Repeat BMP is not done. We will do it again. The patient also has an inferior andrew a cava visualization by ultrasound, which shows non-collapsible, consistent with fluid status, conges tive heart failure and high pressure. Will hold off on IV fluid. Will give Lasix. Will discuss fur ther with cardiology about plan of management of this patient. She is off any beta blockers. We dorian l continue follow up on that. 2. Uncontrolled diabetes. Continue insulin as it is. Seems better, in the 100s. 3. Chronic obstructive pulmonary disease, morbid obesity, possible obstructive sleep apnea. Continu e BiPAP. Continue inhaled bronchodilators. 4. History of hypertension. We will follow up on that. 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 We will go ahead and give Lasix 40 IV x 1 and will discuss further with cardiology. 5. Pneumonia. Continue IV antibiotics. The patient currently getting doxycycline and meropenem. F or agitation, we are giving Ativan p.r.n. Continue current treatment. The patient was seen in ICU. Osmar Ponce MD cc: [phone] TT: 10/16/2016 10:48:00 Confirmation # [id number] Dictation # [id number]
--- NOTE | 2016-10-16 13:31 | CP.CCUPN ---
<Chavo Sandhu - Last Filed: 10/16/16 13:27> CCU Subjective - Physician Review Subjective (Free Text): 10/16/16 13:28 Patient seen and examined at bedside in the ICU. Today is hospital day 5. No acute events overnight. Patient wore BiPAP for 4-5 hours, tolerated well. This AM, satting well on Nasal Canula, resting comfortably in bed, denies any acute complaints. CCU Objective - Vital Signs / Intake & Output Vital Signs (Last 4 hours): Vital Signs Pulse Resp BP Pulse Ox 10/16/16 13:00 84 19 181/82 H 94 L 10/16/16 12:59 90 24 95 10/16/16 12:50 82 28 H 97 10/16/16 12:40 84 22 98 10/16/16 12:30 79 24 98 10/16/16 12:20 78 24 98 10/16/16 12:10 80 31 H 98 10/16/16 12:00 81 24 169/58 H 97 10/16/16 11:50 81 24 98 10/16/16 11:40 79 27 H 98 10/16/16 11:30 80 24 98 10/16/16 11:20 81 24 97 10/16/16 11:10 86 24 97 10/16/16 11:00 79 24 169/68 H 97 10/16/16 10:50 82 26 H 97 10/16/16 10:40 89 29 H 170/70 H 97 10/16/16 10:30 84 27 H 97 10/16/16 10:20 89 33 H 96 10/16/16 10:10 87 31 H 97 10/16/16 10:00 91 H 29 H 170/70 H 97 10/16/16 09:50 84 26 H 97 10/16/16 09:40 82 23 98 10/16/16 09:30 83 32 H 97 Intake and Output (Last 8hrs): Intake & Output 10/15/16 10/16/16 10/16/16 22:59 06:59 14:59 Intake Total 1096 500 Output Total 4657 1700 Balance -3561 -1200 Intake: IV 216 200 Right Forearm 216 200 Oral 880 300 Output: Urine 4657 1700 Urethral ([place]) 4657 1700 Stool 0 Other: Voiding Method Indwelling Catheter Indwelling Catheter # Bowel Movements 1 - Physical Exam Head: Positive for: Atraumatic, Normocephalic. Negative for: Abrasion, Laceration Pupils: Negative for: Pinpoint Extroacular Muscles: Positive for: EOMI Conjunctiva: Positive for: Normal. Negative for: Injected, Icteric Mouth: Positive for: Moist Mucous Membranes Nose (External): Positive for: Atraumatic. Negative for: Abrasion, Contusion, Laceration Neck: Positive for: Trachea Midline. Negative for: JVD Respiratory/Chest: Positive for: Good Air Exchange, Rhonchi (faint ronchi in bilateral bases). Negative for: Clear to Auscultation, Respiratory Distress, Accessory Muscle Use, Decreased Breath Sounds, Tachypneic Cardiovascular: Positive for: Regular Rate and Rhythm, Normal S1, S2. Negative for: Murmurs, Irregular Rhythm, Tachycardic, Bradycardic Abdomen: Positive for: Normal Bowel Sounds. Negative for: Distention (firm and obese, but not distended), Peritoneal Signs, Ostomy Tubes, Mass/Organomegaly Upper Extremity: Positive for: Normal Inspection, Normal ROM, NORMAL PULSES. Negative for: Cyanosis, Edema, Deformity Lower Extremity: Positive for: Edema (+1 pitting edema B/L), Normal ROM. Negative for: Normal Inspection, CALF TENDERNESS, Cyanosis, Erythema, Deformity Neurological: Positive for: GCS=15, Speech Normal, Motor Func Grossly Intact Skin: Positive for: Warm, Dry, Normal Color. Negative for: Rashes Psychiatric: Positive for: Alert (alert and awake, following commands and answering questions appropriately), Normal Affect, Normal Mood - Medications Active Medications: Active Medications Generic Name Dose Route Start Last Admin Trade Name Freq PRN Reason Stop Dose Admin Albuterol Sulfate 2.5 mg 10/15/16 14:00 10/16/16 13:10 Albuterol 0.083% Inhal Radha (2.5 Mg/3 Ml) Ud IH Not Given [id number] SONYA Benzocaine/Menthol 1 tahir 10/14/16 14:29 Cepacol Sore Throat MT Q2H PRN Sore Throat Benzonatate 100 mg 10/14/16 18:00 10/16/16 09:41 Tessalon Perles PO 100 mg TID SONYA Administration Doxycycline Hyclate 100 mg 10/16/16 10:00 10/16/16 09:41 Doryx PO 10/30/16 10:01 100 mg Q12 SONYA Administration Protocol Enoxaparin Sodium 40 mg 10/13/16 10:00 10/16/16 09:41 Lovenox SC 10/18/16 07:00 40 mg DAILY SONYA Administration Protocol Furosemide 40 mg 10/17/16 10:00 Lasix IVP DAILY SONYA Propofol 1,000 mg in 100 mls @ 3.13 mls/hr 10/12/16 19:08 10/14/16 10:40 Diprivan IV 0 mcg/kg/min .Q24H PRN 0 mls/hr TITRATE PER MD ORDER Titration Protocol 5 MCG/KG/MIN Meropenem 1g/NS 100mL IVPB 1 gm in 100 mls @ 100 mls/hr 10/14/16 14:00 09:42 Meropenem 1g/Ns 100ml Ivpb IVPB 10/21/16 14:01 100 mls/hr Q12 SONYA Administration Protocol Insulin Detemir 10 unit 10/13/16 18:00 10/16/16 09:42 Levemir SC 10 unit BID SONYA Administration Insulin Human Regular 0 units 10/13/16 11:30 10/16/16 12:23 Humulin R High SC 4 units ACHS SONYA Administration Protocol Lorazepam 0.5 mg 10/14/16 19:04 10/15/16 07:48 Ativan IVP 0.5 mg Q6H PRN Administration Anxiety Protocol Methylprednisolone 20 mg 10/15/16 11:58 10/16/16 09:41 Solu-Medrol IVP 20 mg Q12 SONYA Administration Pantoprazole Sodium 40 mg 10/16/16 07:30 10/16/16 08:17 Protonix Ec Tab PO 40 mg ACB SONYA Administration - Patient Studies Lab Studies: Microbiology Studies 10/14/16 11:00 Gram Stain - Final Sputum Sputum Culture - Final Yeast Species 10/12/16 19:10 Blood Culture - Preliminary Blood-Venous NO GROWTH AFTER 3 DAYS Lab Studies 10/16/16 10/16/16 10/16/16 Range/Units 11:32 08:12 05:35 WBC 8.4 (4.5-11.0) 10^3/ul RBC 3.20 L (3.5-6.1) 10^6/uL Hgb 8.8 L (12.0-16.0) gm/dL Hct 27.3 L (36.0-48.0) % MCV 85.3 (80.0-105.0) fL MCH 27.5 (25.0-35.0) pg MCHC 32.2 (31.0-37.0) g/dl RDW 15.3 H (11.5-14.5) % Plt Count 215 (120.0-450.0) 10^3/uL MPV 11.1 H (7.0-11.0) fl Gran % 93.3 H (50.0-68.0) % Lymph % (Auto) 2.4 L (22.0-35.0) % [place] % (Auto) 4.3 (1.0-6.0) % Eos % (Auto) 0.0 L (1.5-5.0) % Baso % (Auto) 0.0 (0.0-3.0) % Gran # 7.80 H (1.4-6.5) Lymph # 0.2 L (1.2-3.4) [place] # 0.4 (0.1-0.6) Eos # 0.0 (0.0-0.7) Baso # 0.00 (0.0-2.0) K/mm3 Sodium (132-148) mmol/L Potassium (3.6-5.0) mmol/L Chloride (95-110) mmol/L Carbon Dioxide (21-33) mmol/L Anion Gap (10-20) BUN (7-21) mg/dL Creatinine (0.5-1.4) mg/dL Est GFR ( Amer) Est GFR (Non-Af Amer) POC Glucose (mg/dL) 208 H 218 H (65-110) mg/dL Random Glucose (70-110) mg/dL Calcium (8.4-10.5) mg/dL Phosphorus (2.5-4.5) mg/dL Magnesium (1.7-2.2) mg/dL Total Bilirubin (0.2-1.3) mg/dL AST (15-39) U/L ALT (7-56) U/L Alkaline Phosphatase (38-133) U/L NT-Pro-B Natriuret Pep (0-450) pg/mL Total Protein (5.8-8.3) g/dL Albumin (3.0-4.8) g/dL Globulin gm/dL Albumin/Globulin Ratio (1.1-1.8) Procalcitonin (0.19-0.49) NG/ML 10/16/16 10/15/16 10/15/16 Range/Units 05:35 22:19 17:53 WBC (4.5-11.0) 10^3/ul RBC (3.5-6.1) 10^6/uL Hgb (12.0-16.0) gm/dL Hct (36.0-48.0) % MCV (80.0-105.0) fL MCH (25.0-35.0) pg MCHC (31.0-37.0) g/dl RDW (11.5-14.5) % Plt Count (120.0-450.0) 10^3/uL MPV (7.0-11.0) fl Gran % (50.0-68.0) % Lymph % (Auto) (22.0-35.0) % [place] % (Auto) (1.0-6.0) % Eos % (Auto) (1.5-5.0) % Baso % (Auto) (0.0-3.0) % Gran # (1.4-6.5) Lymph # (1.2-3.4) [place] # (0.1-0.6) Eos # (0.0-0.7) Baso # (0.0-2.0) K/mm3 Sodium 143 (132-148) mmol/L Potassium 4.1 (3.6-5.0) mmol/L Chloride 109 (95-110) mmol/L Carbon Dioxide 22 (21-33) mmol/L Anion Gap 16 (10-20) BUN 40 H (7-21) mg/dL Creatinine 1.1 (0.5-1.4) mg/dL Est GFR ( Amer) 59 Est GFR (Non-Af Amer) 49 POC Glucose (mg/dL) 208 H 270 H (65-110) mg/dL Random Glucose 192 H (70-110) mg/dL Calcium 9.3 (8.4-10.5) mg/dL Phosphorus 3.3 (2.5-4.5) mg/dL Magnesium 1.9 (1.7-2.2) mg/dL Total Bilirubin 0.5 (0.2-1.3) mg/dL AST 22 (15-39) U/L ALT 25 (7-56) U/L Alkaline Phosphatase 137 H (38-133) U/L NT-Pro-B Natriuret Pep 95639 H (0-450) pg/mL Total Protein 6.8 (5.8-8.3) g/dL Albumin 3.3 (3.0-4.8) g/dL Globulin 3.5 gm/dL Albumin/Globulin Ratio 0.9 L (1.1-1.8) Procalcitonin (0.19-0.49) NG/ML 10/15/16 Range/Units 13:00 WBC (4.5-11.0) 10^3/ul RBC (3.5-6.1) 10^6/uL Hgb (12.0-16.0) gm/dL Hct (36.0-48.0) % MCV (80.0-105.0) fL MCH (25.0-35.0) pg MCHC (31.0-37.0) g/dl RDW (11.5-14.5) % Plt Count (120.0-450.0) 10^3/uL MPV (7.0-11.0) fl Gran % (50.0-68.0) % Lymph % (Auto) (22.0-35.0) % [place] % (Auto) (1.0-6.0) % Eos % (Auto) (1.5-5.0) % Baso % (Auto) (0.0-3.0) % Gran # (1.4-6.5) Lymph # (1.2-3.4) [place] # (0.1-0.6) Eos # (0.0-0.7) Baso # (0.0-2.0) K/mm3 Sodium (132-148) mmol/L Potassium (3.6-5.0) mmol/L Chloride (95-110) mmol/L Carbon Dioxide (21-33) mmol/L Anion Gap (10-20) BUN (7-21) mg/dL Creatinine (0.5-1.4) mg/dL Est GFR ( Amer) Est GFR (Non-Af Amer) POC Glucose (mg/dL) (65-110) mg/dL Random Glucose (70-110) mg/dL Calcium (8.4-10.5) mg/dL Phosphorus (2.5-4.5) mg/dL Magnesium (1.7-2.2) mg/dL Total Bilirubin (0.2-1.3) mg/dL AST (15-39) U/L ALT (7-56) U/L Alkaline Phosphatase (38-133) U/L NT-Pro-B Natriuret Pep (0-450) pg/mL Total Protein (5.8-8.3) g/dL Albumin (3.0-4.8) g/dL Globulin gm/dL Albumin/Globulin Ratio (1.1-1.8) Procalcitonin 3.49 H (0.19-0.49) NG/ML Laboratory Results - last 24 hr 10/15/16 10/15/16 10/15/16 13:00 17:53 22:19 WBC RBC Hgb Hct MCV MCH MCHC RDW Plt Count MPV Gran % Lymph % (Auto) [place] % (Auto) Eos % (Auto) Baso % (Auto) Gran # Lymph # [place] # Eos # Baso # Sodium Potassium Chloride Carbon Dioxide Anion Gap BUN Creatinine Est GFR ( Amer) Est GFR (Non-Af Amer) POC Glucose (mg/dL) 270 H 208 H Random Glucose Calcium Phosphorus Magnesium Total Bilirubin AST ALT Alkaline Phosphatase NT-Pro-B Natriuret Pep Total Protein Albumin Globulin Albumin/Globulin Ratio Procalcitonin 3.49 H 10/16/16 10/16/16 10/16/16 05:35 05:35 08:12 WBC 8.4 RBC 3.20 L Hgb 8.8 L Hct 27.3 L MCV 85.3 MCH 27.5 MCHC 32.2 RDW 15.3 H Plt Count 215 MPV 11.1 H Gran % 93.3 H Lymph % (Auto) 2.4 L [place] % (Auto) 4.3 Eos % (Auto) 0.0 L Baso % (Auto) 0.0 Gran # 7.80 H Lymph # 0.2 L [place] # 0.4 Eos # 0.0 Baso # 0.00 Sodium 143 Potassium 4.1 Chloride 109 Carbon Dioxide 22 Anion Gap 16 BUN 40 H Creatinine 1.1 Est GFR ( Amer) 59 Est GFR (Non-Af Amer) 49 POC Glucose (mg/dL) 218 H Random Glucose 192 H Calcium 9.3 Phosphorus 3.3 Magnesium 1.9 Total Bilirubin 0.5 AST 22 ALT 25 Alkaline Phosphatase 137 H NT-Pro-B Natriuret Pep 58990 H Total Protein 6.8 Albumin 3.3 Globulin 3.5 Albumin/Globulin Ratio 0.9 L Procalcitonin 10/16/16 11:32 WBC RBC Hgb Hct MCV MCH MCHC RDW Plt Count MPV Gran % Lymph % (Auto) [place] % (Auto) Eos % (Auto) Baso % (Auto) Gran # Lymph # [place] # Eos # Baso # Sodium Potassium Chloride Carbon Dioxide Anion Gap BUN Creatinine Est GFR ( Amer) Est GFR (Non-Af Amer) POC Glucose (mg/dL) 208 H Random Glucose Calcium Phosphorus Magnesium Total Bilirubin AST ALT Alkaline Phosphatase NT-Pro-B Natriuret Pep Total Protein Albumin Globulin Albumin/Globulin Ratio Procalcitonin Fingerstick Blood Sugar Results: 208 Review of Systems - Review of Systems Review of Systems: Denies chest pain, pain with inspiration, pain elsewhere, shortness of breath. 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 Patient is post-extubation day 2 , and is in normal sinus rhythm; stable for transfer to telemetry. Plan: Neuro: -awake and alert, following commands appropriately -maintain normothermia Pulm: -s/p extubation day 2, satting well on Nasal Canula during daytime and tolerating BiPAP well at night (for ISABELLE) -conservative O2 management, SaO2 > 90%, paO2 > 60 -Chest/Abd/Pelvis CT on admission notable for bilateral airspace disease greatest at bases, lower lobe consolidation suggestive of pneumonia -CXR today appears unchanged from yesterday, may be due to lag on Xrays as clinically lung sounds and O2 sats improved -Likely CHF component of shortness of breath, as appeared fluid overloaded on Xray yesterday, BNP [id number]; improved diuresis yesterday, put out > 4L after Lasix 60mg IV x1 -Pulm (Dr. Lopez) consulted, appreciate any recs Cardio -junctional bradycardia resolved, remains in NSR -HR and BP wnl, no need for pressors at this time -Cardio (Dr. Mar) on board, appreciate all recs; beta-blockers contraindicated for this patient moving forward -Echo in 05/30/16 notable for LVEF 66%, asymmetrical LVH, proximal septal thickening with IHSS pathology, trace AR, mild , moderate MR, mild-mod TR, IVC dilation (please see full reports for further details); repeat Echo 73.9 EF , small LV cavity, echo findings not consistent with hypertrophic cardiomyopathy , normal LV segmental wall motion, mild subvalvular aortic stenosis, mild to moderate MR, moderate TR, moderate pulm HTN GI: -CT chest/abd/pelvis, negative for acute abdominal or pelvic process, no diverticulitis or appendicitis -Liquid diet -Protonix for GI ppx Renal: -Cr 1.1, making clear yellow urine -put out >4L clear yellow urine after 60mg IV lasix x1, net negative fluid balance yesterday -monitor and replete electrolytes as needed -avoid nephrotoxic drugs where feasible -maintain euglycemia -ESBL Klebsiella in urine culture, On Merem and Doxy as per ID Heme: -Hgb stable, continue to monitor -Lovenox for DVT ppx ID: -WBCs 8.4, afebrile -ID (Dr. Leyva) consulted, appreciate all recs -Blood cultures negative at 24 hours, continue to monitor -ESBL Klebsiella in urine culture, On Merem and Doxy as per ID -Continue to monitor Endo: -continue fingersticks ACHS, levemir 10 units BID per Primary (Dr. Ponce), High -dose sliding scale for additional coverage -maintain euglycemia (BG 140-180) Dispo: ICU, pending transfer to Telemetry FEN: Liquids Access: Peripheral IV Consults: Cardio, Pulm, ID, IR Ppx: Protonix for GI, Lovenox for DVT Patient seen, reviewed, and discussed with attending, Dr. Last. - Date & Time Date: 10/16/16 Time: 13:49 <[place] Last - Last Filed: 10/16/16 16:19> CCU Objective - Vital Signs / Intake & Output Vital Signs (Last 4 hours): Vital Signs Pulse Resp BP Pulse Ox 10/16/16 13:00 84 19 181/82 H 94 L 10/16/16 12:59 90 24 95 10/16/16 12:50 82 28 H 97 10/16/16 12:40 84 22 98 10/16/16 12:30 79 24 98 10/16/16 12:20 78 24 98 10/16/16 12:10 80 31 H 98 Intake and Output (Last 8hrs): Intake & Output 10/16/16 10/16/16 10/16/16 06:59 14:59 22:59 Intake Total 500 200 Output Total 1700 2500 Balance -1200 -2300 Intake: IV 200 200 Right Forearm 200 200 Oral 300 Output: Urine 1700 2500 Urethral ([place]) 1700 2500 Other: Voiding Method Indwelling Catheter # Bowel Movements 1 - Medications Active Medications: Active Medications Generic Name Dose Route Start Last Admin Trade Name Freq PRN Reason Stop Dose Admin Albuterol Sulfate 2.5 mg 10/15/16 14:00 10/16/16 13:10 Albuterol 0.083% Inhal Radha (2.5 Mg/3 Ml) Ud IH Not Given [id number] SONYA Benzocaine/Menthol 1 tahir 10/14/16 14:29 Cepacol Sore Throat MT Q2H PRN Sore Throat Benzonatate 100 mg 10/14/16 18:00 10/16/16 14:26 Tessalon Perles PO 100 mg TID SONYA Administration Doxycycline Hyclate 100 mg 10/16/16 10:00 10/16/16 09:41 Doryx PO 10/30/16 10:01 100 mg Q12 SONYA Administration Protocol Enoxaparin Sodium 40 mg 10/13/16 10:00 10/16/16 09:41 Lovenox SC 10/18/16 07:00 40 mg DAILY SONYA Administration Protocol Furosemide 40 mg 10/17/16 10:00 Lasix IVP DAILY SONYA Propofol 1,000 mg in 100 mls @ 3.13 mls/hr 10/12/16 19:08 10/14/16 10:40 Diprivan IV 0 mcg/kg/min .Q24H PRN 0 mls/hr TITRATE PER MD ORDER Titration Protocol 5 MCG/KG/MIN Meropenem 1g/NS 100mL IVPB 1 gm in 100 mls @ 100 mls/hr 10/14/16 14:00 09:42 Meropenem 1g/Ns 100ml Ivpb IVPB 10/21/16 14:01 100 mls/hr Q12 SONYA Administration Protocol Insulin Detemir 10 unit 10/13/16 18:00 10/16/16 09:42 Levemir SC 10 unit BID SONYA Administration Insulin Human Regular 0 units 10/13/16 11:30 10/16/16 12:23 Humulin R High SC 4 units ACHS SONYA Administration Protocol Lorazepam 0.5 mg 10/14/16 19:04 10/15/16 07:48 Ativan IVP 0.5 mg Q6H PRN Administration Anxiety Protocol Methylprednisolone 20 mg 10/15/16 11:58 10/16/16 09:41 Solu-Medrol IVP 20 mg Q12 SONYA Administration Pantoprazole Sodium 40 mg 10/16/16 07:30 10/16/16 08:17 Protonix Ec Tab PO 40 mg ACB SONYA Administration - Patient Studies Lab Studies: Microbiology Studies 10/14/16 11:00 Gram Stain - Final Sputum Sputum Culture - Final Yeast Species 10/12/16 19:10 Blood Culture - Preliminary Blood-Venous NO GROWTH AFTER 3 DAYS Lab Studies 10/16/16 10/16/16 10/16/16 Range/Units 16:00 11:32 08:12 WBC (4.5-11.0) 10^3/ul RBC (3.5-6.1) 10^6/uL Hgb (12.0-16.0) gm/dL Hct (36.0-48.0) % MCV (80.0-105.0) fL MCH (25.0-35.0) pg MCHC (31.0-37.0) g/dl RDW (11.5-14.5) % Plt Count (120.0-450.0) 10^3/uL MPV (7.0-11.0) fl Gran % (50.0-68.0) % Lymph % (Auto) (22.0-35.0) % [place] % (Auto) (1.0-6.0) % Eos % (Auto) (1.5-5.0) % Baso % (Auto) (0.0-3.0) % Gran # (1.4-6.5) Lymph # (1.2-3.4) [place] # (0.1-0.6) Eos # (0.0-0.7) Baso # (0.0-2.0) K/mm3 Sodium (132-148) mmol/L Potassium (3.6-5.0) mmol/L Chloride (95-110) mmol/L Carbon Dioxide (21-33) mmol/L Anion Gap (10-20) BUN (7-21) mg/dL Creatinine (0.5-1.4) mg/dL Est GFR ( Amer) Est GFR (Non-Af Amer) POC Glucose (mg/dL) 191 H 208 H 218 H (65-110) mg/dL Random Glucose (70-110) mg/dL Calcium (8.4-10.5) mg/dL Phosphorus (2.5-4.5) mg/dL Magnesium (1.7-2.2) mg/dL Total Bilirubin (0.2-1.3) mg/dL AST (15-39) U/L ALT (7-56) U/L Alkaline Phosphatase (38-133) U/L NT-Pro-B Natriuret Pep (0-450) pg/mL Total Protein (5.8-8.3) g/dL Albumin (3.0-4.8) g/dL Globulin gm/dL Albumin/Globulin Ratio (1.1-1.8) Procalcitonin (0.19-0.49) NG/ML 10/16/16 10/16/16 10/15/16 Range/Units 05:35 05:35 22:19 WBC 8.4 (4.5-11.0) 10^3/ul RBC 3.20 L (3.5-6.1) 10^6/uL Hgb 8.8 L (12.0-16.0) gm/dL Hct 27.3 L (36.0-48.0) % MCV 85.3 (80.0-105.0) fL MCH 27.5 (25.0-35.0) pg MCHC 32.2 (31.0-37.0) g/dl RDW 15.3 H (11.5-14.5) % Plt Count 215 (120.0-450.0) 10^3/uL MPV 11.1 H (7.0-11.0) fl Gran % 93.3 H (50.0-68.0) % Lymph % (Auto) 2.4 L (22.0-35.0) % [place] % (Auto) 4.3 (1.0-6.0) % Eos % (Auto) 0.0 L (1.5-5.0) % Baso % (Auto) 0.0 (0.0-3.0) % Gran # 7.80 H (1.4-6.5) Lymph # 0.2 L (1.2-3.4) [place] # 0.4 (0.1-0.6) Eos # 0.0 (0.0-0.7) Baso # 0.00 (0.0-2.0) K/mm3 Sodium 143 (132-148) mmol/L Potassium 4.1 (3.6-5.0) mmol/L Chloride 109 (95-110) mmol/L Carbon Dioxide 22 (21-33) mmol/L Anion Gap 16 (10-20) BUN 40 H (7-21) mg/dL Creatinine 1.1 (0.5-1.4) mg/dL Est GFR ( Amer) 59 Est GFR (Non-Af Amer) 49 POC Glucose (mg/dL) 208 H (65-110) mg/dL Random Glucose 192 H (70-110) mg/dL Calcium 9.3 (8.4-10.5) mg/dL Phosphorus 3.3 (2.5-4.5) mg/dL Magnesium 1.9 (1.7-2.2) mg/dL Total Bilirubin 0.5 (0.2-1.3) mg/dL AST 22 (15-39) U/L ALT 25 (7-56) U/L Alkaline Phosphatase 137 H (38-133) U/L NT-Pro-B Natriuret Pep 16334 H (0-450) pg/mL Total Protein 6.8 (5.8-8.3) g/dL Albumin 3.3 (3.0-4.8) g/dL Globulin 3.5 gm/dL Albumin/Globulin Ratio 0.9 L (1.1-1.8) Procalcitonin (0.19-0.49) NG/ML 10/15/16 10/15/16 Range/Units 17:53 13:00 WBC (4.5-11.0) 10^3/ul RBC (3.5-6.1) 10^6/uL Hgb (12.0-16.0) gm/dL Hct (36.0-48.0) % MCV (80.0-105.0) fL MCH (25.0-35.0) pg MCHC (31.0-37.0) g/dl RDW (11.5-14.5) % Plt Count (120.0-450.0) 10^3/uL MPV (7.0-11.0) fl Gran % (50.0-68.0) % Lymph % (Auto) (22.0-35.0) % [place] % (Auto) (1.0-6.0) % Eos % (Auto) (1.5-5.0) % Baso % (Auto) (0.0-3.0) % Gran # (1.4-6.5) Lymph # (1.2-3.4) [place] # (0.1-0.6) Eos # (0.0-0.7) Baso # (0.0-2.0) K/mm3 Sodium (132-148) mmol/L Potassium (3.6-5.0) mmol/L Chloride (95-110) mmol/L Carbon Dioxide (21-33) mmol/L Anion Gap (10-20) BUN (7-21) mg/dL Creatinine (0.5-1.4) mg/dL Est GFR ( Amer) Est GFR (Non-Af Amer) POC Glucose (mg/dL) 270 H (65-110) mg/dL Random Glucose (70-110) mg/dL Calcium (8.4-10.5) mg/dL Phosphorus (2.5-4.5) mg/dL Magnesium (1.7-2.2) mg/dL Total Bilirubin (0.2-1.3) mg/dL AST (15-39) U/L ALT (7-56) U/L Alkaline Phosphatase (38-133) U/L NT-Pro-B Natriuret Pep (0-450) pg/mL Total Protein (5.8-8.3) g/dL Albumin (3.0-4.8) g/dL Globulin gm/dL Albumin/Globulin Ratio (1.1-1.8) Procalcitonin 3.49 H (0.19-0.49) NG/ML Laboratory Results - last 24 hr 10/15/16 10/15/16 10/15/16 13:00 17:53 22:19 WBC RBC Hgb Hct MCV MCH MCHC RDW Plt Count MPV Gran % Lymph % (Auto) [place] % (Auto) Eos % (Auto) Baso % (Auto) Gran # Lymph # [place] # Eos # Baso # Sodium Potassium Chloride Carbon Dioxide Anion Gap BUN Creatinine Est GFR ( Amer) Est GFR (Non-Af Amer) POC Glucose (mg/dL) 270 H 208 H Random Glucose Calcium Phosphorus Magnesium Total Bilirubin AST ALT Alkaline Phosphatase NT-Pro-B Natriuret Pep Total Protein Albumin Globulin Albumin/Globulin Ratio Procalcitonin 3.49 H 10/16/16 10/16/16 10/16/16 05:35 05:35 08:12 WBC 8.4 RBC 3.20 L Hgb 8.8 L Hct 27.3 L MCV 85.3 MCH 27.5 MCHC 32.2 RDW 15.3 H Plt Count 215 MPV 11.1 H Gran % 93.3 H Lymph % (Auto) 2.4 L [place] % (Auto) 4.3 Eos % (Auto) 0.0 L Baso % (Auto) 0.0 Gran # 7.80 H Lymph # 0.2 L [place] # 0.4 Eos # 0.0 Baso # 0.00 Sodium 143 Potassium 4.1 Chloride 109 Carbon Dioxide 22 Anion Gap 16 BUN 40 H Creatinine 1.1 Est GFR ( Amer) 59 Est GFR (Non-Af Amer) 49 POC Glucose (mg/dL) 218 H Random Glucose 192 H Calcium 9.3 Phosphorus 3.3 Magnesium 1.9 Total Bilirubin 0.5 AST 22 ALT 25 Alkaline Phosphatase 137 H NT-Pro-B Natriuret Pep 83524 H Total Protein 6.8 Albumin 3.3 Globulin 3.5 Albumin/Globulin Ratio 0.9 L Procalcitonin 10/16/16 10/16/16 11:32 16:00 WBC RBC Hgb Hct MCV MCH MCHC RDW Plt Count MPV Gran % Lymph % (Auto) [place] % (Auto) Eos % (Auto) Baso % (Auto) Gran # Lymph # [place] # Eos # Baso # Sodium Potassium Chloride Carbon Dioxide Anion Gap BUN Creatinine Est GFR ( Amer) Est GFR (Non-Af Amer) POC Glucose (mg/dL) 208 H 191 H Random Glucose Calcium Phosphorus Magnesium Total Bilirubin AST ALT Alkaline Phosphatase NT-Pro-B Natriuret Pep Total Protein Albumin Globulin Albumin/Globulin Ratio Procalcitonin Critical Care Progress Note - Nutrition Nutrition: Nutrition Category Date Time Status Liquid Diet [DIET] Diets 10/15/16 Lunch Ordered Addendum Addendum: 10/16/16 16:06 patient was seen and examined and discussed at bedside with Dr. Blandon. His note reflects my exam, assessment and plan, except as below. meds/Labs/ONE reviewed. 71 yo female with CHF and cardiogenic pulmonary edema now substantially improved , on 3L NC, no respiratory distress. ok to downgrade to tele ccm time 40 min
--- NOTE | 2016-10-16 22:38 | PN ---
DATE: 10/16/2016 The patient seems doing better, extubated. Diuresed very well with Lasix 40. She seems a lot better . The patient is being transferred to telemetry. PHYSICAL EXAMINATION: VITAL SIGNS: Temperature is 97.4, heart rate 72, blood pressure 169/58, respirations 24, saturation 98%. HEAD AND NECK: Normal. No JVD, no thyromegaly. CHEST: Clear, good entry. There are basal rales bilaterally. CARDIAC: First sound, second sound normal. ABDOMEN: Soft, obese, nontender. EXTREMITIES: No edema. NEUROLOGIC: Normal. LABORATORY STUDIES: White count 8.4, hemoglobin 8.8, hematocrit 27.3, platelets 215. Chemistry: So dium 143, potassium 4.1, chloride 109, bicarb 22, BUN 40, creatinine 1.1. Blood sugar is 192. Liver function test is normal. Alk phos 139 and proBNP is 12,400. IMPRESSION AND PLAN: Acute respiratory failure, status post extubation secondary to congestive heart failure, bradycardia, pneumonia. PLAN: 1. Continue IV meropenem, doxycycline. Continue Lasix. Seems doing well with Lasix and continue br onchodilators and steroids. The patient also getting BiPAP machine. We will continue that and follo w up clinically. 2. Diabetes. Continue insulin. We will increase the dose and will follow up clinically. 3. Hypertension. Resume Norvasc and Cozaar. 4. Congestive heart failure. Continue Lasix. Follow up clinically. 5. Morbid obesity, obstructive sleep apnea. Continue BiPAP. Discussed with the patient and the son in detail about medications, side effects and hypertension and sleep apnea. Osmar Ponce MD cc: [id number] TT: 10/16/2016 22:37:22 Confirmation # [id number] Dictation # [id number]
[2016-10-17] MEDS: Albuterol 0.083% Inhal Sol (2.5 mg/3 mL) UD IH SCH ×4 (01:29→20:45)
[2016-10-17 07:44] LABS: ADD MANUAL DIFF? NO
[2016-10-17 08:03] LABS: ALB/GLOB RATIO 0.9 (1.1-1.8); ALKALINE PHOSPHATASE 109 U/L (38-133); ALT/SGPT 32 U/L (7-56); AST/SGOT 16 U/L (15-39); BILIRUBIN,TOTAL 0.6 mg/dL (0.2-1.3); BLOOD UREA NITROGEN 42 mg/dL (7-21); CARBON DIOXIDE 28 mmol/L (21-33); CHLORIDE 104 mmol/L (98-107); GFR AFRICAN-AMERICAN > 60; GLUCOSE,RANDOM 229 mg/dL (70-110); GRAN # 5.25 (1.4-6.5); GRAN % 87.6 % (50.0-68.0); HEMATOCRIT 28.1 % (36.0-48.0); LYMPH # 0.3 (1.2-3.4); LYMPH % 5.2 % (22.0-35.0); MAGNESIUM 1.9 mg/dL (1.7-2.2); MEAN CELL VOLUME 85.2 fL (80.0-105.0); MEAN CORPUSCULAR HGB CONC 31.7 g/dl (31.0-37.0); MEAN PLATELET VOLUME 10.6 fl (7.0-11.0); MONO # 0.4 (0.1-0.6); MONO % 7.2 % (1.0-6.0); PHOSPHOROUS 3.7 mg/dL (2.5-4.5); PLATELET COUNT 219 10^3/uL (120.0-450.0); POTASSIUM 4.3 mmol/L (3.6-5.0); RED CELL DISTRIBUTION WIDTH 14.8 % (11.5-14.5); SODIUM 140 mmol/L (132-148); TOTAL PROTEIN 6.5 g/dL (5.8-8.3)
[2016-10-17] MEDS: Insulin Reg-HIGH-Coverage SC SCH ×4 (08:29→21:27)
[2016-10-17] MEDS: Pantoprazole 40 mg EC Tab PO SCH (08:30)
--- NOTE | 2016-10-17 09:42 | PN ---
DATE: 10/17/2016 The patient is in bed in no acute distress, nontoxic, no fevers and chills. PHYSICAL EXAMINATION: VITAL SIGNS: Temperature is 98, blood pressure is 150/50, respiratory rate of 16. HEENT: Unremarkable. NECK: Supple. LUNGS: Have decreased breath sounds. HEART: Normal S1, S2. ABDOMEN: Soft, nontender. LABORATORY EXAMINATION: Reveals a white count of 6, hemoglobin of 8, platelets of 219, BUN of 42, cr eatinine of 0.9 and procalcitonin is 3.49. Urinalysis is noted. Serology is negative. Microbiology reveals Klebsiella pneumoniae in the urine. The blood cultures are negative. The sputum culture grant s yeast. Review of the orders reveals the patient to be on p.o. doxycycline and IV meropenem. [facility] of the chest and CAT scan of the abdomen and pelvis which are reviewed. Kidney s are unremarkable on the CAT scan of the abdomen. Dr. Osmar Ponce's note is reviewed. Dr. Leland Last's note is reviewed. ASSESSMENT AND PLAN: A 71-year-old female with severe sepsis, was intubated, now comfortable with bi lateral lower lobe bacterial, probable gram-positive cocci, gram-negative farooq pneumonia and an elevat ed procalcitonin and extended spectrum beta-lactamase and Klebsiella in the urine, day #4 of doxycycl ine and meropenem with patient presenting also with bradycardia, arrhythmia and junctional bradycardi a secondary to beta luis and calcium channel blockers at home with a negative Lyme serology. I do ubt Lyme to be the cause of this with a negative serology and also extended spectrum beta-lactamase K lebsiella in the urine. The patient has a negative urinalysis and no urinary symptoms. We will disc ontinue it and today is day #4. We will discontinue the doxycycline and the meropenem and we will re peat a urine culture for purposes of being able to discontinue the isolation. The patient has had ad equate antibiotic therapy. We will follow with you. Saturnino Leyva MD cc: 350 TT: 10/17/2016 09:41:54 Confirmation # [id number] Dictation # [id number]
[2016-10-17] MEDS: Enoxaparin 40 mg Syringe SC SCH (10:06)
[2016-10-17] MEDS: MethylPREDNISolone 40 mg Vial IVP SCH ×2 (10:06→21:49)
[2016-10-17] MEDS: Insulin Detemir 100 units/ml Vial (Levemir) SC SCH ×2 (10:08→17:18)
[2016-10-17] MEDS: metOLazone 2.5 MG TAB PO SCH (10:26)
[2016-10-17] MEDS: Potassium Chloride 10 mEq ER Tab PO SCH (10:26)
--- NOTE | 2016-10-17 10:27 | PN ---
DATE: 10/17/2016 Room 270, bed 1. REASON FOR CONSULTATION AND FOLLOWUP: Bradycardia, hypotension, respiratory failure, intubated, now successfully extubated. HISTORY OF PRESENT ILLNESS: This is a 71-year-old female was admitted with significant bradycardia, junctional bradycardia, hypotension, requiring dopamine. The patient also developed respiratory dist ress and needed to be intubated. Now patient is extubated. The patient now in sinus rhythm around 8 0 minimum. The patient is very sensitive to beta blockers, Cardizem and digoxin. The family has bee n told to avoid all 3 types of groups of medication and this is the third episode with these medicati ons. The patient now lying flat in bed without any cardiac symptoms. PHYSICAL EXAMINATION: VITAL SIGNS: Blood pressure 152/52, respirations 20, pulse 81, temperature 97.4. HEAD: Normocephalic. EYES: Pupils normal. Conjunctivae slightly pale. NECK: JVP low. Carotid equal. THORAX: AP diameter normal. LUNGS: Basal rales. CARDIOVASCULAR: S1, S2. ABDOMEN: Soft, nontender, no organomegaly. Bowel sounds normal. EXTREMITIES: No clubbing, no cyanosis. LABORATORY DATA: WBC 6.0, hemoglobin 8.9, hematocrit 28.1, platelet 219. Sodium 140, potassium 4.3, BUN 42, creatinine 0.9. Calcium, phosphorus, magnesium, AST, ALT normal. Total protein and albumin normal. DIAGNOSES: Status post respiratory failure, successful extubation, chronic obstructive pulmonary dis ease exacerbation, decompensated congestive heart failure secondary to diastolic dysfunction, status post cardiac catheterization, nonobstructive coronary artery disease, diabetes, hypertension, hyperli pidemia. Very sensitive to beta luis, Cardizem and digoxin. The patient had 3 episodes of bradyc ardia with these medications and it completely resolved after the medication is stopped. Echo done o n this admission showed ejection fraction 73%. History of idiopathic hypertrophic subaortic stenosis , moderate tricuspid regurgitation, moderate pulmonary hypertension, chronic brittle diabetes. PLAN: To continue treatment for COPD, diuretics are continued, DVT prophylaxis continued. The patie nt's family has been explained about the 3 groups of medication. Chest x-ray on 10/16/2016 showed va scular congestion and perihilar infiltrate. PLAN: The patient is getting DuoNeb hand nebulizer therapy, Cozaar 100 mg p.o. daily. The patient w as getting furosemide 40 mg IV daily, we increased it to 40 mg IV b.i.d. because the chest x-ray show s congestion. Insulin ordered, Lovenox 40 subQ daily, amlodipine 10 mg p.o. daily, Solu-Medrol 20 mg IV q. 12 hours and we will follow. Belle Adame MD cc: 306 TT: 10/17/2016 10:27:00 Confirmation # [id number] Dictation # [id number] jn
--- NOTE | 2016-10-17 16:23 | PN ---
DATE: 10/17/2016 REFERRING PHYSICIAN: Dr. Ponce. SUBJECTIVE: She is lying in the bed, on nasal cannula oxygen, night was unremarkable, tolerated BiPA P well, feels better, decreased cough, decreased shortness of breath. No nausea, no vomiting, no sam rrhea, no abdominal pain. Has a trace leg swelling. OBJECTIVE: GENERAL: No acute distress. VITAL SIGNS: Temperature is 98, heart rate is 71, respiratory rate is 20, blood pressure 146/60, pu lse ox 95% on nasal cannula. HEENT: Moist mucous membranes. Small oral cavity. Crowded airway. NECK: Short, thick neck. LUNGS: Have a few crackles at the bases, scattered rhonchi. HEART: S1 and S2, sounds. ABDOMEN: Soft, nontender. No organomegaly. EXTREMITIES: Trace edema. NEUROLOGIC: Awake, alert, follows simple commands. MEDICATIONS: He is on albuterol-Atrovent nebulizer q. 6 hours, Ativan 0.5 mg q. 6 hours p.r.n. for anxiety, Cepacol lozenges q. 2 hours p.r.n., Cozaar 100 mg daily, Diprivan has been discontinued, pot assium 10 mEq daily, Lasix 40 mg twice a day, Levemir 10 units subQ twice a day, Lovenox 40 mg daily, Norvasc 10 mg daily, Protonix 40 mg daily, Solu-Medrol 20 mg q. 12 hours, Tessalon Perles 3 times a day, Zaroxolyn 2.5 mg daily. LABORATORY DATA: Shows hemoglobin 8.9, hematocrit 28.1, WBC 6.0, platelet count is 219. Sodium 140, potassium 4.3, chloride 104, bicarbonate 28, BUN 42, creatinine 0.9, glucose 229, calcium is 9.0, ph osphorous is 3.7, magnesium 1.9, AST 16, ALT 32, alkaline phosphatase is 109, albumin is 3.1. MICROBIOLOGY: Sputum had some yeast. Urine had klebsiella pneumoniae. IMPRESSION AND PLAN: Cardiomyopathy with diastolic dysfunction, severe pulmonary hypertension, diabe jackie, hypertension, morbid obesity, sleep apnea syndrome, lumbar radiculopathy, resolving pneumonia. Pulmonary point of view, doing okay. We will continue to encourage BiPAP use. Keep head elevated at 45 degree. Inhaled bronchodilator, antibiotics, diuretics. Gastric prophylaxis. Deep vein thrombo sis prophylaxis. Follow up labs in the morning. Out of bed to chair. Physical therapy. Will need again a repeat sleep study to qualify her for a CPAP. In the past she has been noncompliant ____ she understands the disease and willing to try again. Thank you and will follow with you. Belle Lopez MD cc: [phone] TT: 10/17/2016 16:23:09 Confirmation # [id number] Dictation # [id number] jn
[2016-10-18] MEDS: Albuterol 0.083% Inhal Sol (2.5 mg/3 mL) UD IH SCH ×4 (02:31→20:12)
[2016-10-18] MEDS: Insulin Reg-HIGH-Coverage SC SCH ×5 (07:51→23:55)
[2016-10-18] MEDS: Potassium Chloride 10 mEq ER Tab PO SCH (07:56)
[2016-10-18] MEDS: Pantoprazole 40 mg EC Tab PO SCH (07:56)
[2016-10-18 07:59] LABS: ADD MANUAL DIFF? NO
[2016-10-18 08:25] LABS: ALB/GLOB RATIO 0.9 (1.1-1.8); ALKALINE PHOSPHATASE 117 U/L (38-133); ALT/SGPT 26 U/L (7-56); AST/SGOT 19 U/L (15-39); BILIRUBIN,TOTAL 0.6 mg/dL (0.2-1.3); BLOOD UREA NITROGEN 40 mg/dL (7-21); CALCIUM 9.3 mg/dL (8.4-10.5); CARBON DIOXIDE 37 mmol/L (21-33); CHLORIDE 92 mmol/L (95-110); GFR AFRICAN-AMERICAN > 60; GLUCOSE,RANDOM 258 mg/dL (70-110); MAGNESIUM 1.7 mg/dL (1.7-2.2); POTASSIUM 4.6 mmol/L (3.6-5.0); SODIUM 135 mmol/L (132-148); TOTAL PROTEIN 6.9 g/dL (5.8-8.3)
[2016-10-18 09:11] LABS: BASO # 0.01 K/mm3 (0.0-2.0); BASO % 0.1 % (0.0-3.0); EOS % 0.1 % (1.5-5.0); GRAN # 6.16 (1.4-6.5); GRAN % 86.5 % (50.0-68.0); HEMATOCRIT 32.2 % (36.0-48.0); LYMPH # 0.5 (1.2-3.4); LYMPH % 7.4 % (22.0-35.0); MEAN CORPUSCULAR HEMOGLOBIN 27.4 pg (25.0-35.0); MEAN CORPUSCULAR HGB CONC 32.3 g/dl (31.0-37.0); MEAN PLATELET VOLUME 10.8 fl (7.0-11.0); MONO # 0.4 (0.1-0.6); MONO % 5.9 % (1.0-6.0); PLATELET COUNT 257 10^3/uL (120.0-450.0); RED CELL DISTRIBUTION WIDTH 14.3 % (11.5-14.5); WHITE BLOOD COUNT 7.1 10^3/ul (4.5-11.0)
[2016-10-18] MEDS: MethylPREDNISolone 40 mg Vial IVP SCH ×2 (11:30→21:56)
[2016-10-18] MEDS: metOLazone 2.5 MG TAB PO SCH (11:31)
[2016-10-18] MEDS: Insulin Detemir 100 units/ml Vial (Levemir) SC SCH ×2 (11:33→17:30)
--- NOTE | 2016-10-18 11:38 | PN ---
DATE: 10/18/2016 The patient is in bed in no acute distress, nontoxic. PHYSICAL EXAMINATION: VITAL SIGNS: Temperature is 98. Blood pressure is 130/40, respiratory rate of 18. HEENT: Unremarkable. NECK: Supple. LUNGS: Have decreased breath sounds. HEART: Normal S1, S2. ABDOMEN: Soft, nontender. No organomegaly, no rebound, no guarding, no masses. LABORATORY EXAMINATION: Reveals a white count of 7.1, hemoglobin of 10, platelets of 257. The chemi stries reveal the BUN of 40, creatinine of 0.9. Procalcitonin is noted and microbiology reveals Kleb siella in the urine. Review of the orders reveals the patient to be on Solu-Medrol, off of antibiotics. Dr. Lopez's note is reviewed, and Dr. Adame's note is reviewed. ASSESSMENT AND PLAN: This is a 71-year-old female with severe sepsis who is now comfortable, extubat ed, and the patient was intubated, bilateral lower lobe bacteria probable gram-positive cocci, probab le gram-negative farooq pneumonia with elevated procalcitonin with extended-spectrum beta-lactamase Kleb siella in the urine has completed antibiotic therapy of meropenem and doxycycline. Currently off of antibiotics, afebrile, and comfortable. Saturnino Leyva MD cc: 350 TT: 10/18/2016 11:38:02 Confirmation # [id number] Dictation # [id number] [email or web address]
--- NOTE | 2016-10-18 12:36 | PN ---
DATE: 10/18/2016 The patient is in room 270, bed 1. REASON FOR CONSULTATION AND FOLLOWUP: Bradycardia, hypotension, respiratory failure, was intubated, now successfully extubated. HISTORY OF PRESENT ILLNESS: A 71-year-old female who was admitted with significant bradycardia, which was junctional type, hypotension requiring dopamine. The patient also developed respiratory distress and needed to be intubated. Now, patient is extubated. The patient maintaining sinus rhythm. The patient is very sensitive to beta blockers, Cardizem and digoxin. Family has been told to avoid all these 3 types of groups of medicine. The patient had previously the same similar episodes, previously twice before it happened and the patient was on beta luis and she went into bradycardia, so patient should not be given these medications. The patient lying flat in bed without any chest pain, shortness of breath, palpitation. PHYSICAL EXAMINATION: VITAL SIGNS: Blood pressure 130/48, respirations 18, pulse 75, temperature 98.1. HEAD: Normocephalic. EYES: Pupils normal. Conjunctivae slightly pale. NECK: JVP low. Carotid equal. THORAX: AP diameter normal. LUNGS: Clear. CARDIOVASCULAR: S1, S2. ABDOMEN: Soft, no tenderness, no organomegaly. Bowel sounds normal. EXTREMITIES: No clubbing, no cyanosis. LABORATORIES: WBC 7.1, hemoglobin 10.4, hematocrit 32.2, platelets 257. Sodium 135, potassium 4.6, BUN 40, creatinine 0.9, random sugar 238. AST, ALT normal. Phosphorus, magnesium normal. Protein, albumin normal. DIAGNOSES: Status post respiratory failure, successful extubation, chronic obstructive pulmonary disease with exacerbation, decompensated congestive heart failure secondary to diastolic dysfunction, status post cardiac catheterization , nonobstructive coronary artery disease, diabetes, hypertension, hyperlipidemia , very sensitive to beta luis, Cardizem and digoxin. The patient had 3 previous episodes of bradycardia with these medications and patient and family were told that these medications cannot be prescribed to them. Echo done on this admission showed left ventricular ejection fraction 73%, history of idiopathic hypertrophic subaortic stenosis, moderate tricuspid regurgitation, moderate pulmonary hypertension, chronic brittle diabetes. PLAN: The patient on furosemide 40 IV b.i.d., potassium 10 mEq p.o. daily, amlodipine 10 mg daily, Protonix 40 mg daily, Solu-Medrol 20 mg IV q. 12 hours, Zaroxolyn 2.5 mg daily. Will follow with you. Belle Adame MD cc: 306 TT: 10/18/2016 12:35:00 Confirmation # [id number] Dictation # [id number] [id number]
--- NOTE | 2016-10-18 15:48 | PN ---
DATE: 10/18/2016 REFERRING PHYSICIAN: Dr. Ponce SUBJECTIVE: The patient is lying in the bed, head at 45 degrees, feels better, tolerated BiPAP well. Decreased cough, decreased shortness of breath. No nausea, no vomiting, no diarrhea. Still has le g swelling. Wants to use commode, get out of bed to a chair. OBJECTIVE: GENERAL: No acute distress. VITAL SIGNS: Temperature is 98, heart rate is 65, respiratory rate is 20, blood pressure 144/52, pul se ox 96% on nasal cannula. HEENT: Moist mucous membrane. Crowded airway. Mallampati score is 4. NECK: Supple, no JVD. Short, thick neck. LUNGS: Have a few crackles, scattered rhonchi. HEART: S1 and S2. ABDOMEN: Soft, nontender. No organomegaly. EXTREMITIES: Trace edema. NEUROLOGIC: Awake, alert, follows simple command. MEDICATIONS: She is on albuterol-Atrovent nebulizer q. 6 hours, Ativan 0.5 mg IV q. 6 hours, Cepacol lozenges q. 2 hours p.r.n., Cozaar 100 mg daily, Diprivan has been discontinued, insulin coverage, p otassium 10 mEq daily, Lasix 40 mg IV twice a day, Levemir 15 units subQ twice a day, Norvasc 10 mg d aily, Protonix 40 mg daily, Solu-Medrol 20 mg q. 12 hours, Tessalon Perles 100 mg 3 times a day, Zaro xolyn 2.5 mg daily. LABORATORY DATA: Shows hemoglobin 10.4, hematocrit 32.2, WBC 7.1, platelet count is 257. Sodium 135 , potassium 4.6, chloride 95, bicarbonate 37, BUN 40, creatinine 0.9, glucose is 258, calcium is 9.3, phosphorus 4.0, magnesium 1.7, AST 19, ALT 26, alkaline phosphatase is 117, albumin is 3.3. IMPRESSION AND PLAN: Cardiomyopathy with diastolic dysfunction, severe pulmonary hypertension, diabe jackie, hypertension, morbid obesity, sleep apnea syndrome, lumbar radiculopathy, resolving pneumonia, a ctivities of daily living dysfunction. Spoke to nursing staff. Physical therapy has been ordered. May get her out of bed to reclining chair. May use bedside commode under supervision. Fall precauti ons. Encourage BiPAP use. Gastric prophylaxis, deep venous thrombosis prophylaxis. Follow up labs in the morning. Thank you and we will follow with you. Belle Lopez MD cc: 336 TT: 10/18/2016 15:47:20 Confirmation # [id number] Dictation # [id number] en
--- NOTE | 2016-10-18 18:20 | PN ---
DATE: 10/17/2016 The patient feels better, less short of breath, no chest pain, no nausea, no vomiting. Tolerating a full liquid diet clearly. Afebrile. Her blood pressure is better. PHYSICAL EXAMINATION: VITAL SIGNS: Temperature 97.6, heart rate 71, blood pressure 146/63, respirations 18. HEAD AND NECK: Normal. No JVD, no thyromegaly. CHEST: Bilateral rales. CARDIAC: First sound and second sound normal. ABDOMEN: Soft, obese, nontender. EXTREMITIES: Mild edema. NEUROLOGIC: Normal. LABORATORY DATA: On 10/17: White count 6, hemoglobin 8.9, hematocrit 28.1, platelets 219. Sodium 140 , potassium 4.3, chloride 104, bicarb 28, BUN 42, creatinine is 0.9. Blood sugar 258 and repeat 229. Liver function test is normal. Also on 10/16 chest x-ray consistent with central congestive heart fa ilure. IMPRESSION AND PLAN: 1. Acute congestive heart failure. Continue IV Lasix, potassium, current medications, the patient r esponding well. 2. Community-acquired pneumonia plus possible aspiration pneumonia, also gram-negative urinary tract infection. Continue meropenem. Continue follow up with ID consult. The patient seems stable. 3. Chronic obstructive pulmonary disease. Continue steroids, inhalers, continue CPAP. The patient is stable. 4. Hypertension, uncontrolled, is better now. Continue Norvasc 10. Continue Cozaar 100. The patient seems to be doing well, is stable. Continue gastrointestinal and deep venous thrombosis prophylaxis. Osmar Ponce MD cc: 223 TT: 10/18/2016 18:20:00 Confirmation # [id number] Dictation # [id number] [place]
[2016-10-18] MEDS: Enoxaparin 40 mg Syringe SC SCH (18:24)
[2016-10-18] MEDS ORDERED: Insulin Regular 1 UNITS/0.01 ML ML SC STA (21:28)
--- NOTE | 2016-10-18 21:30 | CP.PCM.PN ---
Subjective - Date & Time of Evaluation Date of Evaluation: 10/18/16 Time of Evaluation: 21:29 - Subjective Subjective: S:Nurse calls to say that blood glucose is 472mg %.Patient is asymptomatic. 10 units of regular insulin SC was ordered. Patient was seen at bed side. Pertinent medical record was reviewed. O: Last Vital Signs 3 Temp 97.8 F 10/19/16 00:01 Pulse 82 10/19/16 00:01 Resp 20 10/19/16 00:01 BP 154/72 H 10/19/16 00:01 Pulse Ox 98 10/19/16 00:01 Stable. Not in distress. LUNGS:Normal breathing pattern. A:Hyperglycemia. P:Regular insulin 10 untis SC stat. Objective - Vital Signs/Intake and Output Vital Signs (last 24 hours): Temp Pulse Resp BP Pulse Ox 97.1 F L 74 19 162/57 H 98 10/18/16 19:43 10/18/16 19:43 10/18/16 19:43 10/18/16 19:43 10/18/16 06:00 - Medications Medications: Current Medications Albuterol Sulfate (Albuterol 0.083% Inhal Radha (2.5 Mg/3 Ml) Ud) 2.5 mg IH [id number] [facility] Last Admin: 10/18/16 20:12 Dose: 2.5 mg Amlodipine Besylate (Norvasc) 10 mg PO DAILY [facility] Last Admin: 10/18/16 11:32 Dose: 10 mg Benzocaine/Menthol (Cepacol Sore Throat) 1 tahir MT Q2H PRN PRN Reason: Sore Throat Benzonatate (Tessalon Perles) 100 mg PO TID [facility] Last Admin: 10/18/16 17:30 Dose: 100 mg Enoxaparin Sodium (Lovenox) 40 mg SC DAILY [facility] PRN Reason: Protocol Last Admin: 10/18/16 18:24 Dose: 40 mg Furosemide (Lasix) 40 mg IV BID [facility] Last Admin: 10/18/16 17:30 Dose: 40 mg Propofol (Diprivan) 1,000 mg in 100 mls @ 3.13 mls/hr IV .Q24H PRN; Protocol; 5 MCG/KG/MIN PRN Reason: TITRATE PER MD ORDER Last Titration: 10/14/16 10:40 Dose: 0 mcg/kg/min, 0 mls/hr Insulin Detemir (Levemir) 15 unit SC BID [facility] Last Admin: 10/18/16 17:30 Dose: 15 unit Insulin Human Regular (Humulin R High) 0 units SC ACHS SONYA PRN Reason: Protocol Last Admin: 10/18/16 17:26 Dose: 10 units Lorazepam (Ativan) 0.5 mg IVP Q6H PRN; Protocol PRN Reason: Anxiety Last Admin: 10/15/16 07:48 Dose: 0.5 mg Losartan Potassium (Cozaar) 100 mg PO DAILY [facility] Last Admin: 10/18/16 11:32 Dose: 100 mg Methylprednisolone (Solu-Medrol) 20 mg IVP Q12 [facility] Last Admin: 10/18/16 11:30 Dose: 20 mg Metolazone (Zaroxolyn) 2.5 mg PO DAILY [facility] Last Admin: 10/18/16 11:31 Dose: 2.5 mg Pantoprazole Sodium (Protonix Ec Tab) 40 mg PO ACB [facility] Last Admin: 10/18/16 07:56 Dose: 40 mg Potassium Chloride (Klor-Con 10) 10 meq PO BRK SONYA Last Admin: 10/18/16 07:56 Dose: 10 meq - Labs Labs: 10/18/16 07:57 10/18/16 07:57 PT 10.9 Seconds (9.9-11.8) 10/12/16 16:16 INR 1.01 (0.93-1.08) 10/12/16 16:16 APTT 30.5 Seconds (23.7-30.8) 10/12/16 16:16
[2016-10-19] MEDS: Albuterol 0.083% Inhal Sol (2.5 mg/3 mL) UD IH SCH ×3 (01:11→14:03)
[2016-10-19 06:26] LABS: ADD MANUAL DIFF? NO
[2016-10-19 06:48] VITALS: O2SAT 92
[2016-10-19 07:04] LABS: ALB/GLOB RATIO 0.9 (1.1-1.8); ALKALINE PHOSPHATASE 123 U/L (38-133); ALT/SGPT 30 U/L (7-56); AST/SGOT 14 U/L (15-39); BILIRUBIN,TOTAL 0.6 mg/dL (0.2-1.3); BLOOD UREA NITROGEN 52 mg/dL (7-21); CALCIUM 9.6 mg/dL (8.4-10.5); CARBON DIOXIDE 37 mmol/L (21-33); CHLORIDE 88 mmol/L (98-107); GFR AFRICAN-AMERICAN > 60; GLUCOSE,RANDOM 250 mg/dL (70-110); MAGNESIUM 1.8 mg/dL (1.7-2.2); PHOSPHOROUS 4.5 mg/dL (2.5-4.5); POTASSIUM 4.4 mmol/L (3.6-5.0); SODIUM 135 mmol/L (132-148); TOTAL PROTEIN 7.5 g/dL (5.8-8.3)
[2016-10-19 07:29] LABS: BASO # 0.01 K/mm3 (0.0-2.0); BASO % 0.1 % (0.0-3.0); GRAN # 8.68 (1.4-6.5); GRAN % 88.9 % (50.0-68.0); HEMATOCRIT 35.8 % (36.0-48.0); LYMPH # 0.5 (1.2-3.4); LYMPH % 4.9 % (22.0-35.0); MEAN CELL VOLUME 86.3 fL (80.0-105.0); MEAN CORPUSCULAR HEMOGLOBIN 27.2 pg (25.0-35.0); MEAN CORPUSCULAR HGB CONC 31.6 g/dl (31.0-37.0); MEAN PLATELET VOLUME 11.5 fl (7.0-11.0); MONO # 0.6 (0.1-0.6); MONO % 6.1 % (1.0-6.0); PLATELET COUNT 271 10^3/uL (120.0-450.0); RED CELL DISTRIBUTION WIDTH 14.4 % (11.5-14.5); WHITE BLOOD COUNT 9.8 10^3/ul (4.5-11.0)
[2016-10-19] MEDS: Pantoprazole 40 mg EC Tab PO SCH (08:12)
[2016-10-19] MEDS: Potassium Chloride 10 mEq ER Tab PO SCH (08:12)
[2016-10-19] MEDS: Insulin Reg-HIGH-Coverage SC SCH ×2 (08:13→12:48)
--- NOTE | 2016-10-19 08:53 | PN ---
DATE: 10/18/2016 The patient comfortable, no distress. She is just concerned about she is sitting in the bed to pass urine, uncomfortable. The patient is off Munroe catheter, discontinued today and a commode was ordere d and . Otherwise, the patient has no complaint, no chest pain. Her diet changed from liquid t o soft small bites because of her respiratory distress. Also, blood sugar 250, we will increas e her medicine to a higher dose. Otherwise, no new complaints. She started ambulating. PHYSICAL EXAMINATION: Today is as follows: VITAL SIGNS: Temperature 97.8, heart rate 65, blood pressure 144/52, respirations 19. HEAD AND NECK: Normal. No JVD. No thyromegaly. CHEST: Clear, good entry. CARDIAC: First and second sounds are normal. LUNGS: A few basilar rales. ABDOMEN: Obese, soft. EXTREMITIES: Mild edema. Then I repeated her physical exam again: HEAD AND NECK: Normal. No JVD. CHEST: A few basilar rales bilaterally. CARDIAC: First sound, second sound normal. ABDOMEN: Obese, nontender. EXTREMITIES: Mild edema. NEUROLOGIC: Normal. LABORATORY DATA: Show sodium 135, potassium 4.6, chloride 37, BUN 40, creatinine 0.9. Blood sugar 2 58. Liver function test is normal. CBC: White count 7.1, hemoglobin 10.4, hematocrit 32.2, platele ts 257. IMPRESSION AND PLAN: 1. Acute congestive heart failure. Continue diuresis. Discussed with the patient about how to wake herself at home, how to measure her weight and watch her breathing, which is sign of fluid overload. She understands and she understands what that means. At this time, we will continue Lasix, c ontinue Zaroxolyn, continue potassium as prescribed. 2. Chronic obstructive pulmonary disease, obstructive sleep apnea. Continue BiPAP and inhalers, con tinue BiPAP machine, steroid inhalers, IV and inhaled bronchodilators. 3. Diabetes, increase Levemir 15 units b.i.d. plus insulin coverage. 4. Hypertension, stable. Continue Norvasc and Cozaar. PLAN: Continue GI and DVT prophylaxis. Start commode at the bedside. Change diet to heart healthy diabetic, 1800 ADA, small bites for her diet. Also, start physical therapy, probably with TCU evalua tion. Continue current treatment. Follow up clinically. Osmar Ponce MD cc: 223 TT: 10/18/2016 18:43:24 Confirmation # [id number] Dictation # [id number] mn
[2016-10-19] MEDS: metOLazone 2.5 MG TAB PO SCH (10:16)
[2016-10-19] MEDS: Enoxaparin 40 mg Syringe SC SCH (10:16)
[2016-10-19] MEDS: MethylPREDNISolone 40 mg Vial IVP SCH (10:17)
[2016-10-19] MEDS: Insulin Detemir 100 units/ml Vial (Levemir) SC SCH (10:19)
--- NOTE | 2016-10-19 11:19 | RAD ---
HISTORY: Compare to see improvement of CHF. COMPARISON: 10/16/2016 TECHNIQUE: Chest PA and lateral FINDINGS: LUNGS: There is resolution of the previously seen CHF PLEURA: Small pleural effusions CARDIOVASCULAR: Normal. OSSEOUS STRUCTURES: No significant abnormalities. VISUALIZED UPPER ABDOMEN: Normal. OTHER FINDINGS: None. IMPRESSION: No active disease.
--- NOTE | 2016-10-19 11:25 | PN ---
DATE: 10/19/2016 REASON FOR CONSULTATION AND FOLLOWUP: Bradycardia, hypertension, respiratory failure, intubated, now successfully extubated. BRIEF CLINICAL HISTORY: A 71-year-old morbidly obese female with past medical history significant fo r bradycardia on beta luis. Admitted here with respiratory failure, CHF. Now, patient is success fully extubated, lying flat on the bed. Denies any chest pain, shortness of breath, any palpitation. PHYSICAL EXAMINATION: VITAL SIGNS: Temperature afebrile, heart rate 70, blood pressure 152/61. HEENT: PERRLA. Extraocular muscles intact. NECK: Supple. No carotid bruit. No thyromegaly. CHEST: Clear to auscultation. HEART: S1, S2 regular. ABDOMEN: Soft. EXTREMITIES: Clubbing, cyanosis negative. BLOOD WORKUP: WBC 9. , hemoglobin 11.3, hematocrit 35.8, platelet count 271. Chemistry shows so dium 135, potassium 4.4, chloride , carbon dioxide 37, anion gap of 14, BUN 52, creatinine 1.0. BNP 3290. IMPRESSION: Decompensated congestive heart failure, acute on chronic, secondary to diastolic dysfunc tion, status post bradycardia secondary to beta luis, obesity, chronic obstructive pulmonary disea se, diabetes, hypertension, hyperlipidemia, nonobstructive coronary artery disease, status post cardi ac catheterization 2-3 years ago. Repeat echo was done that shows ejection fraction 73%, history of idiopathic hypertrophic subaortic stenosis, moderate tricuspid regurgitation, moderate pulmonary hype rtension. RECOMMENDATION: Continue Lasix. Continue amlodipine. Avoid beta luis, avoid Cardizem, avoid dig oxin. The patient was initially given a lot of fluid because of hypotension. Now, Lasix was increas ed to 40 b.i.d. and Zaroxolyn was given. We will try to cut down the Lasix from tomorrow. We will f ollow with you. Thank you, Dr. Ponce, for providing us the opportunity in taking care of the patient. Belle Mar MD cc: [id number] TT: 10/19/2016 11:25:09 Confirmation # [id number] Dictation # [id number] en
[2016-10-19 12:44] VITALS: BP 146/61; PULSE 78; RESP 18; TEMP 98.7
--- NOTE | 2016-10-19 15:56 | PN ---
DATE: 10/19/2016 The patient is in bed in no acute distress, nontoxic. PHYSICAL EXAMINATION: VITAL SIGNS: Temperature is 98, blood pressure is 140/60, respiratory rate of 20. HEENT: Unremarkable. NECK: Supple. LUNGS: Decreased breath sounds. HEART: Normal S1, S2. ABDOMEN: Soft, nontender. LABORATORY EXAMINATION: Reveals a white count of 9.8, hemoglobin 11, platelets of 271, BUN of 52, cr eatinine of 1.0. Urinalysis is noted and serology is noted. Microbiology reviewed. The patient had a chest x-ray today, which ____ congestive heart failure. Dr. Mar's note is reviewed. ASSESSMENT AND PLAN: A 71-year-old female with severe sepsis, now extubated, comfortable, with bilat eral lower lobe pneumonia, probable bacterial, with an elevated procalcitonin and an extended spectru [id number] Klebsiella in the urine. Has completed antibiotic therapy of meropenem and doxycycl ine. Currently, the patient is off of antibiotics, afebrile and with a white count of 9.8. However, the patient is currently on Solu-Medrol at 20 mg intravenous q.[address] Last. The maría ent is at risk for developing nosocomial infections. Saturnino Leyva MD cc: 350 TT: 10/19/2016 15:55:11 Confirmation # [id number] Dictation # [id number]
--- NOTE | 2016-10-19 19:59 | PN ---
DATE: 10/19/2016 REFERRING PHYSICIAN: Dr. Ponce. SUBJECTIVE: She is lying in the bed, head at 45 degrees, feels better, decreased cough, decreased sh ortness of breath. No nausea, no vomiting, no diarrhea. Decreased leg swelling. Tolerated BiPAP we ll. OBJECTIVE: GENERAL: In no acute distress. VITAL SIGNS: Temperature is 98, heart rate is 78, respiratory rate is 18, blood pressure 126/61, pul se ox 92% on nasal cannula. HEENT: Moist mucous membranes. Crowded airway. Mallampati score is 4. NECK: Supple. No JVD. LUNGS: Has a few crackles and scattered rhonchi. HEART: S1 and S2. Irregular. ABDOMEN: Soft, nontender. No organomegaly. EXTREMITIES: There is trace edema. NEUROLOGIC: Awake, alert, follows simple commands. MEDICATIONS: She is on albuterol-Atrovent nebulizer q.6 hours, Ativan 0.5 mg q.6 hours p.r.n., Cepac ol lozenges q.12 hours p.r.n., Cozaar 100 mg daily, insulin coverage, potassium supplement, Lasix 40 mg daily, Levemir 15 units subQ twice a day, Lovenox 40 mg daily, Norvasc 10 mg daily, Protonix 40 mg daily, Solu-Medrol 20 mg q.12 hours, Tessalon Perles 100 mg 3 times a day, Zaroxolyn 2.5 mg daily. LABORATORY DATA: Shows hemoglobin 11.3, hematocrit 35.8, WBC 9.8, platelet count is 271. Sodium 135 , potassium 4.4, chloride 88, bicarbonate 37, BUN 52, creatinine 1.0, glucose 250, phosphorus is 4.5. AST 14, ALT 30, alkaline phosphatase is 123. ProBNP is . Albumin is 3.6. Chest x-ray review ed and noted. No infiltrate or effusion noted. IMPRESSION AND PLAN: Cardiomyopathy with cardiac diastolic dysfunction, severe pulmonary hypertensio n, diabetes, hypertension, morbid obesity, sleep apnea syndrome, lumbar radiculopathy, status post pn eumonia, activities of daily living dysfunction. Pulmonary point of view, she is doing well. Contin ue IV and inhaled bronchodilators. Encourage BiPAP use. Gastric prophylaxis and deep venous thrombo sis prophylaxis. Out of bed to chair. Physical therapy to ambulate. She has a known sleep apnea sy ndrome diagnosed 2 years ago, noncompliant . At present, she tolerated BiPAP well. Will sugges t outpatient sleep study for diagnosis to qualify for CPAP and CPAP titration. Will set it up as an outpatient upon discharge. Belle Lopez MD cc: [phone] TT: 10/19/2016 19:58:44 Confirmation # [id number] Dictation # [id number] dn
--- NOTE | 2016-10-20 09:41 | DS ---
The patient is stable, comfortable, needs more physical therapy. The patient was admitted for acute congestive heart failure, possible pneumonia. She is currently off antibiotics, getting IV Lasix. S he needs more physical therapy and ambulation, hemodynamically stable. Blood sugar is better control led and will be transferred to TCU. PHYSICAL EXAMINATION: VITAL SIGNS: Temperature 98.7, heart rate 78, blood pressure 146/61, respirations 18, and saturating 98% on nasal cannula. HEAD AND NECK: Normal. No JVD, no thyromegaly. CHEST: Clear, good entry. CARDIAC: First sound, second sound normal. ABDOMEN: Soft and nontender. EXTREMITIES: No edema. NEUROLOGIC: Normal. LABORATORY DATA: On discharge, white count 9.8, hemoglobin 11.3, hematocrit 35.8, platelets 271. Ch emistry shows sodium 135, potassium 4.4, chloride 88, bicarb 37, BUN 52, creatinine is 1 and blood gr gar 250. Liver function test within normal range. Her ProBNP is, done on 3297 which is still e levated at this time. DISCHARGE DIAGNOSES: 1. Acute congestive heart failure. 1. Acute respiratory failure secondary to heart failure, pneumonia. 2. Aspiration pneumonia versus community-acquired pneumonia. 3. Urinary tract infection. 4. Uncontrolled diabetes. 5. Hypertension. 6. Hypercholesterolemia. 7. Obstructive sleep apnea, chronic obstructive pulmonary disease. PLAN: Continue current treatment. We will change Lasix as per cardiology. We will continue to mario tor her fluid status: The patient seems better. Continue current treatment. Follow up clinically. Continue physical therapy. Case was discussed with the patient, the son and the family. Osmar Ponce MD cc: [phone] TT: 10/20/2016 09:40:44 mt
--- NOTE | 2016-10-21 10:39 | PQF SEPSIS ---
This form is a permanent part of the medical record DR. EASON, ID noted "severe sepsis with autumn.pneumonia,elevated procal, resp. failure and klebsiella in the urine". Please verify if SEPSIS was present on admission. Clarification of your documentation is requested to better reflect the severity of illness and intensity of treatment of your patient. Indicators present [] Temp < 96.8 or > 100.4 [] WBC count > 12,000/mm3 or <000/mm3 or 10% immature neutrophils [] Heart Rate > 90 [xx] Respiratory Rate > 20 [] Fever or hypothermia [x] Chills [] Positive blood cultures [x] Hypotension [x] Metabolic acidosis (Elevated lactate level, anion gap or reduced blood pH) [x] Acute confusion /Altered Mental Status [] Shock [] Other: [] Location in the medical record that reflects the above clinical findings: [] Treatment Provided: [] PHYSICIAN'S RESPONSE Based on your medical judgment of the clinical indicators outlined above, are you treating this patient for a known or suspected: [] Sepsis / Septicemia Please specify organism if known [] [] SIRS (Systemic Inflammatory Response Syndrome) [] Severe Sepsis (Sepsis with Associated Organ Dysfunction) [] Fever of Unknown Origin [x] Other, please indicate: [] respiratory failure,blateral pnemonia [] If Unable to Determine, please check the box, sign and date. Present On Admission (POA) Indicator: [x] Present at the time of admission [] Not present at the time of admission [] Clinically Undetermined In responding to this query, please exercise your independent professional judgment. The fact that a question is asked does not imply that any particular answer is desired or expected. Thank you for your clarification on this documentation. If you have any questions please call:[ ] * Thank you, [x ] LENA head resident FELIX
== END 2016-10-19 17:18 | DRG 208 ==
LOC: ED 16:01 → ERH 18:42 → CCU 20:20 → 2RSO 10-16 14:46
PROVIDERS: ADMIT Internal Medicine; ATTEND Internal Medicine
PROC: 5A1945Z Respiratory Ventilation, 24-96 Consecutive Hours (ICD-10-PCS; principal; 2016-10-12)
PROC: 0BH17EZ Insertion of Endotracheal Airway into Trachea, Via Natural or Artificial Opening (ICD-10-PCS; 2016-10-12)
PROC: 3E0F7GC Introduction of Other Therapeutic Substance into Respiratory Tract, Via Natural or Artificial Opening (ICD-10-PCS; 2016-10-13)
PROC: 5A09557 Assistance with Respiratory Ventilation, Greater than 96 Consecutive Hours, Continuous Positive Airway Pressure (ICD-10-PCS; 2016-10-14)
DX: J69.0 Pneumonitis due to inhalation of food and vomit (principal); J96.01 Acute respiratory failure with hypoxia; I50.33 Acute on chronic diastolic (congestive) heart failure; N17.9 Acute kidney failure, unspecified; E66.01 Morbid (severe) obesity due to excess calories; I42.1 Obstructive hypertrophic cardiomyopathy; J44.0 Chronic obstructive pulmonary disease with (acute) lower respiratory infection; E87.2 Acidosis; J44.1 Chronic obstructive pulmonary disease with (acute) exacerbation; N39.0 Urinary tract infection, site not specified; J18.9 Pneumonia, unspecified organism; I27.2 Other secondary pulmonary hypertension; I11.0 Hypertensive heart disease with heart failure; E11.65 Type 2 diabetes mellitus with hyperglycemia; R00.1 Bradycardia, unspecified; E78.5 Hyperlipidemia, unspecified; I25.10 Atherosclerotic heart disease of native coronary artery without angina pectoris; M54.16 Radiculopathy, lumbar region; E78.00 Pure hypercholesterolemia, unspecified; I08.3 Combined rheumatic disorders of mitral, aortic and tricuspid valves; G89.29 Other chronic pain; G47.33 Obstructive sleep apnea (adult) (pediatric); Z68.37 Body mass index [BMI] 37.0-37.9, adult; Z78.1 Physical restraint status; Z91.19 Patient's noncompliance with other medical treatment and regimen; Z85.44 Personal history of malignant neoplasm of other female genital organs

== ENCOUNTER 2016-10-19 17:18 | Inpatient (IN) | payer OTHER, MEDICAID ==
[2016-10-19 18:26] VITALS: BMI 33.5
[2016-10-19] MEDS ORDERED: Benzocaine/Menthol (Cepacol) Lozenge MT PRN (18:26)
[2016-10-19] MEDS: Albuterol 0.083% Inhal Sol (2.5 mg/3 mL) UD IH SCH (20:03)
[2016-10-19] MEDS ORDERED: Insulin Detemir 100 units/ml Vial (Levemir) SC STA (22:01)
[2016-10-19] MEDS: Insulin Reg-HIGH-Coverage SC SCH (22:06)
[2016-10-20] MEDS: Albuterol 0.083% Inhal Sol (2.5 mg/3 mL) UD IH SCH ×4 (02:01→19:17)
[2016-10-20] MEDS: Insulin Reg-HIGH-Coverage SC SCH ×4 (06:36→22:05)
[2016-10-20] MEDS: Pantoprazole 40 mg EC Tab PO SCH (06:47)
[2016-10-20] MEDS: Insulin Detemir 100 units/ml Vial (Levemir) SC SCH ×3 (06:47→18:05)
[2016-10-20 07:24] LABS: CALCIUM 9.2 mg/dL (8.4-10.5); POTASSIUM 3.9 mmol/L (3.6-5.0)
[2016-10-20] MEDS: Potassium Chloride 10 mEq ER Tab PO SCH (08:38)
[2016-10-20] MEDS ORDERED: metOLazone 2.5 MG TAB PO SCH (10:00)
[2016-10-20] MEDS: Enoxaparin 40 mg Syringe SC SCH (10:25)
--- NOTE | 2016-10-20 11:47 | CON ---
DATE: 10/20/2016 REASON FOR CONSULTATION: Cardiac evaluation, continuity of care in transitional care unit. BRIEF CLINICAL HISTORY: This is a 71-year-old female with past medical history significant for milagro cardia, on beta luis, admitted with acute respiratory distress, intubated, bradycardiac, hypotensi on, who admitted after being successfully extubated, now patient transferred to transitional care [facility]. Denies any chest pain, shortness of breath, any palpitation. PAST MEDICAL HISTORY: Significant for decompensated congestive heart failure, acute on chronic, seco ndary to diastolic dysfunction; multiple episodes of bradycardia secondary to beta luis, Cardizem and digoxin, very sensitive; history of nonobstructive coronary artery disease, status post cardiac c atheterization 2-3 years ago. A recent echo shows ejection fraction 73%, history of idiopathic hyper trophic subaortic stenosis, moderate tricuspid regurg, moderate pulmonary insufficiency. CURRENT MEDICATIONS: The patient is on amlodipine, losartan, insulin, enoxaparin, prednisone as well as metolazone. REVIEW OF SYSTEMS: As per HPI. SOCIAL HISTORY: Denies any smoking. Denies any history of alcohol abuse. PHYSICAL EXAMINATION: VITAL SIGNS: Temperature afebrile, heart rate ____, blood pressure 142/67. HEENT: PERRLA. Extraocular muscles intact. NECK: Supple. No carotid bruits. No thyromegaly. CHEST: Clear to auscultation. HEART: S1, S2 regular. ABDOMEN: Soft. EXTREMITIES: Clubbing and cyanosis negative. BLOOD WORKUP: WBC 9.____, hemoglobin 11.____, hematocrit 35.8, platelet count 271. Chemistry shows sodium 134, potassium 3.9, chloride 80, carbon dioxide 37, anion gap of 13, BUN 60, creatinine 1.2. IMPRESSION: Decompensated congestive heart failure, acute on chronic, secondary to diastolic dysfunc tion; obesity, chronic obstructive pulmonary disease, diabetes; very sensitive to beta luis, Cardi zem and digoxin give significant bradycardia, multiple times the patient had this episode. RECOMMENDATION: Avoid rate limiting calcium channel luis. Avoid beta luis. Avoid digoxin. C ontinue diuretics. Continue aggressive treatment for COPD. Continue DVT prophylaxis. Continue Lasi x as above. Continue amlodipine. Continue rehabilitation. Will follow with you. Thank you, Dr. Ponce, for providing the opportunity in taking care of this patient. Will repeat the lab in the morning. Belle Mar MD cc: [id number] TT: 10/20/2016 11:46:18 Confirmation # [id number] Dictation # [id number] mn
--- NOTE | 2016-10-20 18:40 | CON ---
DATE: 10/20/2016 NEUROLOGY CONSULTATION CHIEF COMPLAINT: Dizziness. HISTORY OF PRESENT ILLNESS: This is a 71-year-old woman with past medical history of decompensated c ongestive heart failure, recent acute on chronic secondary to diastolic dysfunction, multiple episode s of bradycardia secondary to beta blockers overuse, Cardizem and digoxin, was very sensitive, histor y of nonobstructive coronary artery disease status post cardiac catheterization 2-3 years ago, histor y of recent echo showing ejection fraction 73%, idiopathic hypertrophic subaortic stenosis and modera te tricuspid regurgitation, history of moderate pulmonary insufficiency, who was admitted for acute r espiratory distress, intubated and had bradycardia and transient hypotension, which was eventually gr ccessfully extubated, was transferred to transitional care for rehabilitation for underlying decondit ioned state, was consulted for dizziness. She said the dizziness is more of lightheadedness rather t malone a spinning sensation of the room. She feels short of breath at times. She likely needs to be us ing a CPAP at night, but she has not. Cardiology and pulmonary is on board. Blood pressures are sta ble, slightly transient lower diastolically at times due to diastolic dysfunction, blood sugars are s table. No acute events today. She is following commands, moving all extremities without any difficu lty. PAST MEDICAL HISTORY: History of decompensated congestive heart failure chronic, history of episodes of bradycardia secondary to beta luis, history of idiopathic hypertrophic subaortic stenosis, mod erate tricuspid regurgitation, moderate pulmonary insufficiency, history of diabetes. CURRENT MEDICATIONS: Reviewed by nurse's reconciliation sheet. REVIEW OF SYSTEMS: A 14-point review of systems is negative except for the HPI. SOCIAL HISTORY: No illicit drug use, smoking, or ETOH abuse. PHYSICAL EXAMINATION: VITAL SIGNS: Temperature of 98, pulse rate of , blood pressure 116/44, respiratory rate of 18, oxygen 96% on room air. GENERAL: The patient is sitting up in the chair, in no acute distress. HEENT: Atraumatic, normocephalic. PERRLA. Extraocular muscles intact. NECK: Supple, no JVD, no adenopathy noted. LUNGS: Clear to auscultation. No adventitious sounds. HEART: S1, S2, normal rate and rhythm. No murmurs, rubs, or gallops. ABDOMEN: Soft, nontender, nondistended. Bowel sounds are present. EXTREMITIES: No clubbing, no cyanosis. Peripheral pulses 2+ felt bilaterally. NEUROLOGIC: The patient is alert, oriented to person, place, month and year. Recall after 5 minutes is 1/3, poor attention, slow thought process. Cranial nerves II through XII are intact. MOTOR: Slight increased tone throughout. Moves all extremities equally. Toes downgoing bilaterally . SENSORY: Decreased light touch and pinprick up to the calves bilaterally, decreased vibration of the toes. DTRs are 2+ throughout and 1 at the ankles. COORDINATION: Jtffhx-gh-vlve intact. GAIT: Deferred for now. LABORATORIES: Sodium is 134, potassium 3.9, chloride of 88, carbon dioxide 37, BUN of 68, creatinine of 1.2, random glucose 227. ASSESSMENT AND PLAN: This is a 71-year-old woman with past medical history of diabetes, hypertension , found to have decompensated congestive heart failure, acute on chronic secondary to diastolic dysfu nction, obesity, COPD, diabetes, bradycardia, very sensitive to beta blockers, Cardizem and digoxin, had multiple episodes of bradycardia and had transient hypotension, was intubated and currently extub ated in transitional care unit for rehabilitation of deconditioned state, was consulted for dizziness . Her dizziness is more cardiogenic rather than neurologic, dizziness is more likely related to deco nditioned state with superimposed underlying COPD and decompensated congestive heart failure. At thi s time, recommend: 1. Continue with aggressive treatment of chronic obstructive pulmonary disease. 2. Continue with her Lasix as above. 3. PT, OT for deconditioned state. 4. Keep her blood pressures between 140-180. 5. Possibly CPAP at night depending frequent pulmonary toileting as per Pulmonary. 6. Continue with gastrointestinal and deep vein thrombosis prophylaxis. No further neurological workup at this time. We will sign off. Please reconsult if necessary. Joey Richards MD cc: [phone] TT: 10/20/2016 18:38:53 Confirmation # [id number] Dictation # [id number] mn
[2016-10-21] MEDS: Albuterol 0.083% Inhal Sol (2.5 mg/3 mL) UD IH SCH ×4 (03:15→20:42)
[2016-10-21 06:24] LABS: ADD MANUAL DIFF? NO
[2016-10-21 07:20] LABS: BASO # 0.01 K/mm3 (0.0-2.0); BASO % 0.1 % (0.0-3.0); EOS # 0.3 (0.0-0.7); EOS % 2.2 % (1.5-5.0); GRAN # 10.53 (1.4-6.5); GRAN % 75.9 % (50.0-68.0); HEMATOCRIT 34.9 % (36.0-48.0); LYMPH % 14.4 % (22.0-35.0); MEAN CELL VOLUME 84.5 fL (80.0-105.0); MEAN CORPUSCULAR HEMOGLOBIN 27.1 pg (25.0-35.0); MEAN CORPUSCULAR HGB CONC 32.1 g/dl (31.0-37.0); MEAN PLATELET VOLUME 11.1 fl (7.0-11.0); MONO % 7.4 % (1.0-6.0); PLATELET COUNT 288 10^3/uL (120.0-450.0); RED CELL DISTRIBUTION WIDTH 14.4 % (11.5-14.5); WHITE BLOOD COUNT 13.9 10^3/ul (4.5-11.0)
--- NOTE | 2016-10-21 07:21 | CON ---
DATE: 10/20/2016 REFERRING PHYSICIAN: Dr. Ponce REASON FOR CONSULT: Sleep apnea syndrome, cough and shortness of breath, status post respiratory kory lure. HISTORY OF PRESENT ILLNESS: This is a 71-year-old female with known history of cardiomyopathy, conge stive heart failure, cardiac arrhythmia, obstructive sleep apnea syndrome, obesity, idiopathic hypert rophic subaortic stenosis, noncompliant with the CPAP/BiPAP, admitted for bradycardia, symptomatic an d respiratory failure, successfully extubated, presently admitted to transitional care for continued rehab. She is out of bed to chair, feels much better, tolerated BiPAP well. Breathing is better. C ough and shortness of breath is better. No nausea, no vomiting, no diarrhea. Still has trace leg sw elling. PAST MEDICAL HISTORY: Cardiomyopathy with systolic and diastolic dysfunction, idiopathic hypertrophi c subaortic stenosis, sleep apnea syndrome, hypertension. SOCIAL HISTORY: No history of smoking or alcohol use. FAMILY HISTORY: Positive for diabetes, hypertension, sleep apnea. MEDICATIONS: She is on albuterol-Atrovent nebulizer q. 6 hours. Antivert 12.5 mg q. 8 hour, Ativan 0.5 mg q. 6 hours, Cepacol lozenges q. 2 hours p.r.n., Cozaar 100 mg daily, Glucophage 1000 mg twice a day, insulin coverage, potassium 10 mEq daily, Lasix 40 mg daily, Levemir 20 units subQ a.c., ____, Levemir 15 units ACB, Lovenox 40 mg daily, Norvasc 10 mg daily, prednisone 10 mg daily, Protonix 40 mg daily, Tessalon Perles 100 mg 3 times a day, Zaroxolyn 2.5 mg daily. REVIEW OF SYSTEMS: No headache, no rhinitis, decreased cough, decreased shortness of breath. No geremias sea, no vomiting or diarrhea. No dysuria or leg pain. Decreased leg swelling. PHYSICAL EXAMINATION: GENERAL: Sitting up in a chair in no acute distress. VITAL SIGNS: Temp is 98, heart rate 78, respiratory rate 18, blood pressure 116/44 and pulse ox 96% on nasal cannula. HEENT: Moist mucous membranes. Crowded airway. Mallampati score is 4. NECK: Supple. No JVD. LUNGS: Have a few crackles and scattered rhonchi. HEART: S1 and S2. ABDOMEN: Soft, nontender. No organomegaly. EXTREMITIES: Not much edema. NEUROLOGIC: Awake, alert, follows simple commands. LABORATORY DATA: Shows sodium 134, potassium 3.9, chloride 88, bicarbonate 37, BUN 68, creatinine 1. 2, glucose 227, calcium 9.2. IMPRESSION AND PLAN: Cardiomyopathy with cardiac diastolic dysfunction, severe pulmonary hypertensio n, diabetes, hypertension, morbid obesity, sleep apnea syndrome, lumbar radiculopathy, status post pn eumonia. Pulmonary point of view, doing okay. I spoke to patient's son at bedside. All the questio ns answered. Continue BiPAP while sleeping. Keep head at 45 degree, p.o. and inhaled bronchodilator , diuretics, afterload senior environmental engineer, gastric and deep venous thrombosis prophylaxis. Will need outpatient attended separate study to qualify for CPAP. We will follow with you. Belle Lopez MD cc: [phone] TT: 10/21/2016 07:21:24 Confirmation # [id number] Dictation # [id number] tn
[2016-10-21 07:41] LABS: BILIRUBIN,TOTAL 0.6 mg/dL (0.2-1.3); CALCIUM 9.3 mg/dL (8.4-10.5); MAGNESIUM 1.7 mg/dL (1.7-2.2); PHOSPHOROUS 4.6 mg/dL (2.5-4.5); POTASSIUM 4.7 mmol/L (3.6-5.0); TOTAL PROTEIN 6.4 g/dL (5.8-8.3)
[2016-10-21] MEDS: Potassium Chloride 10 mEq ER Tab PO SCH (08:54)
[2016-10-21] MEDS: Insulin Detemir 100 units/ml Vial (Levemir) SC SCH ×2 (09:08→17:26)
[2016-10-21] MEDS: Pantoprazole 40 mg EC Tab PO SCH (09:11)
[2016-10-21] MEDS: Enoxaparin 40 mg Syringe SC SCH (09:14)
[2016-10-21] MEDS: Insulin Reg-HIGH-Coverage SC SCH ×4 (09:15→21:53)
[2016-10-21] MEDS: Sodium Chloride 0.45% 1,000 ML IV SCH (12:34)
[2016-10-21 12:40] LABS: URIC ACID 9.4 mg/dL (2.5-6.2)
--- NOTE | 2016-10-21 14:37 | PN ---
DATE: 10/21/2016 The patient is in room 314, bed 1. REASON FOR CONSULTATION AND FOLLOWUP: Bradycardia, episode of hypotension, status post respiratory d istress. HISTORY OF PRESENT ILLNESS: A 71-year-old female who was admitted to the hospital with respiratory d istress. The patient also found to have bradycardia and hypotension. The patient had to be intubate d, then she was successfully extubated and patient's bradycardia was related to medications, which we re stopped and patient's bradycardia improved and now maintaining sinus rhythm. The patient is very sensitive to Cardizem, verapamil, digoxin and beta luis in the past, also 3 times it has happened. Any other medications she is put on, patient goes into bradycardia. The patient had cardiac cathete rization 2-3 years ago, was nonobstructive coronary artery disease, ejection fraction 73%. History o f idiopathic hypertrophic subaortic stenosis, moderate tricuspid regurgitation, moderate pulmonary in sufficiency. PHYSICAL EXAMINATION: VITAL SIGNS: Blood pressure 134/53, respirations 18, pulse 84, temperature 98.4. HEENT: Head is normocephalic. Eyes: Pupils normal. Conjunctivae are slightly pale. NECK: JVP low. Carotids equal. THORAX: AP diameter normal. LUNGS: No rales. CARDIOVASCULAR: S1, S2, systolic murmur, no rub. ABDOMEN: Soft, nontender, no organomegaly. Bowel sounds normal. EXTREMITIES: No clubbing, no cyanosis. LABORATORY DATA: WBC 13.9, hemoglobin 11.2, hematocrit 34.9, platelets 288. Sodium 133, potassium 4 .7, BUN 81, creatinine 1.5, random glucose 128, repeat glucose on 10/21 is 109. AST 14, ALT 34. Tota l protein and albumin normal. DIAGNOSES: Decompensated congestive heart failure, acute on chronic, secondary to diastolic dysfunct ion, obesity, chronic obstructive pulmonary disease, diabetes, very sensitive to beta luis, Cardiz em and digoxin, they all cause bradycardia, nonobstructive coronary artery disease, left ventricular ejection fraction 73%. On echo, suggestion of idiopathic hypertrophic subaortic stenosis without any significant pressure gradient, moderate tricuspid regurg, moderate pulmonary regurg. PLAN: Avoid calcium channel blockers, beta luis and digoxin. Continue 50 mL of IV fluid as order ed, meclizine 12.5 mg t.i.d., insulin as ordered, prophylactic Lovenox 40 subQ daily, amlodipine 10 d aily, prednisone 10 daily, Protonix 40 daily. We will continue physical therapy. We will follow vijaya shaver. Belle Adame MD cc: [id number] TT: 10/21/2016 14:36:30 Confirmation # [id number] Dictation # [id number] rn
--- NOTE | 2016-10-22 00:20 | PN ---
DATE: 10/21/2016 The patient still feels tired, weak and dizzy. Her dizziness is less, but she feels unsteady. Also noted, blood pressure was on the low side, and her BUN and creatinine went up on evaluation of her la bs. The patient was seen in her exam here, son at the bedside, and she seems stable; however, she st ill feels weak and tired and need more unsteady to walk herself, but she is more alert, awake. She i s awake, alert, oriented x 3. She has no headache, no nausea, no vomiting, no short of breath. PHYSICAL EXAMINATION: VITAL SIGNS: On 10/21/2016, temperature is 98.4, heart rate 84, blood pressure 134/53, respirations 18, saturation 98%. HEAD AND NECK: Normal. No JVD, no thyromegaly. CHEST: Clear, good air entry. CARDIAC: First and second sounds are normal. Systolic aortic murmur. ABDOMEN: Soft, obese, nontender. EXTREMITIES: No edema. NEUROLOGIC: Normal. LABORATORY DATA: Shows sodium 133, potassium 4.7, chloride 91, bicarbonate 32, BUN 81, creatinine 1. 5, blood sugar is 109, uric acid 9.4, phosphorus 4.6, magnesium 1.7, AST and ALT and alkaline phospha tase is normal. Blood sugar was 128. Her CBC shows white count 13.9, hemoglobin 11.2, hematocrit 34 .9, platelets 288. IMPRESSION AND PLAN: 1. Generalized weakness and deconditioning. Continue physical therapy. 2. Acute renal insufficiency. We will hold off on Lasix, potassium and Zaroxolyn. We will give a s mall dose of IV fluid half normal saline and monitor repeat labs in the morning, also if it is okay w katharina Mar. We will get also renal consult, Dr. Beverly, nephrology consult. 3. Diabetes, controlled better. Continue current insulin regimen. We will discontinue metformin be cause of high creatinine. 4. Hypertension, stable. 5. Vertigo. We will get a neurology consult, Dr. Richards, for the patient. Continue Antivert and mo nitor, seems better. Continue current treatment. 6. Leukocytosis, etiology could be steroid related. There is no fever. She is off antibiotics. We will continue to monitor her status and may be will get a urine culture and follow up with ID. Osmar Ponce MD cc: [phone] TT: 10/22/2016 00:19:34 Confirmation # [id number] Dictation # [id number] mn
--- NOTE | 2016-10-22 01:38 | HP ---
DATE: 10/20/2016 HISTORY OF PRESENT ILLNESS: The patient was admitted to TCU after being admitted to the ICU with res piratory failure, extubated. The patient has congestive heart failure, pneumonia and urinary tract i nfections. She is off antibiotics. She is on IV Lasix. Seems improving and was discharged to TCU b ecause of associated weakness, unsteadiness and gait training. She has no fever, no nausea, no vomit ing. She seems comfortable, but needs more physical therapy. PAST MEDICAL HISTORY: As I mentioned before, she does have diabetes type 2, some hypertrophic subaor tic stenosis with mild gradient. She has hypersensitivity to beta luis, hypertension, diabetes ty pe 2, obesity. She does have obstructive sleep apnea, noncompliant with the machine. ALLERGIES: No known allergies. SOCIAL HISTORY: She lives with her son. No smoking or drinking. FAMILY HISTORY: Noncontributory. LABORATORY DATA: Laboratory has been ordered for tomorrow which include CBC and chemistry. REVIEW OF SYSTEMS: As I mentioned before, she does have some weakness, unsteady gait, sometimes shor t of breath, sometimes edema lower extremities. Otherwise negative. FAMILY HISTORY: Noncontributory. PHYSICAL EXAMINATION: VITAL SIGNS: On 10/20/2016, temperature 98.2, heart rate 80, blood pressure 131/52, respirations 18, saturation 97. HEAD AND NECK: Normal. No JVD, no thyromegaly. CHEST: Clear, good entry. CARDIAC: First sound and second sound normal. There is a mild systolic murmur. ABDOMEN: Soft, obese, nontender. EXTREMITIES: No edema. NEUROLOGIC: Normal. LABORATORY DATA: Pending tomorrow. Order CBC and basic metabolic panel for tomorrow. IMPRESSION AND PLAN: 1. Deconditioning, generalized weakness, unsteady gait. Will continue physical therapy. 2. The patient does complain of dizziness, more of the vertigo type dizzy, especially with head move ment. We will get Antivert for her and will follow up on that. 3. Uncontrolled diabetes. Continue insulin coverage. Continue Levemir and resume her oral hypoglyc emic medications. 4. Congestive heart failure as per cardiology. Continue current medicines. Cardiology consult, Dr. Mar. Continue Lasix for now. We will repeat labs in the morning. 5. Hypertension. Continue Cozaar. Continue Norvasc. For monitor blood pressure. 6. Chronic obstructive pulmonary disease. The patient is on steroids. May consider switching to p. o. pills, prednisone. PLAN: Continue physical therapy. Continue nebulizer treatments. Continue gastrointestinal and deep venous thrombosis prophylaxis. Follow up clinically. Osmar Ponce MD cc: [phone] TT: 10/22/2016 01:37:46 mn
[2016-10-22] MEDS: Albuterol 0.083% Inhal Sol (2.5 mg/3 mL) UD IH SCH ×4 (02:30→20:28)
[2016-10-22] MEDS: Insulin Detemir 100 units/ml Vial (Levemir) SC SCH ×2 (06:42→17:26)
[2016-10-22] MEDS: Pantoprazole 40 mg EC Tab PO SCH (06:42)
[2016-10-22] MEDS: Insulin Reg-HIGH-Coverage SC SCH ×4 (06:42→22:25)
--- NOTE | 2016-10-22 07:05 | CP.PCM.PN ---
Subjective - Date & Time of Evaluation Date of Evaluation: 10/22/16 Time of Evaluation: 07:04 - Subjective Subjective: 24g, angiocath inserted in the left hand vein, in single attempt, with good return and flow, for purpose of ivf and medications. Objective - Vital Signs/Intake and Output Vital Signs (last 24 hours): Temp Pulse Resp BP Pulse Ox 98.8 F 79 18 118/50 L 97 10/21/16 16:00 10/21/16 16:00 10/21/16 16:00 10/21/16 16:00 10/21/16 16:00 - Medications Medications: Current Medications Albuterol Sulfate (Albuterol 0.083% Inhal Ardha (2.5 Mg/3 Ml) Ud) 2.5 mg IH [id number] SONYA PRN Reason: Protocol Last Admin: 10/22/16 02:30 Dose: 2.5 mg Amlodipine Besylate (Norvasc) 10 mg PO DAILY SONYA PRN Reason: Protocol Last Admin: 10/21/16 09:12 Dose: 10 mg Benzocaine/Menthol (Cepacol Sore Throat) 1 tahir MT Q2H PRN PRN Reason: Sore Throat Benzonatate (Tessalon Perles) 100 mg PO TID [facility] Last Admin: 10/21/16 17:29 Dose: 100 mg Enoxaparin Sodium (Lovenox) 40 mg SC DAILY SONYA PRN Reason: Protocol Last Admin: 10/21/16 09:14 Dose: 40 mg Sodium Chloride (Sodium Chloride 0.45%) 1,000 mls @ 50 mls/hr IV .Q20H SONYA Stop: 10/23/16 08:00 Last Admin: 10/21/16 12:34 Dose: 50 mls/hr Insulin Detemir (Levemir) 20 unit SC ACD SONYA PRN Reason: Protocol Last Admin: 10/21/16 17:26 Dose: 20 unit Insulin Detemir (Levemir) 15 unit SC ACB SONYA PRN Reason: Protocol Last Admin: 10/22/16 06:42 Dose: Not Given Insulin Human Regular (Humulin R High) 0 units SC ACHS SONYA PRN Reason: Protocol Last Admin: 10/22/16 06:42 Dose: Not Given Lorazepam (Ativan) 0.5 mg IVP Q6H PRN; Protocol PRN Reason: Anxiety Losartan Potassium (Cozaar) 100 mg PO DAILY SONYA PRN Reason: Protocol Last Admin: 10/21/16 09:15 Dose: 100 mg Meclizine HCl (Antivert) 12.5 mg PO Q8 OSNYA PRN Reason: Protocol Last Admin: 10/22/16 05:22 Dose: 12.5 mg Pantoprazole Sodium (Protonix Ec Tab) 40 mg PO 0630 SONYA PRN Reason: Protocol Prednisone (Prednisone Tab) 10 mg PO 0800 SONYA PRN Reason: Protocol Last Admin: 10/21/16 09:12 Dose: 10 mg - Labs Labs: 10/21/16 06:00 10/21/16 07:00
--- NOTE | 2016-10-22 08:10 | PN ---
DATE: 10/21/2016 REFERRING PHYSICIAN: Dr. Ponce. SUBJECTIVE: She is out of bed to chair, done well in therapy, frustrated, sleepy, tired, tolerated B iPAP well. Cough is better. No nausea, no vomiting, no diarrhea. Decreased leg swelling. OBJECTIVE: GENERAL: No acute distress. VITAL SIGNS: Temperature is 98.8, heart rate is 79, respiratory rate is 20, blood pressure 118/50, p ulse oximetry 97% on 3 liters nasal cannula. HEENT: Moist mucous membranes. Crowded airway. Mallampati score is 4. NECK: Supple. No JVD. LUNGS: Have a prolonged expiratory phase. HEART: S1 and S2. Irregular. ABDOMEN: Soft, nontender. No organomegaly. EXTREMITIES: No edema. NEUROLOGIC: Awake, alert, follows simple commands. MEDICATIONS: She is on albuterol-Atrovent nebulizer q. 6 hours, Entyvio 12.5 mg q. 8 hour, 0.5 mg q. 6 hours p.r.n., Cepacol lozenges q. 12 hours, Cozaar 100 mg daily, insulin coverage, Levemir 2 0 units subQ , Levemir 15 units subQ , Lovenox 40 mg daily, Norvasc 10 mg daily, prednisone 10 mg daily, Protonix 20 mg daily, IV fluid half normal saline 50 mL per hour, Tessalon Perles q. 8 hours. LABORATORY DATA: Shows hemoglobin 11.2, hematocrit 34.9, WBC 13.9, platelet count is 288. Sodium 13 3, potassium 4.7, chloride 91, bicarbonate 32, BUN 81, creatinine 1.5, glucose is 109, uric acid is 9 .4, calcium is 9.3. Phosphorus is 4.6. AST 14, ALT 35, alkaline phosphatase is 104. IMPRESSION AND PLAN: Cardiomyopathy with cardiac diastolic dysfunction, severe pulmonary hypertensio n, diabetes, hypertension, CPAP , lumbar radiculopathy, status post pneumonia dehydr ation. Pulmonary point of view, doing okay. Encourage BiPAP use, bronchodilators. Noted to start h er on IV fluid have to be careful with heart failure. Gastric prophylaxis, deep venous thrombosis pr ophylaxis. Fall precautions. Continue therapy. Follow up labs in the morning. Thank you and we wi ll follow with you. Belle Lopez MD cc: [id number] TT: 10/21/2016 22:07:38 Confirmation # [id number] Dictation # [id number] cn
[2016-10-22 09:07] LABS: CALCIUM 9.2 mg/dL (8.4-10.5); POTASSIUM 4.4 mmol/L (3.6-5.0)
[2016-10-22] MEDS: Sodium Chloride 0.45% 1,000 ML IV SCH (09:24)
[2016-10-22] MEDS ORDERED: Sodium Chloride 0.45% 1,000 ML IV SCH (09:45)
--- NOTE | 2016-10-22 09:58 | PN ---
DATE: 10/22/2016 REASON FOR CONSULTATION AND FOLLOWUP: Continued care in the transitional care unit. The computer sy stem is down, so dictating from the top of the head. BRIEF CLINICAL HISTORY: A 71-year-old female with a past medical history significant for nonobstruct nilton coronary artery disease, COPD, morbid obesity, diabetes, mitral regurgitation, tricuspid regurgit ation, ____ , echo, very sensitive to beta-luis, Cardizem, and digoxin, admitted with junctional b radycardia requiring intubation. The patient was started on dopamine, and beta-luis was held. Th e patient successfully recovered from bradycardia, and did not require any pacer. The patient transf erred ____ care. The patient was on IV diuretics yesterday. BUN and creatinine elevated, so Dr. Micheal lopez started on IV fluid and Lasix on hold. Currently, the patient is in 314, bed 1 in TCU. Denies any chest pain, shortness of breath, any palpitation. PHYSICAL EXAMINATION: VITAL SIGNS: Temperature afebrile. Heart rate is 64, blood pressure 130/88. HEENT: PERRLA. Extraocular muscles intact. NECK: Supple. No carotid bruits. No thyromegaly. CHEST: Clear to auscultation. HEART: S1, S2 regular. ABDOMEN: Soft. EXTREMITIES: Clubbing and cyanosis negative. LABORATORY DATA: Blood workup pending, as the computer system is down. IMPRESSION: Bradycardia secondary to beta-luis, ____ on admission successfully improved off beta- luis, diabetes, hypertension, hyperlipidemia, chronic obstructive pulmonary disease, status post c ardiac catheterization 2 years ago, nonobstructive coronary artery disease. RECOMMENDATION: Avoid Cardizem. Avoid rate limiting calcium channel luis. Avoid beta-luis, d igoxin. Continue gentle IV fluid. Follow up the lab. When the computer system is back, we will shravan ck the lab. Be careful ____ hydration. Otherwise, the patient can go back into CHF. We will follow with you. Follow up the lab. Thank you, Dr. Ponce, for providing me the opportunity in taking care of the patient. Belle Mar MD cc:Osmar Ponce MD [id number] TT: 10/22/2016 08:46:55 Confirmation # [id number] Dictation # [id number] 10/22/2016 08:58:00
[2016-10-22 10:04] LABS: HEMATOCRIT 33.1 % (36.0-48.0); MEAN CELL VOLUME 84.7 fL (80.0-105.0); MEAN CORPUSCULAR HEMOGLOBIN 27.1 pg (25.0-35.0); MEAN PLATELET VOLUME 10.6 fl (7.0-11.0); RED CELL DISTRIBUTION WIDTH 14.3 % (11.5-14.5); WHITE BLOOD COUNT 11.7 10^3/ul (4.5-11.0)
[2016-10-22] MEDS: Enoxaparin 40 mg Syringe SC SCH (10:55)
--- NOTE | 2016-10-22 12:37 | CON ---
DATE: 10/22/2016 REASON FOR CONSULTATION: Acute kidney injury. HISTORY OF PRESENTING ILLNESS: A 71-year-old lady seen in the transitional care unit, does not speak much Icelandic, previously unknown to me. Was initially admitted to the medical side, admitted to the ICU with respiratory failure. She was extubated. She was found to have congestive heart failure, p neumonia, UTI. She was transferred to the transitional care unit on 10/19. She was on Lasix 40 mg IV daily, prednisone, Glucophage, potassium, and Zaroxolyn 2.5 mg daily. Her creatinine was 1.0 on 10/19, it has been gradually rising. Creatinine anand to 1.5 yesterday. Hence, consultation was requested. She received ceftriaxone in the ICU. PAST MEDICAL AND SURGICAL HISTORY: NIDDM, aortic stenosis, hypertension, morbid obesity, CHF, COPD, obstructive sleep apnea, diastolic dysfunction, EF of 73%, idiopathic hypertrophic subaortic stenosis . FAMILY HISTORY: Not available. SOCIAL HISTORY: No smoking, no alcohol use, no IV drug abuse. ALLERGIES: No known drug allergies. CURRENT MEDICATIONS: Meclizine, Ativan, Cepacol, Cozaar 100, insulin, Levemir, Lovenox, amlodipine 1 0, prednisone 5 daily, Protonix, half normal saline at 50, Tessalon Perles. Her Glucophage has been put on hold. Her Lasix and metolazone also have been put on hold. REVIEW OF SYSTEMS: All systems are reviewed, pertinent positives are mentioned in the history of pre senting illness, rest unremarkable. PHYSICAL EXAMINATION: GENERAL: Obese, elderly lady sitting in chair in the transitional care unit. VITAL SIGNS: Blood pressure 149/62, heart rate 79, respiratory rate 18, temperature 98.8. HEENT: Normocephalic, atraumatic, positive pallor. NECK: Supple, no JVD. LUNGS: Bilateral crackles, diffuse scattered crackles. CARDIAC: S1, S2, regular rate and rhythm, no murmur, no rub. ABDOMEN: Obese, distended, soft, nontender, bowel sounds present. EXTREMITIES: 2+ pitting edema of the lower extremities. INTAKE AND OUTPUT: Not charted. LABORATORY DATA: WBC 11.7, hemoglobin 10.6, hematocrit 33, platelets 250, sodium 132, potassium 4.4, chloride 92, CO2 of 31, BUN 78, creatinine 1.5, glucose 164, calcium 9.2. CT of the chest, abdomen and pelvis done on 10/12, cardiomegaly, small pericardial effusion, no acute s olid visceral or bowel abnormality, bilateral adrenal nodules. ASSESSMENT AND PLAN: 1. Acute kidney injury superimposed on chronic kidney disease stage II. 2. Diastolic heart failure. 3. Morbid obesity. 4. Non-insulin dependent diabetes mellitus. 5. Hypertension. 6. Klebsiella urinary tract infection. 7. Elevated WBC count. PLAN: 1. Repeat urinalysis and urine culture. 2. Blood cultures x 2. 3. Consider repeating chest CT. 4. Agree with holding Glucophage. 5. Would discontinue IV fluids, patient does not appear to be volume deplete. 6. Check ESR. Thank you for the courtesy of this consultation. We will follow this patient closely with you. Rosa Beverly MD cc: [id number] TT: 10/22/2016 12:36:39 Confirmation # [id number] Dictation # [id number] sn
--- NOTE | 2016-10-22 13:53 | CON ---
DATE: 10/22/2016 LOCATION: The patient is in room 314. CHIEF COMPLAINT: Weakness times several days. HISTORY OF PRESENT ILLNESS: This is a 71-year-old female who is in the acute care, was seen today in the transitional care and transferred there for further care. The patient was admitted there with a diagnosis of bradycardia. The patient was seen by Dr. Vazquez on 10/13/2016 in consultation in [facility]. The patient is a 71-year-old female with diabetes mellitus, hypertension, obesity wi th a BMI of 37, dyslipidemia, pulmonary hypertension who was admitted with a junctional bradycardia, vulvar cancer and anemia. The patient was eventually discharged from the hospital and brought in to the acute care. The patient was intubated in the acute care, eventually was extubated, did well and was treated with bilateral lower lobe pneumonia and elevated procalcitonin. She had ESBL urinary tra ct infection and completed therapy with meropenem and doxycycline. Infectious disease consultation r equested. The patient has no fevers, no chills, no nausea or vomiting and feeling better. No dysuri a or frequency. No abdominal pain or diarrhea or constipation. PAST MEDICAL HISTORY: Significant for diabetes mellitus, pulmonary hypertension, obesity with BMI of 37, systemic hypertension, the junctional bradycardia, vulvar cancer, anemia. PAST SURGICAL HISTORY: Significant for cataract surgery. ALLERGIES: The patient has no known allergies. PHYSICAL EXAMINATION: GENERAL: The patient is in bed with a temperature of 98, blood pressure is 120/70, respiratory rate of 16. HEENT: Unremarkable. NECK: Supple. LUNGS: Have decreased breath sounds. HEART: Normal S1, S2. ABDOMEN: Soft, nontender. LABORATORY EXAMINATION: Reveals a white count of 13,900 yesterday and it is down to 11,700 and a hem oglobin of 10, platelets of 250, BUN of 78, creatinine of 1.5 and uric acid is noted and procalcitoni n is noted to be on 10/15/2016. Review of microbiology reveals yeast in the sputum. The urine culture is negative from 10/17. It wa s positive with Klebsiella pneumoniae from 10/12. The blood cultures have been negative. Klebsiella with extended-spectrum beta-lactamase and vulvar cultures from 05/2015 are noted. ASSESSMENT AND PLAN: This is a 71-year-old female with severe sepsis, was extubated, now comfortable , bilateral lower lobe pneumonia, probable bacterial with an elevated procalcitonin and extended-spec trum beta-lactamase Escherichia coli Klebsiella in the urine, had completed doxycycline and meropenem , off of antibiotics. He was on Solu-Medrol, which may explain the mild leukocytosis and currently n ow patient is off of antibiotics, is afebrile, mild leukocytosis of 11,700. Repeat urinalysis and ur ine cultures are pending. The patient is still on prednisone at 5 mg which may explain the leukocyto sis of 11,000. We will keep the patient off of the antibiotics. No further antibiotics, if possible , discontinue the heparin lock that may be present and we will follow closely with you. Saturnino Leyva MD cc: 350 TT: 10/22/2016 13:52:40 Confirmation # [id number] Dictation # [id number] dn
--- NOTE | 2016-10-22 18:58 | PN ---
DATE: 10/22/2016 REFERRING PHYSICIAN: Dr. Ponce. SUBJECTIVE: The patient is out of bed to chair, tolerating the BiPAP well. Did well in therapy toda y. Son is bedside. Emotionally, she is much better today, feeling better. No nausea, no vomiting, no diarrhea. Still has a trace leg swelling. OBJECTIVE: GENERAL: No acute distress. VITAL SIGNS: Temp is 98, heart rate 89, respiratory rate is 18, blood pressure 130/51, pulse ox 94% on nasal cannula. HEENT: Moist mucous membrane. Crowded airway. NECK: Supple, no JVD. LUNGS: Have a few crackles. HEART: S1, S2. ABDOMEN: Soft, nontender. No organomegaly. EXTREMITIES: There is trace edema. NEUROLOGIC: Awake, alert, follows simple command. MEDICATIONS: She is on DuoNeb q. 6 hours, Antivert 12.5 mg q. 8 hours, Ativan 0.5 mg q. 6 hours p.r. n., Cepacol lozenges q. 2 hours p.r.n., Cozaar 100 mg daily, insulin coverage, Levemir 20 units subcu taneous ACD, Lovenox 40 mg daily, Norvasc 10 mg daily, prednisone 5 mg daily, Protonix 40 mg daily, I V fluid half normal saline 50 mL per hour, Tessalon Perles 100 mg 3 times a day. LABORATORY DATA: Shows hemoglobin 10.6, hematocrit 33.1, WBC 11.7, platelet count is 250. Sodium 13 2, potassium 4.4, chloride 92, bicarbonate 31, BUN 78, creatinine 1.5, glucose 164, calcium is 9.2. IMPRESSION AND PLAN: Cardiomyopathy with cardiac diastolic dysfunction, severe pulmonary hypertensio n, hypertension, diabetes, lumbar radiculopathy, status post pneumonia. I spoke to patient's son at bedside. All their questions answered. Will continue BiPAP while sleeping. Keep head at 45 degrees . Gastric prophylaxis. Deep venous thrombosis prophylaxis. Fall precaution. She will need repeat sleep study as an outpatient to qualify her for CPAP, reassess CPAP pressure. Thank you, and will follow with you. Belle Lopez MD cc: [phone] TT: 10/22/2016 18:56:56 Confirmation # [id number] Dictation # [id number] dn
[2016-10-22 20:52] LABS: URINE BILIRUBIN NEGATIVE (NEGATIVE); URINE BLOOD NEGATIVE (NEGATIVE); URINE GLUCOSE (UA) >=1000 mg/dL (NEGATIVE); URINE KETONE NEGATIVE (NEGATIVE); URINE LEUKOCYTE ESTERASE TRACE Leu/uL (NEGATIVE); URINE PROTEIN NEGATIVE mg/dL (<30 mg/dL); URINE UROBILINOGEN 0.2 E.U./dL (<1 E.U./dL)
[2016-10-22 20:58] LABS: URINE APPEARANCE CLEAR (CLEAR); URINE COLOR STRAW (YELLOW)
[2016-10-22 21:07] LABS: URINE BACTERIA FEW (NEG); URINE EPITHELIAL CELLS 0 - 2 /hpf (0-5); URINE RBC NEGATIVE /hpf (0-2); URINE WBC 0 - 2 /hpf (0-6)
[2016-10-23] MEDS: Albuterol 0.083% Inhal Sol (2.5 mg/3 mL) UD IH SCH ×3 (01:57→13:23)
[2016-10-23] MEDS: Sodium Chloride 0.45% 1,000 ML IV SCH (02:26)
[2016-10-23] MEDS: Pantoprazole 40 mg EC Tab PO SCH (05:37)
[2016-10-23] MEDS: Insulin Reg-HIGH-Coverage SC SCH ×4 (06:47→21:55)
[2016-10-23] MEDS: Insulin Detemir 100 units/ml Vial (Levemir) SC SCH ×2 (06:48→17:21)
[2016-10-23 07:05] LABS: ADD MANUAL DIFF? NO
[2016-10-23 07:20] LABS: BASO # 0.01 K/mm3 (0.0-2.0); BASO % 0.1 % (0.0-3.0); EOS # 0.4 (0.0-0.7); EOS % 3.9 % (1.5-5.0); GRAN # 6.46 (1.4-6.5); GRAN % 68.6 % (50.0-68.0); LYMPH # 1.8 (1.2-3.4); LYMPH % 19.2 % (22.0-35.0); MEAN CELL VOLUME 83.6 fL (80.0-105.0); MEAN CORPUSCULAR HEMOGLOBIN 27.1 pg (25.0-35.0); MEAN CORPUSCULAR HGB CONC 32.4 g/dl (31.0-37.0); MEAN PLATELET VOLUME 10.6 fl (7.0-11.0); MONO # 0.8 (0.1-0.6); MONO % 8.2 % (1.0-6.0); PLATELET COUNT 224 10^3/uL (120.0-450.0); RED CELL DISTRIBUTION WIDTH 14.3 % (11.5-14.5); WHITE BLOOD COUNT 9.4 10^3/ul (4.5-11.0)
[2016-10-23 07:30] LABS: CALCIUM 8.6 mg/dL (8.4-10.5); POTASSIUM 4.1 mmol/L (3.6-5.0)
[2016-10-23] MEDS: Enoxaparin 40 mg Syringe SC SCH (10:19)
--- NOTE | 2016-10-23 12:22 | PN ---
DATE: 10/23/2016 The patient is in room 314, bed 1. REASON FOR CONSULTATION AND FOLLOWUP: Bradycardia, episode of hypotension, status post respiratory d istress. HISTORY OF PRESENT ILLNESS: A 71-year-old female who was admitted to the hospital with respiratory d istress and bradycardia and hypotension. The patient was intubated, then successfully extubated. Th e patient's bradycardia at 82, very sensitivity to the Cardizem, beta luis and digoxin. This is t he third time she had bradycardia due to those drugs, so patient without the drugs improved her milagro cardia and maintained sinus rhythm with adequate heart rate. The patient now in transitional care un for deconditioning and physical therapy. The patient denies any chest pain, shortness of breath, or palpitation. The patient had cardiac catheterization 2-3 years ago, which showed nonobstructive c oronary artery disease, ejection fraction 73%. History of idiopathic hypertrophic subaortic stenosis without significant pressure gradient, moderate tricuspid regurgitation, moderate pulmonary regurgit ation. The patient also had decompensated congestive heart failure secondary to diastolic dysfunctio n. PHYSICAL EXAMINATION: VITAL SIGNS: Blood pressure is 129/53, respirations 18, pulse 73, temperature 97.8. HEAD: Normocephalic. EYES: Pupils normal. Conjunctivae slightly pale. NECK: JVP low. Carotid equal. THORAX: AP diameter normal. LUNGS: A few rales on the right base, otherwise lungs are clear. CARDIOVASCULAR: S1, S2, ejection systolic murmur. No rub. ABDOMEN: Soft, no tenderness, no organomegaly. EXTREMITIES: No clubbing, no cyanosis. LABORATORIES: WBC 9.4, hemoglobin 9.4, hematocrit 29.0, platelets 224. Sodium 129, potassium 4.1, B UN 67, creatinine 1.2, sugar 261, calcium 8.6. DIAGNOSES: Decompensated congestive heart failure, acute on chronic, secondary to diastolic dysfunct ion of left ventricle, obesity, chronic obstructive pulmonary disease, diabetes, very sensitive to be ta luis, Cardizem and digoxin, nonobstructive coronary artery disease, left ventricular ejection f raction 73%. Echo suggested of idiopathic hypertrophic subaortic stenosis without any significant pr essure gradient, moderate tricuspid regurgitation, moderate pulmonary regurgitation. PLAN: Continue physical therapy. Continue to avoid beta luis, Cardizem and digoxin. The patient on hand nebulizer therapy, Cozaar 100 mg daily, insulin as ordered, Lovenox 40 subQ daily, amlodipin e 10 mg daily, prednisone 5 mg daily. We will continue present therapy. We will follow with you. Belle Adame MD cc: [id number] TT: 10/23/2016 12:21:51 Confirmation # [id number] Dictation # [id number] en
--- NOTE | 2016-10-23 13:45 | PN ---
DATE: 10/22/2016 The patient is stable. She started feeling better. She is walking better, dizziness is less. Curre ntly on IV fluid. PHYSICAL EXAMINATION: VITAL SIGNS: Temperature 97, heart rate 89, blood pressure 130/51, respirations 18, saturation 94% o n room air. HEAD AND NECK: Normal. No JVD, no thyromegaly. CHEST: Clear, good entry. CARDIAC: First and second sounds are normal. There is a systolic murmur in the aortic area. ABDOMEN: Soft, obese, nontender. EXTREMITIES: No edema. NEUROLOGIC: Normal. LABORATORY DATA: WBC 11.7, hemoglobin is 10.6, hematocrit 33.1, platelets 250. Sodium 132, potassium 4.4, chloride 92, bicarbonate 31, BUN 78, creatinine 1.5. Blood sugar is 164. IMPRESSION AND PLAN: 1. Acute renal failure, dehydration. Continue IV fluid increase to 75 mL per hour. She is stable h emodynamically. 2. History of congestive heart failure, subaortic stenosis. Continue IV fluid, which helps the card iovascular system. 3. Diabetes. Continue insulin, continue current medications. We may resume metformin once renal fu nction gets back to normal. 4. Obstructive sleep apnea, chronic obstructive pulmonary disease, history of aspiration pneumonia. Currently off antibiotic, doing well. 5. Vertigo, dizziness, unsteady gait. Continue physical therapy. She feels stable, better. Continue current treatment. Follow up clinically. Osmar Ponce MD cc: [phone] TT: 10/23/2016 13:45:32 Confirmation # [id number] Dictation # [id number] judi
--- NOTE | 2016-10-23 14:49 | PN ---
DATE: 10/23/2016 SUBJECTIVE: The patient is seen sitting in chair. She is awake. She is alert. She is uncomfortabl e. She reports she is sick. Unable to elaborate. PHYSICAL EXAMINATION: GENERAL: Elderly lady sitting in chair. VITAL SIGNS: Blood pressure 129/50, heart rate is 73, respiratory rate 18, temperature 97.8. HEENT: Normocephalic, atraumatic. NECK: Supple, no JVD. LUNGS: Bilateral coarse crackles diffuse, bilateral rhonchi. CARDIAC: S1, S2, regular rate and rhythm, no murmur, no rub. ABDOMEN: Obese, distended, soft, nontender, bowel sounds present. EXTREMITIES: 1+ pitting edema of the lower extremities. INTAKE AND OUTPUT: Not charted. LABORATORY DATA: WBC 9.4, hemoglobin 9.4, hematocrit 29, platelets 224. Sodium 129, potassium 4.1, chloride 95, CO2 30, BUN 67, creatinine 1.2, glucose 146, calcium 8.6. Urinalysis: Yellow, clear, p H 6.0, specific gravity less than 1.005, protein negative, glucose greater than 1000, ketones negativ e, leukocyte esterase trace, WBC 0-2. Urine sodium 7, urine osmolality 433. CURRENT MEDICATIONS: Meclizine, Ativan, Cepacol, losartan 100, Humulin, Levemir, enoxaparin, amlodip ine 10, Protonix, Tessalon. ASSESSMENT: 1. Acute kidney injury, slowly resolving. 2. Hyponatremia, suspect syndrome of inappropriate antidiuretic hormone secretion. 3. Congestive heart failure, diastolic dysfunction. 4. Status post sepsis. 5. Non-insulin dependent diabetes mellitus. 6. Hypertension. PLAN: 1. Continue to monitor off IV fluids. 2. Restart diuretic. 3. Monitor sodium. 4. Intensify glycemic control. Rosa Beverly MD cc: [id number] TT: 10/23/2016 14:48:11 Confirmation # [id number] Dictation # [id number] jn
--- NOTE | 2016-10-23 21:02 | PN ---
DATE: 10/23/2016 The patient is in bed in no acute distress. She was seen earlier this morning in room 314. PHYSICAL EXAMINATION: VITAL SIGNS: Temperature is 98, blood pressure is 94/40, respiratory rate of 20, heart rate of 70. HEENT: Unremarkable. NECK: Supple. LUNGS: Have decreased breath sounds. HEART: Normal S1, S2. ABDOMEN: Soft. LABORATORY DATA: Reveals a white count of 9.4. BUN of 67, creatinine of 1.2. Urinalysis is noted. Microbiology reveals the blood cultures are negative. ASSESSMENT AND PLAN: This is a 71-year-old female who was in acute care, was treated for bradycardia with severe sepsis, was extubated, intubated and extubated on her last admission in acute care what appeared to be a bacterial possible gram-positive cocci, possible gram-negative farooq pneumonia, elevated procalcitonin. The patient also has had an extended-spectrum beta-lactamase Escherichia col i, Klebsiella in the urine, had completed doxycycline and meropenem off of antibiotics and the patien t is on prednisone for mild leukocytosis so this may be secondary to the prednisone. Review of the o rders reveals the patient is now off of the prednisone and the patient's white count now is 9.4 and a febrile. She is at risk for developing nosocomial infections. Dr. Ponce's from today is reviewed. The patient was seen earlier this morning. Saturnino Leyva MD cc: 350 TT: 10/23/2016 21:00:54 Confirmation # [id number] Dictation # [id number] dn
[2016-10-24] MEDS: Albuterol 0.083% Inhal Sol (2.5 mg/3 mL) UD IH SCH ×5 (00:27→20:38)
[2016-10-24] MEDS: Pantoprazole 40 mg EC Tab PO SCH (05:49)
[2016-10-24] MEDS: Insulin Detemir 100 units/ml Vial (Levemir) SC SCH ×2 (06:31→18:09)
[2016-10-24] MEDS: Insulin Reg-HIGH-Coverage SC SCH ×4 (06:31→22:12)
[2016-10-24] MEDS: Enoxaparin 40 mg Syringe SC SCH (10:59)
[2016-10-24 12:18] LABS: ADD MANUAL DIFF? NO
[2016-10-24 12:28] LABS: EOS # 0.3 (0.0-0.7); EOS % 2.9 % (1.5-5.0); GRAN # 6.69 (1.4-6.5); GRAN % 77.2 % (50.0-68.0); LYMPH # 0.9 (1.2-3.4); LYMPH % 10.6 % (22.0-35.0); MEAN CELL VOLUME 83.8 fL (80.0-105.0); MEAN CORPUSCULAR HEMOGLOBIN 27.3 pg (25.0-35.0); MEAN CORPUSCULAR HGB CONC 32.6 g/dl (31.0-37.0); MEAN PLATELET VOLUME 10.7 fl (7.0-11.0); MONO # 0.8 (0.1-0.6); MONO % 9.3 % (1.0-6.0); PLATELET COUNT 233 10^3/uL (120.0-450.0); RED CELL DISTRIBUTION WIDTH 14.3 % (11.5-14.5); WHITE BLOOD COUNT 8.7 10^3/ul (4.5-11.0)
[2016-10-24 12:34] LABS: CALCIUM 8.9 mg/dL (8.4-10.5); MAGNESIUM 1.7 mg/dL (1.7-2.2); PHOSPHOROUS 3.9 mg/dL (2.5-4.5); POTASSIUM 4.1 mmol/L (3.6-5.0)
--- NOTE | 2016-10-24 14:07 | PN ---
DATE: 10/24/2016 The patient seen earlier in room 314, no fevers and chills. PHYSICAL EXAMINATION: VITAL SIGNS: Temperature is 98, blood pressure is 150/50, respiratory rate of 18. HEENT: Unremarkable. NECK: Supple. LUNGS: Decreased breath sounds. HEART: Normal S1, S2. ABDOMEN: Soft, nontender. LABORATORY EXAMINATION: Reveals a white count of 8.7, hemoglobin of 10, platelets of 233 and a BUN o f 61, creatinine of 1.2. Urinalysis is noted. Microbiology is noted. ASSESSMENT AND PLAN: A 71-year-old female with bradycardia, severe sepsis, was intubated, now extuba mark and bacterial possible gram-positive cocci, possible gram-negative farooq pneumonia with an elevated procalcitonin, extended-spectrum beta-lactamase Escherichia coli in the urine, complete with doxycyc line and meropenem. The patient was on prednisone. Currently now, normal white count of 8.7 and off of antibiotics, off of steroids. Would discontinue the heparin lock in the left arm to minimize dev eloping nosocomial infections. Saturnino Leyva MD cc: 350 TT: 10/24/2016 14:06:17 Confirmation # [id number] Dictation # [id number] tn
--- NOTE | 2016-10-24 14:08 | PN ---
DATE: 10/24/2016 SUBJECTIVE: The patient is seen sitting in bed. She is eating lunch. She does not appear to be in any kind of distress. PHYSICAL EXAMINATION: VITAL SIGNS: Blood pressure 153/52, heart rate 78, respiratory rate 18, temperature 98.7. HEENT: Normocephalic, atraumatic. NECK: Supple, no JVD. LUNGS: Bilateral equal air entry, bilateral crackles, bilateral rhonchi. CARDIAC: S1, S2, regular rate and rhythm, no murmur, no rub. ABDOMEN: Obese, distended, soft, nontender, bowel sounds present. EXTREMITIES: 1+ pitting edema of the lower extremities. INTAKE AND OUTPUT: Not charted. LABORATORY DATA: WBC 8.7, hemoglobin 10.1, hematocrit 31, platelets 233. Sodium 132, potassium 4.1, chloride 97, CO2 28, BUN 61, creatinine 1.2, glucose 249, calcium 8.9, phosphorus 3.9, magnesium 1.7 . CURRENT MEDICATIONS: DuoNeb, Antivert, Ativan, Cepacol, Cozaar 100, insulin, Lasix 40 IV daily, amlo dipine 10, Protonix. ASSESSMENT: 1. Acute kidney injury, resolving. 2. Hyponatremia, syndrome of inappropriate antidiuretic hormone secretion, hypervolemia. 3. Congestive heart failure, diastolic heart failure. 4. Status post sepsis. 5. Non-insulin dependent diabetes mellitus. 6. Hypertension. 7. Morbid obesity. PLAN: 1. Continue IV Lasix 40 mg daily. 2. Monitor daily weights. 3. Monitor electrolytes every other day. 4. Avoid nephrotoxins. 5. Continue antihypertensives. 6. Continue fingersticks and insulin coverage. Rosa Beverly MD cc: [phone] TT: 10/24/2016 14:07:22 Confirmation # [id number] Dictation # [id number] dn
--- NOTE | 2016-10-24 18:34 | PN ---
DATE: 10/23/2016 DATE: 10/23/2016. The patient feels better, walking better. Still needs some help, but she feels better. No short of breath, no chest pain. No dizziness. She is more awake, more talkative, eating good. No new compla ints. PHYSICAL EXAMINATION 10/23: GENERAL: The patient in bed, comfortable, no distress. VITAL SIGNS: Temperature is 98, heart rate 74, blood pressure 134/53, respirations 20, saturation 98 %. HEAD AND NECK: Normal. No JVD, no thyromegaly. CHEST: Clear, good air entry. CARDIAC: First and second sounds are normal. ABDOMEN: Soft, obese, nontender. EXTREMITIES: There is mild trace edema on the lower extremity bilateral. NEUROLOGIC: Normal. LABORATORY DATA: White count 9.4, which is normal, hemoglobin 9.4, hematocrit 29, platelets 224. Ch emistry noted for sodium 129, potassium 4.1, chloride 97, bicarbonate 30, BUN 67, creatinine 1.2, blo od sugar 146 which seems better. IMPRESSION AND PLAN: 1. Status post respiratory failure, congestive heart failure, chronic obstructive pulmonary disease exacerbation. The patient clinically better. She is off the steroids p.o. She is currently on Lasi x 40 IV, off IV fluids. We will continue current management. Follow up with the marine steamfitter, Dr. Luis regalado. The patient clinically better and her BUN and creatinine is improving. 2. Diabetes, still a little bit on the high side, but will continue current medications. The patien t getting insulin coverage, high insulin. We may reduce that. We may consider putting the patient b ack on metformin since her kidney function is better and maybe we will put her back on Januvia also. Will start doing that and reduce insulin, Levemir, dosage and will go from there. Continue current treatment. Osmar Ponce MD cc: [phone] TT: 10/24/2016 18:34:14 Confirmation # [id number] Dictation # [id number] geovanny
--- NOTE | 2016-10-24 19:11 | PN ---
DATE: 10/24/2016 REFERRING PHYSICIAN: Dr. Ponce. SUBJECTIVE: The patient is lying in bed in bed, night was unremarkable. Tolerated CPAP well. ____ f eels okay, a little tired. No nausea, no vomiting, no diarrhea. No leg pain or leg swelling. OBJECTIVE: GENERAL: No acute distress. VITAL SIGNS: Temperature is 98, heart rate is 88, respiratory rate is 18, blood pressure 112/59, pul se ox 95% on room air. HEENT: Moist mucous membranes. Crowded airway. Mallampati score is 4. NECK: Supple. No JVD. LUNGS: Have a fair airflow with few rhonchi. HEART: S1 and S2. ABDOMEN: Soft, nontender. No organomegaly. EXTREMITIES: There is not much edema. NEUROLOGIC: Awake, alert, follows simple commands. MEDICATIONS: She is on albuterol-Atrovent nebulizer q. 6 hours, Antivert 12.5 mg q. 8 hours, Ativan 0.5 mg q. 6 hours p.r.n., Cepacol lozenges q. 2 hours p.r.n., Cozaar 100 mg daily, metformin 1000 mg twice a day, insulin coverage, Januvia 100 mg daily, Lasix 40 mg IV daily, Levemir 20 units subQ, a.c .b., Levemir 15 units subQ a.c.b., ____ , Norvasc 10 mg daily, Protonix 40 mg daily, Tessalon Perles 100 mg 3 times a day. LABORATORY DATA: Shows hemoglobin 10.1, hematocrit ____, WBC 8.7, platelet is 233. Sodium 132, pota ssium 4.1, chloride 97, bicarbonate 28, BUN 61, creatinine 1.2, glucose 249, calcium 8.9, phosphorus 3.9, magnesium is 1.7. Microbiology: Blood cultures have been negative. IMPRESSION AND PLAN: Cardiomyopathy with cardiac diastolic dysfunction, severe pulmonary hypertensio n, hypertension, diabetes, lumbar radiculopathy, status post pneumonia, ADL dysfunction. Continue to encourage BiPAP use, keep head at 45 degrees, gastric prophylaxis. Deep venous thrombosis prophylax is. Fall precaution. Thank you and will follow with you. Belle Lopez MD cc: [phone] TT: 10/24/2016 19:10:09 Confirmation # [id number] Dictation # [id number] jn
[2016-10-25] MEDS: Albuterol 0.083% Inhal Sol (2.5 mg/3 mL) UD IH SCH ×4 (01:14→21:18)
[2016-10-25] MEDS: Pantoprazole 40 mg EC Tab PO SCH (05:42)
[2016-10-25] MEDS: Insulin Reg-HIGH-Coverage SC SCH ×4 (06:37→22:55)
[2016-10-25] MEDS: Insulin Detemir 100 units/ml Vial (Levemir) SC SCH ×2 (06:38→17:48)
--- NOTE | 2016-10-25 09:20 | PN ---
DATE: 10/25/2016 The patient is in bed, in no acute distress, nontoxic. PHYSICAL EXAMINATION: VITAL SIGNS: Temperature is 98, blood pressure is 112/50, respiratory rate of 16. HEENT: Unremarkable. NECK: Supple. LUNGS: Have decreased breath sounds. HEART: Normal S1, S2. ABDOMEN: Soft, nontender, no organomegaly, no rebound, no guarding, no masses. LABORATORY EXAMINATION: Reveals a white count of 8.7, hemoglobin of 10, platelets of 233. BUN of 61 , creatinine of 1.2. Microbiology reveals the blood cultures have no growth. Currently, the patient is off of antibiotics. Dr. Lopez's note is reviewed. He states the patient has cardiomyopathy, cardiac diastolic dysfunction, severe pulmonary hypertension, systemic hypertensi on, diabetes. Dr. Ponce's note is reviewed. ASSESSMENT AND PLAN: A 71-year-old female admitted with bradycardia, severe sepsis and intubated, ex tubated, possible gram-positive cocci, possible gram-negative farooq, elevated procalcitonin, healthcare -associated pneumonia, was treated, extended-spectrum beta-lactamase Escherichia coli in the urine wa s also treated, completed doxycycline and meropenem. The patient was on prednisone. Currently afebr ile, off of antibiotics, off of steroids and patient is on IV Lasix currently and with cardiac diasto lic dysfunction, cardiomyopathy, severe pulmonary hypertension, systemic hypertension, diabetes melli tus, lumbar radiculopathy. The patient is at risk for developing nosocomial infections. Saturnino Leyva MD cc: [phone] TT: 10/25/2016 09:19:43 Confirmation # [id number] Dictation # [id number] en
[2016-10-25] MEDS: Enoxaparin 40 mg Syringe SC SCH (10:34)
[2016-10-25 14:35] LABS: CALCIUM 9.6 mg/dL (8.4-10.5); POTASSIUM 5.1 mmol/L (3.6-5.0)
--- NOTE | 2016-10-25 19:07 | PN ---
DATE: 10/25/2016 REFERRING PHYSICIAN: Dr. Ponce. SUBJECTIVE: She is in the reclining chair. Son is at bedside. was unremarkable. Tolerated B iPAP well. No cough, no sputum production, no nausea, no vomiting, diarrhea. No leg pain or leg swe lling. OBJECTIVE: GENERAL: No acute distress. VITAL SIGNS: Temp is 98, heart rate 89, respiratory rate is 20, blood pressure 129/52, pulse 73% on room air. HEENT: Moist mucous membrane. Crowded airway. NECK: Supple, no JVD. LUNGS: Have a fair airflow with few rhonchi. HEART: S1, S2. ABDOMEN: Soft, nontender. No organomegaly. EXTREMITIES: There is no edema. NEUROLOGIC: Awake, alert, follows simple commands. MEDICATIONS: She is on albuterol-Atrovent nebulizer q. 6 hours, Antivert 12.5 mg q. 8 hours, Ativan 0.5 mg q. 6 hours p.r.n., Cepacol lozenges q. hours p.r.n., Cozaar 50 mg daily, metformin 1000 mg twice a day, insulin coverage, Januvia 100 mg daily, Lasix 40 mg daily, Levemir 20 units subQ a.c. d., Levemir 15 units subQ a.c.b., Lovenox 40 mg daily, Norvasc 10 mg daily, Protonix 40 mg 100 mg 3 times a day. LABORATORY DATA: Reviewed. Sodium 132, potassium 5.1, chloride 97, bicarbonate 26, BUN 55, creatini ne 1.2, glucose 288, calcium is 9.6. Microbiology: Blood cultures have been negative. IMPRESSION AND PLAN: Cardiomyopathy with cardiac diastolic dysfunction, severe pulmonary hypertensio n, hypertension, diabetes, lumbar radiculopathy, status post pneumonia, ADL dysfunction, has a sleep apnea syndrome, but noncompliant with the CPAP/BiPAP as an outpatient, but since in the hospital hermann rated BiPAP well. Need to do attended sleep study as outpatient. I spoke to patient's son at bedsid e. All their questions were answered. Continue therapy. Thank you and will follow with you. Belle Lopez MD cc: [facility] TT: 10/25/2016 19:07:01 Confirmation # [id number] Dictation # [id number] mn
[2016-10-26] MEDS: Albuterol 0.083% Inhal Sol (2.5 mg/3 mL) UD IH SCH ×4 (02:36→22:18)
[2016-10-26] MEDS: Pantoprazole 40 mg EC Tab PO SCH (05:49)
[2016-10-26 06:34] VITALS: RESP 18
[2016-10-26] MEDS: Insulin Reg-HIGH-Coverage SC SCH ×4 (06:44→22:24)
[2016-10-26] MEDS: Insulin Detemir 100 units/ml Vial (Levemir) SC SCH ×2 (06:45→17:21)
--- NOTE | 2016-10-26 08:37 | PN ---
DATE: 10/23/2016 REFERRING PHYSICIAN: Dr. Ponce SUBJECTIVE: She is out of bed to reclining chair. Night was unremarkable. Tolerated ____ well. Pa rticipated in therapy this morning. At present time, she is tired and sleepy. No headache, no rhini tis. Mild cough. No shortness of breath at rest. No nausea, vomiting, diarrhea. Decreased leg swe lling. OBJECTIVE: GENERAL: No acute distress. VITAL SIGNS: Temp is 98, heart rate 73, respiratory rate is 18, blood pressure 129/53, pulse ox 94% on 2 liters nasal cannula. HEENT: Moist mucous membranes. Crowded airway. Mallampati score is 4. NECK: Supple. No JVD. LUNGS: Has a few scattered rhonchi, prolonged expiratory phase. HEART: S1 and S2. ABDOMEN: Soft, nontender. No organomegaly. EXTREMITIES: There is not much edema. NEUROLOGIC: Sleepy, arousable, follows simple command. MEDICATIONS: She is on albuterol-Atrovent nebulizer q.6 hours, Antivert 12.5 mg q.8 hours, Ativan 0. 5 mg q.6 hours p.r.n., Cepacol lozenges q.2 hours p.r.n., Cozaar 100 mg daily, insulin coverage, Leve jami 20 units subQ ACB, also Levemir 15 units subQ ACB, Lovenox 40 mg daily, Norvasc 10 mg daily, pred nisone 5 mg daily, Protonix 40 mg daily, Tessalon Perles 100 mg 3 times a day. LABORATORY DATA: Shows hemoglobin 9.4, hematocrit 29.0, WBC 9.4, platelet is 224. Sodium 129, potas sium 4.1, chloride 95, bicarbonate 30, BUN 67, creatinine 1.2, glucose 146, calcium is 8.6. IMPRESSION AND PLAN: Cardiomyopathy with cardiac diastolic dysfunction, history of pulmonary hyperte nsion, hypertension, diabetes, lumbar radiculopathy, status post pneumonia, status post respiratory f ailure. Presently sitting up in a chair. Continue to encourage ____ use. Bronchodilator, diuretics , afterload powerhouse attendant, gastric prophylaxis, deep venous thrombosis prophylaxis. Fall precaution. Cont inue therapy. Thank you and will follow with you. Belle Lopez MD cc: [phone] TT: 10/23/2016 11:55:42 Confirmation # [id number] Dictation # [id number] sn
[2016-10-26] MEDS: Enoxaparin 40 mg Syringe SC SCH (10:29)
--- NOTE | 2016-10-26 10:30 | PN ---
DATE: 10/24/2016 Seems doing well. She has no new complaint. No chest pain, no short of breath. She walks better wi physical therapy. PHYSICAL EXAMINATION: VITAL SIGNS: Temperature 98.3, heart rate 153/52, respirations 18, saturation 95%. The patient usin g BiPAP machine also every night. HEAD AND NECK: Normal. No JVD, no thyromegaly. CHEST: Clear, good air entry. CARDIAC: First sound, second sound normal. Systolic murmur only aortic area. ABDOMEN: Obese, nontender. EXTREMITIES: Trace edema bilateral. NEUROLOGIC: Normal. LABORATORY STUDIES: Shows white count 8.7, hemoglobin 10.1, hematocrit 31, platelets 233. Chemistry shows sodium 132, potassium 4.1, chloride 97, bicarb 28, BUN 61, creatinine 1.2. Blood sugar is 249 , calcium 8.9, phosphorus 3.9, magnesium 1.7. IMPRESSION: 1. Generalized weakness, deconditioning. Continue physical therapy. The patient seems using the wa lker better. 2. Diabetes. She still is better than before. We will continue to monitor her sugar. Probably weston ackerman seems eating more as per nursing staff. Family member brings some food. Her appetite is good. 3. Hypertension, seems stable. Continue current medications. 4. Renal insufficiency, improved with hydration. Will hold off on any IV fluids. Will stop that an d will continue to monitor her case. 5. Congestive heart failure, subaortic hypertrophic stenosis. Seems stable. PLAN: Continue current treatment. Follow up clinically. Discussed her case with her son about plan for discharge. Osmar Ponce MD cc: [phone] TT: 10/26/2016 10:29:50 Confirmation # [id number] Dictation # [id number] en
--- NOTE | 2016-10-26 10:34 | PN ---
DATE: 10/25/2016 The patient feels a little bit dizzy, especially when she stands, but otherwise no new complaint, no respiratory distress, no other complaints. PHYSICAL EXAMINATION: VITAL SIGNS: Temperature 98.3, heart rate 68, blood pressure 108/68, respirations 20, saturation 99% . HEAD AND NECK: Normal. No JVD, no thyromegaly. CHEST: Clear. Good air entry. CARDIAC: First sound, second sound normal. There is systolic murmur aortic area. ABDOMEN: Soft, obese, nontender. EXTREMITIES: Mild edema in the foot area. NEUROLOGIC: Normal. LABORATORY DATA: Shows on the , sodium 132, potassium 5.1, chloride 95, bicarbonate 23, BUN 51, creatinine 1.2, blood sugar 288 and her calcium 9.6. IMPRESSION AND PLAN: 1. Dizziness, unsteady, probably blood pressure on the low side. We will reduce the Cozaar to 50 mg every day and continue rest of medications the same. We will monitor the blood pressure on a daily basis. The patient planned to be discharged tomorrow. We will follow up clinically. 2. Diabetes, seems still runs high, probably eating more. Maybe will increase the insulin regimen a nd I rather keep the patient on a little bit high sugars than getting hypoglycemia, and should be adj usted as outpatient. Continue metformin 1000 mg. Continue Januvia 100 mg. She will be receiving as outpatient, Victoza, so we will keep the Levemir as it is, 15 units in the morning and 20 units at n ight. Continue current treatment. 3. Gait disorder. Continue physical therapy. The patient seems doing well. 4. Congestive heart failure. Continue Lasix 40 mg p.o. daily. Her chemistry seems okay without any potassium replacement, so we will continue Lasix 40 mg 1 a day and Cozaar 50 once a day with that. Continue current treatment. Osmar Ponce MD cc: [phone] TT: 10/26/2016 10:33:34 Confirmation # [id number] Dictation # [id number] en
--- NOTE | 2016-10-26 13:06 | PN ---
DATE: 10/26/2016 The patient in room 314, bed 1. REASON FOR CONSULTATION AND FOLLOWUP: Bradycardia, episode of hypertension, status post respiratory distress. HISTORY OF PRESENT ILLNESS: A 71-year-old female who was admitted to the hospital with respiratory d istress, was intubated and then successfully extubated. The patient also developed bradycardia and h ypotension, which was related to sensitivity to the medication. The patient very sensitive to Cardiz em, beta luis and digoxin. The patient 3 times had 3 episodes of this type of bradycardia due to medication, so medication was stopped and patient's heart rate became normal and maintaining that. T he patient now in transitional care unit for deconditioning and physical therapy. The patient sittin g in chair comfortably without chest pain, shortness of breath, palpitation. PHYSICAL EXAMINATION: VITAL SIGNS: Blood pressure 120/59, respirations 18, pulse 76, temperature 98.1. HEAD: Normocephalic. EYES: Pupils normal. Conjunctivae slightly pale. NECK: JVP low. Carotid equal. THORAX: AP diameter normal. LUNGS: Basilar rales. CARDIOVASCULAR: S1, S2, systolic murmur, no rub. ABDOMEN: Soft, no tenderness, no organomegaly. EXTREMITIES: No clubbing, no cyanosis. LABORATORY DATA: WBC 8.7, hemoglobin 10.1, hematocrit 31.0, platelet 233. Sodium 132, potassium 5.1 , BUN 51, creatinine 1.2, sugar 167, calcium 9.6. DIAGNOSES: Decompensated congestive heart failure, gsjht-up-agulged; diastolic dysfunction of left v entricle, obesity, chronic obstructive pulmonary disease, diabetes, very sensitive to beta luis, C ardizem and digoxin; nonobstructive coronary artery disease on, 2-3 years ago, cardiac catheterizatio n with ejection fraction of 73%. 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 PLAN: The patient on meclizine 12.5 mg p.o. q.8 hours, Cozaar 50 mg p.o. daily, metformin 1000 mg b. i.d., Januvia 100 mg p.o. daily, furosemide 40 mg p.o. daily, insulin as ordered, Lovenox 40 mg subQ daily, amlodipine 10 mg daily, Protonix 40 daily. Continue physical therapy. We will follow with erin jennings. Belle Adame MD cc: [phone] TT: 10/26/2016 13:05:54 Confirmation # [id number] Dictation # [id number] sn
[2016-10-26] MEDS ORDERED: Menthol/Methyl Salicylate Ointment(1 oz) TOP PRN (13:41)
--- NOTE | 2016-10-26 14:59 | RAD ---
PROCEDURE: Radiographs of the Right Shoulder HISTORY: PAIN COMPARISON: No prior. FINDINGS: BONES: Normal. No fracture. JOINTS: Normal. Glenohumeral and acromioclavicular joints preserved. No osteoarthritis. SOFT TISSUES: Normal. OTHER FINDINGS: None. IMPRESSION: No acute findings
[2016-10-26] MEDS ORDERED: MethylPREDNISolone Depo 40 mg/ml Inj IM ONE (15:24)
[2016-10-26] MEDS ORDERED: Bupivacaine 0.5% Inj(30mL) IJ ONE (15:24)
--- NOTE | 2016-10-26 16:52 | PN ---
DATE: 10/26/2016 SUBJECTIVE: The patient is seen sitting in chair. She is resting comfortably. She does not appear to be in any ____ distress. PHYSICAL EXAMINATION: VITAL SIGNS: Blood pressure 120/59, heart rate 104, respiratory rate 18, temperature 98.1. HEENT: Normocephalic, atraumatic. NECK: Supple, no JVD. LUNGS: Bilateral equal air entry, bilateral minimal rales, equal expansion. CARDIAC: S1, S2, regular rate and rhythm, no murmur, no rub. ABDOMEN: Obese, distended, soft, nontender, bowel sounds present. EXTREMITIES: No lower extremity edema. LABORATORY DATA: WBC 8.7, hemoglobin 10, hematocrit 31, platelets 233. Sodium 132, potassium 5.1, c hloride 95, CO2 of 23, BUN 51, creatinine 1.2, glucose 288, calcium 9.6. CURRENT MEDICATIONS: DuoNeb, Antivert, Ativan, Cepacol, Cozaar 50, Glucophage, insulin, Januvia, Las ix 40 p.o. daily, amlodipine 10, Protonix. ASSESSMENT: 1. Resolving acute kidney injury. 2. Dilutional hyponatremia. 3. Mild hyperkalemia. 4. Congestive heart failure, diastolic dysfunction. 5. Hzo-qvdmabr-zeslpizhk diabetes mellitus. 6. Hypertension. PLAN: 1. Continue Lasix. 2. Keep O's greater than I's. 3. Daily weights. 4. Monitor potassium. 5. Continue antihypertensives. 6. Continue physical therapy. Rosa Beverly MD cc: [phone] TT: 10/26/2016 16:52:10 Confirmation # [id number] Dictation # [id number] sn
--- NOTE | 2016-10-26 17:16 | CON ---
DATE: 10/26/2016 She is a 71-year-old female who complains of pain in right right shoulder, right hand dominant. 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 She is on prednisone for medical conditions and we took the opportunity to inject the right shoulder. We gave her Depo-Medrol and Marcaine. There was no fluid to be aspirated, but hopefully this will help her inflammation from the arthritis which could come from a side effect from the prednisone. Hopefully, she feels better and I can always follow her in the office if she needs to be. seen as an out patient Arthritis, right shoulder. PLAN: We injected her with Depo-Medrol and Marcaine for some pain relief even though it will be temporary. Cristo Bray DO cc: [id number] TT: 10/26/2016 17:15:28 Confirmation # [id number] Dictation # [id number] mn [id number]
--- NOTE | 2016-10-26 18:12 | CP.PCM.PN ---
Subjective - Date & Time of Evaluation Date of Evaluation: 10/26/16 Time of Evaluation: 10:35 - Subjective Subjective: Comfortable, not in distress, no fevers overnight. Objective - Vital Signs/Intake and Output Vital Signs (last 24 hours): Temp Pulse Resp BP Pulse Ox 98.1 F 76 18 120/59 L 94 L 10/26/16 06:00 10/26/16 06:00 10/26/16 06:00 10/26/16 06:00 10/26/16 06:00 - Medications Medications: Current Medications Albuterol Sulfate (Albuterol 0.083% Inhal Radha (2.5 Mg/3 Ml) Ud) 2.5 mg IH [id number] SONYA PRN Reason: Protocol Last Admin: 10/26/16 07:30 Dose: 2.5 mg Amlodipine Besylate (Norvasc) 10 mg PO DAILY SONYA PRN Reason: Protocol Last Admin: 10/25/16 10:34 Dose: 10 mg Benzocaine/Menthol (Cepacol Sore Throat) 1 tahir MT Q2H PRN PRN Reason: Sore Throat Benzonatate (Tessalon Perles) 100 mg PO TID SONYA Last Admin: 10/25/16 17:51 Dose: 100 mg Enoxaparin Sodium (Lovenox) 40 mg SC DAILY SONYA PRN Reason: Protocol Last Admin: 10/25/16 10:34 Dose: 40 mg Furosemide (Lasix) 40 mg PO DAILY SONYA PRN Reason: Protocol Last Admin: 10/25/16 11:59 Dose: 40 mg Insulin Detemir (Levemir) 20 unit SC ACD SONYA PRN Reason: Protocol Last Admin: 10/25/16 17:48 Dose: 20 unit Insulin Detemir (Levemir) 15 unit SC ACB SONYA PRN Reason: Protocol Last Admin: 10/26/16 06:45 Dose: 15 unit Insulin Human Regular (Humulin R High) 0 units SC ACHS SONYA PRN Reason: Protocol Last Admin: 10/26/16 06:44 Dose: 2 units Lorazepam (Ativan) 0.5 mg IVP Q6H PRN; Protocol PRN Reason: Anxiety Losartan Potassium (Cozaar) 50 mg PO DAILY SONYA PRN Reason: Protocol Meclizine HCl (Antivert) 12.5 mg PO Q8 SONYA PRN Reason: Protocol Last Admin: 10/26/16 05:49 Dose: 12.5 mg Metformin HCl (Glucophage) 1,000 mg PO BID [facility] Last Admin: 10/25/16 17:52 Dose: 1,000 mg Pantoprazole Sodium (Protonix Ec Tab) 40 mg PO 0630 [facility] PRN Reason: Protocol Last Admin: 10/26/16 05:49 Dose: 40 mg Sitagliptin Phosphate (Januvia) 100 mg PO DAILY [facility] Last Admin: 10/25/16 10:33 Dose: 100 mg - Labs Labs: 10/24/16 12:10 10/25/16 14:00 - Constitutional Appears: Non-toxic, No Acute Distress - Head Exam Head Exam: NORMAL INSPECTION - ENT Exam ENT Exam: Mucous Membranes Moist - Neck Exam Neck Exam: absent: Lymphadenopathy, Meningismus - Respiratory Exam Respiratory Exam: Decreased Breath Sounds - Cardiovascular Exam Cardiovascular Exam: +S1, +S2 - GI/Abdominal Exam GI & Abdominal Exam: Soft. 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
--- NOTE | 2016-10-26 22:53 | PN ---
DATE: 10/26/2016 REFERRING PHYSICIAN: Dr. Ponce. SUBJECTIVE: She is lying in the reclining chair. Night was unremarkable. Tolerated BiPAP well. Feel s better. Doing well in therapy. Son is at bedside. No nausea, no vomiting, no diarrhea, no leg devonte n or leg swelling. OBJECTIVE: GENERAL: No acute distress. VITAL SIGNS: Temperature is 98, heart is 80, respiratory rate is 20, blood pressure 116/50, pulse ox 97% on room air. HEENT: Moist mucous membranes. Crowded airway. Mallampati score is 4. NECK: Supple. No JVD. LUNGS: Has a few crackles at the bases. HEART: S1, S2. ABDOMEN: Soft, nontender. No organomegaly. EXTREMITIES: There is no edema. NEUROLOGIC: Awake, alert, follows simple commands. MEDICATIONS: He is on albuterol/Atrovent nebulizer q. 6 hours mg q. 8 hours, Ativan 0.5 mg q. 6 hours p.r.n., Magen-Harris to affected area 4 times a day, Cepacol lozenges q. 12 hours p.r.n., Cozaar 5 0 mg daily, Ecotrin 81 mg daily, metformin 1000 mg twice a day, insulin coverage, Januvia 100 mg idalmis y, Lasix mg daily, Levemir 20 units subQ , also Levemir 15 units subQ , Lovenox 40 mg daily, Norvasc 10 mg daily, Protonix 40 mg daily, Tessalon Perles 100 mg 3 times a day, Tylenol on a p.r.n. basis. LABORATORY DATA: Reviewed. Blood sugar this morning 167. Had a shoulder x-ray done today, which sh ows no acute findings. IMPRESSION AND PLAN: Cardiomyopathy with cardiac diastolic dysfunction, severe pulmonary hypertensio n, hypertension, diabetes, lumbar radiculopathy, status post pneumonia, activities of daily living dy sfunction, sleep apnea syndrome. I spoke to patient and family at bedside. All the questions answer ed. Hypertrophic cardiomyopathy and its relation to the sleep apnea discussed. The patient needs to get for the CPAP and needs titration to adjust the pressures upon discharge. For now, continue BiPAP while in the hospital. We will follow. Belle Lopez MD cc: [phone] TT: 10/26/2016 22:52:41 Confirmation # [id number] Dictation # [id number]
[2016-10-27] MEDS: Pantoprazole 40 mg EC Tab PO SCH (05:35)
[2016-10-27] MEDS: Insulin Reg-HIGH-Coverage SC SCH (06:46)
[2016-10-27] MEDS: Insulin Detemir 100 units/ml Vial (Levemir) SC SCH (06:47)
[2016-10-27] MEDS: Albuterol 0.083% Inhal Sol (2.5 mg/3 mL) UD IH SCH ×2 (07:13→08:00)
--- NOTE | 2016-10-27 09:45 | RAD ---
PROCEDURE: Right Hand Radiographs. HISTORY: right hand pain, tremor, weakness COMPARISON: None. FINDINGS: BONES: Normal. No fracture. JOINTS: Degenerative changes are seen in the 1st DIP joint. There is an old fracture deformity or erosion of the head of the 2nd metacarpal. SOFT TISSUES: Normal. OTHER FINDINGS: None. IMPRESSION: No acute findings
[2016-10-27] MEDS ORDERED: Insulin Detemir 100 units/ml Vial (Levemir) SC SCH (10:00)
--- NOTE | 2016-10-27 10:16 | PN ---
DATE: 10/26/2016 The patient today complained of right hand tremors, also right hand she ____ lift it up and tender on touch. The patient also feels tremoring when she ____ her hand, but she is able to move her fingers . She is ____ to lift her hands up, but there is shoulder pain and there is hand pain to touch. PHYSICAL EXAMINATION: VITAL SIGNS: Temperature 98, heart rate 76, blood pressure 120/59, respiratory rate 18, saturation 9 7% on room air. HEAD AND NECK: Normal. No JVD, no thyromegaly. CHEST: Clear, good air entry. CARDIAC: First sound, second sound normal. There is systolic murmur in the aortic area. ABDOMEN: Obese, nontender. EXTREMITIES: Mild edema of lower extremities. NEUROLOGIC: She moves all hands, all extremities. RIGHT HAND: Right shoulder reduced range of motion due to pain. Also hand is tender to touch. She moves all her extremities. LABORATORY DATA: Blood sugar 167, 240, 220 - is coming down. IMPRESSION AND PLAN: 1. Right hand and right shoulder pain. Will get x-ray of right shoulder. Will get Dr. Bray ; maybe a steroid shot will help her right shoulder pain. 2. Right hand tenderness to touch intravenous site. Will give lidocaine analgesia to that site and will see how she does. Also will give the patient baby aspirin every day just in case it could be be ginning of neurologic problem. 3. Hypertension, seems stable. Pressure runs on the low side to 110. Will discontinue Cozaar compl etely and keep the patient only on Norvasc 10 mg. Seems doing well with the lower dose. 4. Congestive heart failure. Continue Lasix 40 p.o. daily. No need for potassium. 5. Diabetes. Will increase her insulin coverage, especially with the steroid injection. She will n eed more steroid and will consider increasing her insulin coverage. Also, patient advised to reduce her intake of any bananas and has a lot of sugar. She has a bunch of bananas ____ but reduce those a nd reduce the amount of food. 6. Hypercholesterolemia. Continue current treatment. The patient getting current medications right now: Tylenol p.r.n. for hand pain, Tessalon Miguel, Pr otonix 40, Prandin 0.5 mg a.c. meals (we may need to increase that a little bit more), Norvasc 10, Lo venox 40 subQ; Levemir 20 and 15 - will increase that to 20 b.i.d.; Lasix 40 being held, Januvia 100; insulin coverage, will increase her insulin coverage; Glucophage 1000 mg once a day, aspirin was add ed, Cepacol, Magen-Harris to the right hand, Antivert q. 8 hours, albuterol nebulizers. Continue current treatment. Follow up clinically. Discussion with the son. We will further evaluate her right hand with a CT of the hand. Continue aspirin for now. Osmar Ponce MD cc: [phone] TT: 10/27/2016 09:30:23 Confirmation # [id number] Dictation # [id number] 10/27/2016 09:15:15
[2016-10-27 10:28] VITALS: PULSE 94; TEMP 98.3; O2SAT 96
[2016-10-27] MEDS: Enoxaparin 40 mg Syringe SC SCH (10:34)
[2016-10-27 10:40] VITALS: BP 144/60
[2016-10-27] MEDS ORDERED: Insulin Reg-MEDIUM-Coverage SC SCH (11:30)
--- NOTE | 2016-10-27 12:11 | PN ---
DATE: 10/27/2016 REASON FOR CONSULTATION AND FOLLOWUP: Bradycardia, episode of hypotension, status post respiratory d istress secondary to beta luis. BRIEF CLINICAL HISTORY: A 71-year-old female with past medical history significant for diabetes, hyp ertension, hyperlipidemia, nonobstructive coronary artery disease, sensitive to beta luis, Cardize m and digoxin, gets significant bradycardia, third episode admission with the same symptoms. The pat tyron is now in the transitional care unit for deconditioning of the body, getting rehab. Denies any chest pain, shortness of breath, any palpitation. PHYSICAL EXAMINATION: VITAL SIGNS: Temperature afebrile, heart rate 94, blood pressure 137/49. HEENT: PERRLA. Extraocular muscles intact. NECK: Supple. No carotid bruits. No thyromegaly. CHEST: Clear to auscultation. HEART: S1, S2 regular. ABDOMEN: Soft. EXTREMITIES: Clubbing and cyanosis negative. LABORATORY DATA: Blood workup as follows: WBC 8.7, hemoglobin 10.1, hematocrit 31.0, platelet count 233. Chemistry shows sodium 132, potassium 5.0, chloride 95, carbon dioxide 23, anion gap of 19, BU N 51, creatinine 1.2. IMPRESSION: Deconditioning of the body, diabetes, hypertension, hyperlipidemia, obesity, nonobstruct nilton coronary artery disease, very sensitive to beta luis, very sensitive to rate-limiting calcium channel luis and digoxin. Diastolic dysfunction, obesity, history of idiopathic hypertrophic suba ortic stenosis without significant gradient, moderate tricuspid regurgitation, moderate pulmonary reg urgitation, diastolic dysfunction. RECOMMENDATION: Continue meclizine. Continue Cozaar. Avoid beta luis, avoid digoxin, avoid Card izem. Continue physical therapy. Possible discharge today as per the patient Belle Mar MD cc: [id number] TT: 10/27/2016 12:10:46 Confirmation # [id number] Dictation # [id number] tn
--- NOTE | 2016-10-27 17:39 | CP.PCM.PN ---
Subjective - Date & Time of Evaluation Date of Evaluation: 10/27/16 Time of Evaluation: 11:05 - Subjective Subjective: Comfortable, not in distress, afebrile. Objective - Vital Signs/Intake and Output Vital Signs (last 24 hours): Temp Pulse Resp BP Pulse Ox 98.3 F 94 H 18 144/60 96 10/27/16 10:00 10/27/16 10:00 10/27/16 10:00 10/27/16 10:35 10/27/16 10:00 - Labs Labs: 10/24/16 12:10 10/25/16 14:00 - Constitutional Appears: Non-toxic, No Acute Distress - Head Exam Head Exam: NORMAL INSPECTION - Respiratory Exam Respiratory Exam: Decreased Breath Sounds - Cardiovascular Exam Cardiovascular Exam: +S1, +S2 - GI/Abdominal Exam GI & Abdominal Exam: Soft. 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
--- NOTE | 2016-10-28 21:30 | DS ---
This is a 71-year-old female. She came in to TCU because of generalized weakness, status post intuba tion, in ICU, extubated. The patient had pneumonia. She received IV antibiotics. Her condition was noted for generalized weakness, gait disorders, dizziness, vertigo, which was treated with Antivert. ____ consulting the patient saying the patient improved. The last couple of days, the patient felt a little bit dizzy, which resolved later. Also, she had some right hand tremors and right hand pain with holding things, make her feel kind of weak, but otherwise she move her hands very well and fing ers and her shoulder which she received an injection by Dr. Bray because of associated right shoulder pain and decreased range of motions. The patient also has insulin coverage. She treated wi th insulin and other medications. She was also on blood pressure medicines, adjusted because of asso ciated Cozaar is not discontinued and I did explain to the son all the medications in detail about wh at she should take and what she should not take. She has no chest pain. She has no shortness of jay ath, she has no nausea or vomiting and no other complaints. PHYSICAL EXAMINATION: VITAL SIGNS: On discharge: Temperature 98, heart rate 76, blood pressure 136/49, respirations 18, s aturation 96%. HEAD AND NECK: Normal. No JVD, no thyromegaly. CHEST: Clear, good entry. CARDIAC: First and second sounds are normal. ABDOMEN: Soft, obese, nontender. EXTREMITIES: There is mild edema in ankles, otherwise normal. NEUROLOGIC: The patient moves all extremities. No focal deficits. LABORATORY DATA: White count 8.7, hemoglobin 10.1, hematocrit 31, platelets 233. Chemistry noted gr gar in the range of 160-200 range, patient expected the sugar to go up after joint injections with st eroids, explained to the son. The patient also had some x-rays of the hand, which shows some osteoar thritis, no fracture seen. The shoulder x-rays, there is no fracture, some arthritis, degenerative c hanges and no acute findings. Also, the shoulder was negative for osteoarthritis. The patient also had acute renal insufficiency, prerenal and was given IV fluids. Lasix was adjusted to p.o. 40 mg once a day. No Zaroxolyn and seems to be doing well and her kidney function improved. The patient clinically seems better. Will discharge the patient home to follow up with her primary doctor. DISCHARGE DIAGNOSES: 1. Generalized weakness, deconditioning, improved. The patient seems walking with a walker better. 2. Hypertension. The patient's son was explained to discontinue her Cozaar completely and continue Norvasc 10 mg daily. 3. Chronic congestive heart failure. Continue Lasix 40 mg daily. 4. History of cardiac arrhythmia and bradycardia. No beta luis at all. Was not given and was di scontinued. Cardizem also not to be given and discontinued. 5. Diabetes. Continue Levemir, continue her Victoza. If Victoza is going to be used we need to cut down the Levemir to half the dose. She will do that did, explain to follow up with her doctor. Con tinue Januvia and metformin. Also, the patient getting Prandin 0.5 mg before meals. PLAN: Continue current treatment. MEDICATIONS ON DISCHARGE: On discharge patient advised to continue B12, Lipitor 40, Tylenol p.r.n., VESIcare 5 mg daily. Janumet b.i.d., potassium was stopped, Cozaar was stopped, Victoza resu med. Lipase, amylase, ____ she can continue. Neurontin can continue. Lasix 40 once a day, Pepcid 20 b.i.d., Prozac 10 once a day. Continue Norvasc 10 once a day. Continue Protonix 40 mg p.o. daily. Continue Antivert 12.5 mg p.o. q. 8 hours p.r.n. No Cozaar. Levemir 20 units b.i.d., should be red uced to 10 units b.i.d. if Victoza is going to be used. Continue inhalers also as outpatient. Followup in primary care doctor within a week. The patient is free to come to the office for followu p within a week. Osmar Ponce MD cc: [phone] TT: 10/28/2016 21:29:33 geovanny
== END 2016-10-27 13:40 | disposition home or self-care (01) | DRG 871 ==
LOC: TRCU 17:18
PROVIDERS: ADMIT Internal Medicine; ATTEND Internal Medicine
PROC: F07Z9FZ Gait Training/Functional Ambulation Treatment using Assistive, Adaptive, Supportive or Protective Equipment (ICD-10-PCS; principal; 2016-10-20)
PROC: F07M6ZZ Therapeutic Exercise Treatment of Musculoskeletal System - Whole Body (ICD-10-PCS; 2016-10-20)
PROC: F08Z1ZZ Dressing Techniques Treatment (ICD-10-PCS; 2016-10-22)
PROC: F08Z2ZZ Grooming/Personal Hygiene Treatment (ICD-10-PCS; 2016-10-22)
PROC: F08Z0ZZ Bathing/Showering Techniques Treatment (ICD-10-PCS; 2016-10-22)
DX: A41.9 Sepsis, unspecified organism (principal); J15.0 Pneumonia due to Klebsiella pneumoniae; J96.90 Respiratory failure, unspecified, unspecified whether with hypoxia or hypercapnia; I50.33 Acute on chronic diastolic (congestive) heart failure; N17.9 Acute kidney failure, unspecified; I42.1 Obstructive hypertrophic cardiomyopathy; J44.0 Chronic obstructive pulmonary disease with (acute) lower respiratory infection; I13.0 Hypertensive heart and chronic kidney disease with heart failure and stage 1 through stage 4 chronic kidney disease, or unspecified chronic kidney disease; E11.22 Type 2 diabetes mellitus with diabetic chronic kidney disease; I95.9 Hypotension, unspecified; I42.2 Other hypertrophic cardiomyopathy; M87.9 Osteonecrosis, unspecified; N39.0 Urinary tract infection, site not specified; E22.2 Syndrome of inappropriate secretion of antidiuretic hormone; E66.01 Morbid (severe) obesity due to excess calories; E11.65 Type 2 diabetes mellitus with hyperglycemia; C51.9 Malignant neoplasm of vulva, unspecified; R65.20 Severe sepsis without septic shock; M19.011 Primary osteoarthritis, right shoulder; M54.16 Radiculopathy, lumbar region; N18.2 Chronic kidney disease, stage 2 (mild); Z68.37 Body mass index [BMI] 37.0-37.9, adult; Z79.4 Long term (current) use of insulin; B96.1 Klebsiella pneumoniae [K. pneumoniae] as the cause of diseases classified elsewhere; D64.9 Anemia, unspecified; E78.00 Pure hypercholesterolemia, unspecified; E78.5 Hyperlipidemia, unspecified; E86.0 Dehydration; E87.5 Hyperkalemia; G47.33 Obstructive sleep apnea (adult) (pediatric); I08.1 Rheumatic disorders of both mitral and tricuspid valves; I25.10 Atherosclerotic heart disease of native coronary artery without angina pectoris; I27.2 Other secondary pulmonary hypertension; I35.0 Nonrheumatic aortic (valve) stenosis; Z16.12 Extended spectrum beta lactamase (ESBL) resistance; Z79.84 Long term (current) use of oral hypoglycemic drugs; Z82.49 Family history of ischemic heart disease and other diseases of the circulatory system; Z83.3 Family history of diabetes mellitus; Z85.44 Personal history of malignant neoplasm of other female genital organs; Z87.01 Personal history of pneumonia (recurrent); Z91.19 Patient's noncompliance with other medical treatment and regimen; R53.81 Other malaise; R26.81 Unsteadiness on feet; R00.1 Bradycardia, unspecified; T46.1X5A Adverse effect of calcium-channel blockers, initial encounter; Z98.49 Cataract extraction status, unspecified eye; B96.20 Unspecified Escherichia coli [E. coli] as the cause of diseases classified elsewhere; I37.1 Nonrheumatic pulmonary valve insufficiency

== ENCOUNTER 2017-03-06 16:24 | Emergency (ER) | payer MEDICARE, MEDICAID ==
[2017-03-06 16:26] VITALS: BMI 32.8
[2017-03-06] MEDS ORDERED: Nicardipine 20 MG/200 ML 20 MG/200 ML BAG IV PRN (16:29)
[2017-03-06 16:51] LABS: BASO # 0.03 K/mm3 (0.0-2.0); BASO % 0.6 % (0.0-3.0); EOS # 0.2 (0.0-0.7); EOS % 3.3 % (1.5-5.0); GRAN # 3.37 (1.4-6.5); GRAN % 64.6 % (50.0-68.0); HEMATOCRIT 30.2 % (36.0-48.0); LYMPH # 1.1 (1.2-3.4); LYMPH % 21.7 % (22.0-35.0); MEAN CELL VOLUME 79.1 fl (80.0-105.0); MEAN CORPUSCULAR HEMOGLOBIN 25.1 pg (25.0-35.0); MEAN CORPUSCULAR HGB CONC 31.8 g/dl (31.0-37.0); MEAN PLATELET VOLUME 10.1 fl (7.0-11.0); MONO # 0.5 (0.1-0.6); MONO % 9.8 % (1.0-6.0); RED CELL DISTRIBUTION WIDTH 15.8 % (11.5-14.5); WHITE BLOOD COUNT 5.2 10^3/ul (4.5-11.0)
--- NOTE | 2017-03-06 16:52 | CT ---
PROCEDURE: CT HEAD WITHOUT CONTRAST. HISTORY: cva COMPARISON: 10/26/2016 TECHNIQUE: Axial computed tomography images were obtained through the head/brain without intravenous contrast. Radiation dose: Total exam DLP = 761.76 mGy-cm. This CT exam was performed using one or more of the following dose reduction techniques: Automated exposure control, adjustment of the mA and/or kV according to patient size, and/or use of iterative reconstruction technique. FINDINGS: HEMORRHAGE: No intracranial hemorrhage. BRAIN: There are moderate chronic microangiopathic changes. There is subtle asymmetric low density in the right parietal lobe. There is no mass, mass effect or abnormal extra-axial fluid collection. There is asymmetric increased density in the right supraclinoid ICA and M1 segment. VENTRICLES: There is moderate age-related global parenchymal volume loss and proportionate enlargement of the ventricles and cortical sulci. CALVARIUM: The skull base and calvarium are normal. PARANASAL SINUSES: Predominantly clear. MASTOID AIR CELLS: Predominantly clear. OTHER FINDINGS: None. IMPRESSION: Subtle asymmetric hypoattenuation in the right parietal lobe in the MCA distribution and hyperdense right M1 segment. Findings are concerning for acute right MCA territory infarction. An MRI of the brain without intravenous contrast would be a more sensitive modality for evaluation of hyperacute/acute ischemic infarction. Moderate chronic microangiopathic changes and moderate age-related global parenchymal volume loss. Important findings were discussed with Dr. Elkin solano on 03/06/2017 at 4:50 p.m.
[2017-03-06] MEDS ORDERED: Iodixanol 320 MG/ML 100 ML BOTTLE IV ONE (16:59)
--- NOTE | 2017-03-06 16:59 | ED PDOC ---
Arrival/HPI - General Chief Complaint: Weakness/Neurological Deficit Time Seen by Provider: 03/06/17 16:28 Historian: Patient - History of Present Illness Narrative History of Present Illness (Text): 03/06/17 16:24 A 71 year old female, whose past medical history includes type 2 diabetes, hypertension, dyslipidemia, subaortic stenosis, pulmonary hypertension, and junctional bradycardia arrhythmias, BIBA, along with family, to the emergency department for collapse and AMS 30 min prior to arrival. Patient was at home standing and cooking, was witnessed to collapse by son. Patient has left sided weakness per EMS. Son notes she can only speak Bengali but is unclear in what she is saying at this time- says she is not making sense. Limited HPI and ROS due to patient AMS. PMD: Dr. Almeida Past Medical History - Provider Review Nursing Documentation Reviewed: Yes - Infectious Disease Hx of Infectious Diseases: None - Tetanus Immunization Tetanus Immunization: Unknown - Cardiac Hx Cardiac Disorders: Yes (CAD S/P Cardiac Cath) Hx Congestive Heart Failure: Yes Hx Hypertension: Yes - Pulmonary Hx Chronic Obstructive Pulmonary Disease (COPD): Yes - Neurological HX Cerebrovascular Accident: No - HEENT Hx HEENT Disorder: Yes Hx Cataracts: (denies) Other/Comment: according to family pt had b/l eye sx but not for cataracts, unknown what the sx was for - Renal Hx Renal Failure: No - Endocrine/Metabolic Hx Diabetes Mellitus Type 2: Yes - Hematological/Oncological Hx Cancer: No - Integumentary Hx Dermatological Disorder: No - Musculoskeletal/Rheumatological Hx Arthritis: No Hx Rheumatoid Arthritis: No - Gastrointestinal Hx Gastroesophageal Reflux: No - Genitourinary/Gynecological Hx Genitourinary Disorders: No Hx Reproductive Disorders: No - Psychiatric Hx Psychophysiologic Disorder: No Hx Substance Use: No - Surgical History Hx Cardiac Catheterization: Yes Other/Comment: malignant neoplasm of 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 - Anesthesia Hx Anesthesia: Yes Hx Anesthesia Reactions: No Hx Malignant Hyperthermia: No - Suicidal Assessment Feels Threatened In Home Enviroment: No Family/Social History - Physician Review Nursing Documentation Reviewed: Yes Family/Social History: No Known Family HX Smoking Status: Never Smoked Hx Alcohol Use: No Hx Substance Use: No Hx Substance Use Treatment: No Allergies/Home Meds Allergies/Adverse Reactions: Allergies No Known Allergies Allergy (Verified 03/06/17 16:31) Home Medications: Home Meds Medication Instructions Recorded Confirmed Unobtainable 03/06/17 03/06/17 Review of Systems - Review of Systems Systems not reviewed;Unavailable: Altered Mental Status Physical Exam Vital Signs Reviewed: Yes Vital Signs Temp Pulse Resp BP Pulse Ox 03/06/17 17:45 74 14 195/67 H 100 03/06/17 17:29 75 14 255/95 H 100 03/06/17 17:15 98 F 75 15 160/73 H 96 03/06/17 17:02 75 16 181/65 H 100 03/06/17 16:45 81 16 155/56 H 100 03/06/17 16:34 120/87 Appearance: Positive for: Ill-Appearing Mental Status: Positive for: Confused Finger Stick Blood Glucose: 265 - Systems Exam Head: Present: Atraumatic Pupils: Present: PERRL Extroacular Muscles: Present: Other (right gaze dev) Mouth: Present: Moist Mucous Membranes Neck: Present: Other (supple) Respiratory/Chest: Present: Clear to Auscultation. No: Respiratory Distress, Accessory Muscle Use Cardiovascular: Present: Regular Rate and Rhythm Abdomen: No: Distention Upper Extremity: Present: NORMAL PULSES Lower Extremity: Present: Edema Neurological: Present: Other (left side weakness, right gaze dev. moves all ext spontaneously but less on the left. ). No: GCS=15 (GCS=10) Skin: Present: Warm, Dry Psychiatric: No: Oriented x 3 Medical Decision Making ED Course and Treatment: EKG: Ordered, reviewed, and independently interpreted the EKG. Rate : 69 BPM Rhythm : NSR Interpretation : Normal axis, no acute ischemia. Comparison : No previous EKG for comparison. 03/06/17 16:[address] Daly, whom accepts patient to be transferred. 03/06/17 16:[address] Richards, who recommends tPA for patient. 03/06/17 16:52 Disc w patient's son risks/benefits of tpa and rec for transfer. he agrees with plan for transfer and tPA. 03/06/2017 16:[address] HISTORY: cva COMPARISON: 10/26/2016 TECHNIQUE: Axial computed tomography images were obtained through the head/ brain without intravenous contrast. RADIATION DOSE: Total exam DLP = 761.76 mGy-cm. This CT exam was performed using one or more of the following dose reduction techniques: Automated exposure control, adjustment of the mA and/or kV according to patient size, and/or use of iterative reconstruction technique. FINDINGS: HEMORRHAGE: No intracranial hemorrhage. BRAIN: There are moderate chronic microangiopathic changes. There is subtle asymmetric low density in the right parietal lobe. There is no mass, mass effect or abnormal extra-axial fluid collection. There is asymmetric increased density in the right supraclinoid ICA and M1 segment. VENTRICLES: There is moderate age-related global parenchymal volume loss and proportionate enlargement of the ventricles and cortical sulci. CALVARIUM: The skull base and calvarium are normal. PARANASAL SINUSES: Predominantly clear. MASTOID AIR CELLS: Predominantly clear. OTHER FINDINGS: None. IMPRESSION: Subtle asymmetric hypoattenuation in the right parietal lobe in the MCA distribution and hyperdense right M1 segment. Findings are concerning for acute right MCA territory infarction. An MRI of the brain without intravenous contrast would be a more sensitive modality for evaluation of hyperacute/acute ischemic infarction. Moderate chronic microangiopathic changes and moderate age-related global parenchymal volume loss. Important findings were discussed with Dr. Elkin marshall on 03/06/2017 at 4: 50 p.m DICTATOR: PRISCA IRBY MD 03/06/2017 16:56 Chest X-ray HISTORY: CVA COMPARISON: 10/19/2016. FINDINGS: LUNGS: There is mild pulmonary venous congestion. No focal consolidation PLEURA: No significant pleural effusion identified, no pneumothorax apparent. CARDIOVASCULAR: There is moderate cardiomegaly. OSSEOUS STRUCTURES: No significant abnormalities. VISUALIZED UPPER ABDOMEN: Normal. OTHER FINDINGS: None. IMPRESSION: Moderate cardiomegaly and mild pulmonary venous congestion. No acute findings. DICTATOR: PRISCA IRBY MD 03/06/17 17:00 Pushed tPA bolus, followed by infusion. 03/06/17 17:25 PROCEDURE: INTUBATION Performed by the emergency provider Time: 17:25 Consent: Discussion of the risks, benefits, and alternatives to the procedure, along with informed consent was precluded by the urgency of the procedure and the patient condition. Timeout: A timeout to verify the correct patient, procedure, and site was performed. Indication: anticipation of deterioration and need for airway protection Pre-oxygenation: NRB Medications: . See MAR for details. ETT Size: 7.5 Confirmation: Cords directly visualized as tube passed, good bilateral breath sounds, positive CO2 detector color change, tube fogging, adequate chest rise, improving pulse oximetry reading, absence of gastric sounds,. ETT Secured: The cuff was inflated and the tube was secured appropriately at a distance of 22 cm at the lip. Post-Procedure: There were no immediate complications. CXR Confirmation: no Due to the patient's depressed mental status from this large stroke I intubated the pt in anticipation of deterioration during transport. cardene was initiated prior to transfer due to increased BP post intubation. 03/06/2017 17:44 Patient being transported out. - Lab Interpretations Lab Results: 03/06/17 16:40 03/06/17 16:40 Lab Results 03/06/17 17:05: PT 11.7, INR 1.08, APTT 29.2 03/06/17 16:40: Blood Type A POSITIVE, Antibody Screen Negative, BBK History Checked Patient has bt 03/06/17 16:40: Sodium 139, Potassium 4.6, Chloride 105, Carbon Dioxide 21, Anion Gap 18, BUN 70 H, Creatinine 1.8 H, Est GFR ( Amer) 33, Est GFR ( Non-Af Amer) 28, Random Glucose 231 H, Calcium 8.8, Total Bilirubin 0.5, AST 62 H, ALT 201 H, Alkaline Phosphatase 171 H, Troponin I 0.03, Total Protein 7.2, Albumin 3.8, Globulin 3.4, Albumin/Globulin Ratio 1.1, Triglycerides 162 H, Cholesterol 178, LDL Cholesterol Direct 103, HDL Cholesterol 42 03/06/17 16:40: WBC 5.2 D, RBC 3.82, Hgb 9.6 L, Hct 30.2 L, MCV 79.1 L, MCH 25.1, MCHC 31.8, RDW 15.8 H, Plt Count 219, MPV 10.1, Gran % 64.6, Lymph % (Auto ) 21.7 L, Edmunds % (Auto) 9.8 H, Eos % (Auto) 3.3, Baso % (Auto) 0.6, Gran # 3.37 , Lymph # 1.1 L, Edmunds # 0.5, Eos # 0.2, Baso # 0.03 I have reviewed the lab results: Yes - RAD Interpretation Radiology Orders: 03/06/17 16:31 CHEST PORTABLE [RAD] Stat 03/06/17 16:32 HEAD W/O (CODE STROKE) [CT] Stat - Medication Orders Current Medication Orders: Discontinued Medications Alteplase, Recombinant (Activase 100 Mg Inj) 70.15 mg IV ONCE ONE Stop: 03/06/17 16:33 Last Admin: 03/06/17 17:16 Dose: 70.15 mg eMAR Start Stop Document 03/06/17 17:16 (Rec: 03/06/17 17:17 [id number] Intravenous Solution Start Date 03/06/17 Start Time 17:17 Alteplase, Recombinant (Activase 100 Mg Inj) 7.79 mg IV ONCE ONE Stop: 03/06/17 16:33 Last Admin: 03/06/17 17:14 Dose: 7.79 mg Comments: given by Dr Marshall eMAChanelle Start Stop Document 03/06/17 17:14 (Rec: 03/06/17 17:14 [facility] [id number] Intravenous Solution Start Date 03/06/17 Start Time 17:00 End Date 03/06/17 End time 17:05 Total Infusion Time 5 Etomidate (Amidate) Confirm Administered Dose 20 mg IV .STK-MED ONE Stop: 03/06/17 17:21 Last Admin: 03/06/17 17:27 Dose: Etomidate (Amidate) Confirm Administered Dose 20 mg IV .STK-MED ONE Stop: 03/06/17 17:23 Last Admin: 03/06/17 17:28 Dose: Etomidate (Amidate) 25 mg IV STAT STA Stop: 03/06/17 17:24 Last Admin: 03/06/17 17:25 Dose: 25 mg Comments: given by Ida Bird RN eMAR Start Stop Document 03/06/17 17:25 (Rec: 03/06/17 17:27 [id number]) Intravenous Solution Start Date 03/06/17 Start Time 17:25 End Date 03/06/17 End time 17:26 Total Infusion Time 1 Nicardipine HCl (Cardene Iv Premix) 20 mg in 200 mls @ 50 mls/hr IV .Q4H PRN; Protocol; 5 MG/HR PRN Reason: TITRATE PER MD ORDER Iodixanol (Visipaque 320 Mg/Ml 100 Ml) Confirm Administered Dose 100 ml IV .STK- MED ONE Stop: 03/06/17 17:00 Succinylcholine Chloride (Quelicin) Confirm Administered Dose 200 mg IV .STK- MED ONE Stop: 03/06/17 17:21 Last Admin: 03/06/17 17:28 Dose: Succinylcholine Chloride (Quelicin) 100 mg IV STAT STA Stop: 03/06/17 17:25 Last Admin: 03/06/17 17:26 Dose: 100 mg Comments: given by Ida Bird RN eMAR Start Stop Document 03/06/17 17:26 (Rec: 03/06/17 17:27 [facility] [place]-[id number]) Intravenous Solution Start Date 03/06/17 Start Time 17:26 End Date 03/06/17 End time 17:27 Total Infusion Time 1 rTPA Inclusion/Exclusion - Refusal of Treatment Patient Refused Treatment: No - Inclusion Criteria for Altepase Patient is 18 years or Older: Yes The Clinical Diagnosis of Ischemic Stroke That is Causing a Potentially Disabling Neurological Deficit: Yes Time of Onset is Well Established to be Less Than 270 Minute Before Treatment Would Begin: Yes Risk/Benefit Discussed With Patient/Family Member Present: Yes - Exclusion Criteria for Altepase Uncontrolled Hypertension at Time of Treatment (Systolic BP above 185 or Diastolic BP above 110 mmHg): No Active Internal Bleeding: No Known Bleeding Diathesis Including but Not Limited to: Platelets Below 100,000/ mm,PTT Above 40 sec After Heparin Use, Current Use of Oral Anitcoagulant With INR Greater Than 1.7 or PT Greater Than 15 secs: No Evidence of an Intracranial Hemorrhage: No Evidence of Major Acute Infarct With Signs Greater Than 1/3 MCA Territory: No Suspicion of Subarachnoid Hemorrhage on Pretreatment Evaluation Even if CT Head Negative For Hemorrhage: No NIHSS Stroke Scale 3 - Date/Time Evaluation Performed Time Performed: 17:25 When Was NIHSS Performed: Baseline - How Severe is the Stroke Level of Consciousness: 1=Drowsy LOC to Questions: 2=Neither correct LOC to commands: 2=Neither correct Best Gaze: 2=Forced deviation Facial: 0=Normal Motor Arm - Left: 3=No effort against gravity (falls immediately) Motor Arm - Right: 0=No drift Motor Leg - Left: 3=No effort against gravity (falls immediately) Motor Leg - Right: 1=Drift before 5 sec Limb Ataxia: 0=Absent Sensory: 1=Mild to moderate loss Best Language: 1=Mild to moderate aphasia Dysarthia: 1=Mild to moderate slurring Extinction & Inattention (Neglect): 2=Profound neglect(does not recognize own hand or orients to one side) - Scribe Statement The provider has reviewed the documentation as recorded by the Scribe Rafa Lou Provider Scribe Attestation: All medical record entries made by the Scribe were at my direction and personally dictated by me. I have reviewed the chart and agree that the record accurately reflects my personal performance of the history, physical exam, medical decision making, and the department course for this patient. I have also personally directed, reviewed, and agree with the discharge instructions and disposition. Disposition/Present on Arrival - Present on Arrival Any Indicators Present on Arrival: No History of DVT/PE: No History of Uncontrolled Diabetes: No Urinary Catheter: No History of Decub. Ulcer: No History Surgical Site Infection Following: None - Disposition Have Diagnosis and Disposition been Completed?: Yes Diagnosis: Acute CVA (cerebrovascular accident) Disposition: Transfer Overlook Disposition Time: 17:50 Condition: CRITICAL Referrals: Alvaro Ovalle, [Primary Care Provider] - Follow up with primary Forms: [facility] (PRN) ([place]) Critical Care Time - Critical Care Note Total Time (in mins): 60 Documented critical care: time excludes all time spent performing seperately billable procedures.
[2017-03-06 17:13] LABS: ALB/GLOB RATIO 1.1 (1.1-1.8); BILIRUBIN,TOTAL 0.5 mg/dL (0.2-1.3); CALCIUM 8.8 mg/dL (8.4-10.5); POTASSIUM 4.6 mmol/L (3.6-5.0); TOTAL PROTEIN 7.2 g/dL (5.8-8.3)
[2017-03-06] MEDS ORDERED: Succinylcholine 200 mg/10 ml Inj IV ONE (17:20)
[2017-03-06] MEDS ORDERED: Etomidate 20 mg/10ml Inj IV ONE ×2 (17:20→17:22)
[2017-03-06 17:23] LABS: TROPONIN I 0.03 ng/mL
[2017-03-06] MEDS ORDERED: Etomidate 20 mg/10ml Inj IV STA (17:23)
[2017-03-06] MEDS ORDERED: Succinylcholine 200 mg/10 ml Inj IV STA (17:24)
[2017-03-06 17:29] VITALS: TEMP 98
[2017-03-06 17:36] VITALS: RESP 14; O2SAT 100
[2017-03-06 17:38] LABS: INR 1.08 (0.93-1.08); PARTIAL THROMBOPLASTIN TIME 29.2 Seconds (23.7-30.8)
[2017-03-06 17:47] VITALS: BP 195/67; PULSE 74
--- NOTE | 2017-03-07 14:26 | CARD ---
APPROVED REPORT EKG Measurement Heart [id number] ID [id number] <Conclusion> Normal sinus rhythm Normal ECG
== END 2017-03-06 17:45 | disposition short-term general hospital (02) ==
LOC: ED 16:24
DX: I63.9 Cerebral infarction, unspecified (principal); I10 Essential (primary) hypertension; E11.9 Type 2 diabetes mellitus without complications
CPT/HCPCS: 70450; 71010; 80053; 80061; 83036; 84484; 85025; 85610; 85730; 86850; 86900; 93005; 96374; 96375; 99285; J0330; J2997